=== PATIENT | female | born 1955 | race Caucasian/White ===

== ENCOUNTER 2021-12-23 12:15 | Outpatient (RCR) | payer MEDICARE, OTHER, SELFPAY ==
--- NOTE | 2021-07-11 18:00 | PT.OIE ---
Current Diagnoses Stiffness of right knee, not elsewhere classified (07/11/21) Muscle weakness (generalized) (07/11/21) Unsteadiness on feet (07/11/21) Fall on same level, unspecified, initial encounter (07/11/21) Past Medical History (Last Updated 08/13/19 @ 17:48 by Hernán Rodarte DO) Acne (~1965) Acquired short leg syndrome on left Cardiomyopathy (~2011) Cervical somatic dysfunction Chicken pox Chronic back pain Chronic neck pain Fractures Headache (~1968) Hearing loss (~2016) History of ankle surgery History of cholecystectomy History of foot surgery (~2006) History of knee replacement History of tonsillectomy Measles Migraines (~1968) Mumps Osteopenia (~2015) Segmental and somatic dysfunction of abdomen and other regions Segmental and somatic dysfunction of lumbar region Segmental and somatic dysfunction of sacral region Segmental and somatic dysfunction of thoracic region Shoulder pain Somatic dysfunction of both lower extremities Somatic dysfunction of spine affecting pelvic region Stiffness of foot Vision disorder Past Surgical History (Last Reviewed 08/02/19 @ 07:22 by Hernán Rodarte DO) Anesthesia Femur fracture (~1972) History of ankle surgery History of cholecystectomy History of foot surgery (~2006) History of knee replacement History of tonsillectomy Visit Care Team Role Provider Type Shekhar Olvera MD Primary Care Provider Non-Staff Specialty: Family Practice Address: [address] [place] [address], [id number] Email: Shahzad Fu MD Family Provider Physician Specialty: Orthopedic Surgery Address: [address] [place] [address], [id number] Email: [email or web address] Laila Damon MD Attending Provider Non-Staff Referring Provider Specialty: Orthopedic Surgery Address: [address] [place] [address], [place] [id number], [place], [address] Email: Physical Therapy Initial Evaluation PT-OP-A Visit Information Start: 07/05/21 15:54 Freq: Status: Active Protocol: Document 07/11/21 15:06 LRN (Rec: 07/11/21 18:30 LRN [id number]) Out-Patient Physical Therapy Visit Information Visit Information Visit Type Initial Evaluation Visit Start Time 15:06 Visit Stop Time 16:00 Total Visit Minutes 54 Visit Number 1 Evaluation Information Evaluation Date 07/11/21 Precautions Precautions TTWB LLE, Osteopenia, Tiburcio TKA, R forefoot fusion, fx R wrist . PT-OP-B Current Condition Start: 07/05/21 15:54 Freq: Status: Active Protocol: Document 07/11/21 15:06 LRN (Rec: 07/11/21 18:30 LRN [id number]) Current Condition History of Current Condition Onset Date 06/28/21 Current Complaints L History of Current Condition Slipper on ice landing on R hip with L leg behind resulting in L distal femur fracture. Pt is 11 days s/p ORIF 06/30/21. PRECAUTIONS: TTWB LLE, knee imimobilizer for comfort, ROM as tolerated L knee. Pt has been doing a HEP (QS, GS, heel slides, assisted hip AB) 2x/day. Pt denies pain except in neck at nighttime during sleep. PMH: Tiburcio TKA, R forefoot fusion, fx R wrist. Prior Treatments and Tests HEP issued post-op. Future Testing and Treatments Planned Pt surgical follow up in 2 days. Treatment Goals Patient/Caregiver Goals Pt goal is to be able to get up and walk when she wants. Pt is agreeable to goal of walkling without the use of an assistive device. Prior Functional Status Baseline Function- ADL's Independent Baseline Function- Mobility Independent Baseline Function- Gait Independent w/o assistive device Baseline Function- Recreation/Hobbies Walked 1.5 miles daily. Hiked with walking pole. Current Functional Impairments (Reported) Functional Limitations- ADL's Wheelchair and walker bound with TTWBing LLE for gait using FWW. Functional Limitations- Mobility/Gait Walked 68' prior to fatigue from UE's. Functional Limitations- Recreation/ Returning to exercise gym for Hobbies neck/shoulder/upper body exercise. Personal Factors Other Personal Factors That May Effect Lives in [place], [facility] Therapy/Recovery Marycruz Gary is physical therapy patient at same clinic . Tiburcio TKA, L forefoot fused, herniated disc with discectomy ?L4-L5. Osteopenia. PT-OP-C Subjective Start: 07/05/21 15:54 Freq: Status: Active Protocol: Document 07/11/21 15:06 LRN (Rec: 07/11/21 18:30 LRN [id number]) Patient Questionnaires Lower Extremity Functional Scale LEFS Score 17 LEFS Impairment 60 to 79% Impaired (Score 17- 31) OP-PT Pain Assessment Pain Assessment Grid Paper Pain Assessment Grid Completed Yes Comments Pain Comments No complaints of pain. PT-OP-G Mobility & Gait Start: 07/05/21 15:54 Freq: Status: Active Protocol: Document 07/11/21 15:06 LRN (Rec: 07/11/21 18:30 LRN [id number]) OP Mobility Evaluation Bed Mobility Supine to and from Sit Independent Transfers Sit to Stand Independent with FWW Bed to Chair Transfers Independent with FWW Car Transfers Independent Wheelchair Management Type of Wheelchair Normal Assessment Details Pt able to self propel and maneuver forward, backward and turn around independently. OP Gait Assessment Gait Gait Assistance Required: Independent Distance (Feet) 76 Able to Maintain Weight Bearing Status No During Gait Assistive Devices Assistive Device Front Wheeled Walker Gait Deviations General Gait Pattern Step-to Gait Comments Gait Comments Pt is TTWB LLE. PT-OP-K Range of Motion Start: 07/05/21 15:54 Freq: Status: Active Protocol: Document 07/11/21 15:06 LRN (Rec: 07/11/21 18:30 LRN [id number]) Knee Goniometric Range of Motion Knee Right Knee ROM WFL Yes Patient Position Supine Flexion Active (degrees) 133 Left Knee ROM WFL No Patient Position Supine Flexion Active (degrees) 88 Extension Passive (degrees) 0 Ankle and Foot Goniometric Range of Motion Ankle and Foot Right Active Ankle/Foot ROM WFL Yes Testing Position Supine Dorsiflexion with Knee Extended 0 Plantarflexion 45 Left Active Ankle/Foot ROM WFL No Testing Position Supine Dorsiflexion with Knee Extended 0 Plantarflexion 55 PT-OP-M Strength Start: 07/05/21 15:54 Freq: Status: Active Protocol: Document 07/11/21 15:06 LRN (Rec: 07/11/21 18:30 LRN [id number]) Knee Strength Knee Manual Muscle Testing Right Flexion (S2) 5 Normal Extension (L3) 5 Normal Left Flexion (S2) 2- Poor- Extension (L3) 2- Poor- Comments Deferred due TTWBing LLE restriction, but pt is able to partially bend and straighten her knee against gravity Ankle/Foot Strength Ankle and Foot Manual Muscle Testing Right Dorsiflexion (L4) 5 Normal Plantarflexion (S1) 5 Normal Left Dorsiflexion (L4) 2- Poor- Plantarflexion (S1) 2 Poor PT-OP-Q Treatments Start: 07/05/21 15:54 Freq: Status: Active Protocol: Document 07/11/21 15:06 LRN (Rec: 07/11/21 18:30 LRN [id number]) Therapeutic Exercises Supine Exercises Assisted hip AB Supine Exercise Name Assisted hip AB Side left Reps/Minutes 10x Heel slide Supine Exercise Name Heel slide Side left Reps/Minutes 10x QS/GS Supine Exercise Name QS & GS (once positioned in neutral at hips) Side left Reps/Minutes 10H x 10 Comments Phys cuing to not use ankle ms to assist with knee ext. Gait Training Gait Activity FWW Description Gt with FWW Level of Assistance SBA Surface Level Distance/Duration 76 Treatment Focus Not advancing body beyond hand placement on FWW. Comments Pt tended to walk with body forward of hands in NWBing position. Self-Care/Home Management Treatment Education Other Education Discussed results of evaluation, goals, and plan of care (POC). Pt agreeable to goals and POC. Discussed appropriate ex at her local gym to stick to upper body ex for strengthening and aerobic ex. Activities Self-Care/Home Management Activities I/S pt to continue HEP. I/S pt in tricep press with her TBands and hand weights at home. PT-OP-T Assessment and Plan Start: 07/05/21 15:54 Freq: Status: Active Protocol: Document 07/11/21 15:06 LRN (Rec: 07/11/21 18:30 LRN [id number]) Physical Therapy Assessment Rehab Potential Rehabilitation Potential Excellent Evaluation Complexity Number of Personal Factors/Comorbidities 3 or More Number of Body Systems Impaired 4 or More Clinical Presentation at Evaluation Evolving Impairments Impairments Activity Tolerance,Functional Activities,Functional Mobility ,Gait,ROM,Soft Tissue Mobility ,Strength Goals Three Impairment Decreased function per LEFS score of 17 Impairment LEFS score of 17 indicates 60- 79% impaired. Short Term Goal (STG) Improve function per LEFS score of no less than 32 (40- 59% impaired) STG Duration 09/10/21 Snow Shoveler Goal (LTG) Improve function per LEFS score no less than 63 (1-19% impaired). LTG Duration 10/09/21 Two Impairment Not able to ambulate without use of assistive device Impairment Gait 76' with FWW/NWBing LLE prior to fatigue. Short Term Goal (STG) Pt will be able to ambulate 100' with FWW with use of an assistive device and greater WBing of LLE when cleared for partial WBing of LLE. STG Duration 08/26/21 Snow Shoveler Goal (LTG) Pt will be able to tolerate no less than 100' gait without use of assistive device when cleared for full WBing of LLE. LTG Duration 10/09/21 One Impairment Lacks appropriate self care HEP Mcfp Goal (LTG) Pt will be independent in a self care HEP to promote ongoing L knee/hip strengthening/ROM and core stabilization. LTG Duration 10/09/21 Assessment Summary Assessment Pt is a 66 yo female who is 11 days s/p ORIF 06/30/21 to distal L femur. Referral indicates: PRECAUTIONS: TTWB LLE, knee imimobilizer for comfort, ROM as tolerated L knee. The pt attends today without complaints of L leg pain with review of her home exercises or transfer/gait mobility. She is decreased in her active knee and hip mobility. During gait she demonstrated slightly unsafe mechanics walking too far forward into the walker. She improved in safety with trainng, but has a tendency to go beyond her center of balance in the walker in her haste to speed up her gait distance. She is safe and appropriate with her wheelchair mobility. She was able to demonstrate good tolerance to her home exercises that were issued to her after surgery. Due to the lack of protocol, further physical therapy rehabilitation will be deferred until the pt returns from her 2 week follow up visit. The pt understand further recommendations are needed in order to proceed with her physical therapy. The pt would benefit from skilled physical therapy for upper body strengthening and education of self care and gait training, and when appropriate progressed on a ROM, strengthening and gait/ balance training once she is advanced to full LLE weightbearing. We will proceed as per your recommendation issued after her 2 week post-op visit. Physical Therapy Plan Frequency and Duration Frequency of Treatment 2x/Week Plan of Care Start Date 07/11/21 Plan of Care End Date 10/09/21 Therapeutic Interventions Therapeutic Interventions Aquatic Therapy,Balance Training,Gait Training,Home Exercise Program,Manual Therapy,Neuromuscular Re- education,Patient/Caregiver Education,Self-Care/Home Management,Soft Tissue Mobilization,Taping, Therapeutic Activities, Therapeutic Exercises Modalities Cold Pack/Ice Massage,Hot Packs Next Visit Focus/Plan Next Note Type Treatment Note Next Visit Plan Continue therapy 1x/week on self home program for upper body strengthening and gait training w/TTWBing of LLE. Progress to 2x/week when pt is able to tolerate more therapy and with progression of her weightbearing tolerance. Progress L knee rehab as recommended by surgical physician following her 2 week post-op visit. When appropriate start education/ training for self STM of scar if healed, assess knee strength & ROM against gravity , upper body/tricep ext/core strengthening. Hip strengthening if cleared for greater LLE weightbearing.
--- NOTE | 2021-07-11 18:00 | PT.OPPOC ---
Physical, Occupational & Speech Therapy At [facility] Current Diagnoses Stiffness of right knee, not elsewhere classified (07/11/21) Muscle weakness (generalized) (07/11/21) Unsteadiness on feet (07/11/21) Fall on same level, unspecified, initial encounter (07/11/21) Visit Care Team Role Provider Type Shekhar Olvera MD Primary Care Provider Non-Staff Specialty: Family Practice Address: [address] [place] [address], [id number] Email: Shahzad Fu MD Family Provider Physician Specialty: Orthopedic Surgery Address: [address] [place] [address], [address] Email: [email or web address] Laila Daomn MD Attending Provider Non-Staff Referring Provider Specialty: Orthopedic Surgery Address: [address] [place] [address], [id number], [place], [address] Email: Plan Of Care PT-OP-T Assessment and Plan Start: 07/05/21 15:54 Freq: Status: Active Protocol: Document 07/11/21 15:06 LRN (Rec: 07/11/21 18:30 LRN [id number]) Physical Therapy Assessment Rehab Potential Rehabilitation Potential Excellent Evaluation Complexity Number of Personal Factors/Comorbidities 3 or More Number of Body Systems Impaired 4 or More Clinical Presentation at Evaluation Evolving Impairments Impairments Activity Tolerance,Functional Activities,Functional Mobility ,Gait,ROM,Soft Tissue Mobility ,Strength Goals Three Impairment Decreased function per LEFS score of 17 Impairment LEFS score of 17 indicates 60- 79% impaired. Short Term Goal (STG) Improve function per LEFS score of no less than 32 (40- 59% impaired) STG Duration 09/10/21 [employer] Operator Goal (LTG) Improve function per LEFS score no less than 63 (1-19% impaired). LTG Duration 10/09/21 Two Impairment Not able to ambulate without use of assistive device Impairment Gait 76' with FWW/NWBing LLE prior to fatigue. Short Term Goal (STG) Pt will be able to ambulate 100' with FWW with use of an assistive device and greater WBing of LLE when cleared for partial WBing of LLE. STG Duration 08/26/21 Intermediate Goal (LTG) Pt will be able to tolerate no less than 100' gait without use of assistive device when cleared for full WBing of LLE. LTG Duration 10/09/21 One Impairment Lacks appropriate self care HEP Intermediate Goal (LTG) Pt will be independent in a self care HEP to promote ongoing L knee/hip strengthening/ROM and core stabilization. LTG Duration 10/09/21 Assessment Summary Assessment Pt is a 66 yo female who is 11 days s/p ORIF 06/30/21 to distal L femur. Referral indicates: PRECAUTIONS: TTWB LLE, knee imimobilizer for comfort, ROM as tolerated L knee. The pt attends today without complaints of L leg pain with review of her home exercises or transfer/gait mobility. She is decreased in her active knee and hip mobility. During gait she demonstrated slightly unsafe mechanics walking too far forward into the walker. She improved in safety with trainng, but has a tendency to go beyond her center of balance in the walker in her haste to speed up her gait distance. She is safe and appropriate with her wheelchair mobility. She was able to demonstrate good tolerance to her home exercises that were issued to her after surgery. Due to the lack of protocol, further physical therapy rehabilitation will be deferred until the pt returns from her 2 week follow up visit. The pt understand further recommendations are needed in order to proceed with her physical therapy. The pt would benefit from skilled physical therapy for upper body strengthening and education of self care and gait training, and when appropriate progressed on a ROM, strengthening and gait/ balance training once she is advanced to full LLE weightbearing. We will proceed as per your recommendation issued after her 2 week post-op visit. Physical Therapy Plan Frequency and Duration Frequency of Treatment 2x/Week Plan of Care Start Date 07/11/21 Plan of Care End Date 10/09/21 Therapeutic Interventions Therapeutic Interventions Aquatic Therapy,Balance Training,Gait Training,Home Exercise Program,Manual Therapy,Neuromuscular Re- education,Patient/Caregiver Education,Self-Care/Home Management,Soft Tissue Mobilization,Taping, Therapeutic Activities, Therapeutic Exercises Modalities Cold Pack/Ice Massage,Hot Packs Next Visit Focus/Plan Next Note Type Treatment Note Next Visit Plan Continue therapy 1x/week on self home program for upper body strengthening and gait training w/TTWBing of LLE. Progress to 2x/week when pt is able to tolerate more therapy and with progression of her weightbearing tolerance. Progress L knee rehab as recommended by surgical physician following her 2 week post-op visit. When appropriate start education/ training for self STM of scar if healed, assess knee strength & ROM against gravity , upper body/tricep ext/core strengthening. Hip strengthening if cleared for greater LLE weightbearing. Plan of Care Dates Plan of Care Start Date 07/11/21 Plan of Care End Date 10/09/21 Electronically Signed by: Colleen Mariano, PT 07/12/21 [id number] Please Sign and Return: I have reviewed this Plan of Care and certify that the skilled therapy services above are required to meet the patient?s needs. Physician Signature Date Printed Name and Credentials Clinical Instructor Signature Printed Name and Credentials
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
--- NOTE | 2021-08-11 07:35 | PT-OP ANOTE ---
Pt left voice message cancelled today's appt, spouse exposed to Covid + person with symptoms (although masks were donned). Pt states not having symptoms but wants to be safe and stay home quarantine will covid test in few days for safety before return to PT early next week.
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
--- NOTE | 2021-09-06 18:38 | PT.OTRE ---
Current Diagnoses Stiffness of right knee, not elsewhere classified (09/06/21) Muscle weakness (generalized) (09/06/21) Unsteadiness on feet (09/06/21) Fall on same level, unspecified, initial encounter (09/06/21) Presence of unspecified artificial knee joint (09/06/21) Past Medical History (Last Updated 08/13/19 @ 17:48 by Hernán Rodarte DO) Acne (~1965) Acquired short leg syndrome on left Cardiomyopathy (~2011) Cervical somatic dysfunction Chicken pox Chronic back pain Chronic neck pain Fractures Headache (~1968) Hearing loss (~2016) History of ankle surgery History of cholecystectomy History of foot surgery (~2006) History of knee replacement History of tonsillectomy Measles Migraines (~1968) Mumps Osteopenia (~2015) Segmental and somatic dysfunction of abdomen and other regions Segmental and somatic dysfunction of lumbar region Segmental and somatic dysfunction of sacral region Segmental and somatic dysfunction of thoracic region Shoulder pain Somatic dysfunction of both lower extremities Somatic dysfunction of spine affecting pelvic region Stiffness of foot Vision disorder Surgical History (Last Reviewed 08/02/19 @ 07:22 by Hernán Rodarte DO) Anesthesia Femur fracture (~1972) History of ankle surgery History of cholecystectomy History of foot surgery (~2006) History of knee replacement History of tonsillectomy Visit Care Team Role Provider Type Shekhar Olvera MD Primary Care Provider Non-Staff Specialty: Family Practice Address: [address] [place] [address], [id number] Email: Shahzad Fu MD Family Provider Physician Specialty: Orthopedic Surgery Address: [address] [place] [address], [address] Email: [email or web address] Laila Damon MD Attending Provider Non-Staff Referring Provider Specialty: Orthopedic Surgery Address: [address] [place] [id number], [place], [address] Email: Physical Therapy Re-Evaluation PT-OP-A Visit Information Start: 07/05/21 15:54 Freq: Status: Active Protocol: Document 09/06/21 13:48 [facility] (Rec: 09/06/21 18:37 [facility] [id number]) Out-Patient Physical Therapy Visit Information Visit Information Visit Type Re-Evaluation Visit Note 07/11 Visit Start Time 13:47 Visit Stop Time 14:30 Total Visit Minutes 43 Visit Number 12 Number of MANAGER DOCUMENTATION Visits 0 PT-OP-B Current Condition Start: 07/05/21 15:54 Freq: Status: Active Protocol: Document 07/11/21 15:06 [facility] (Rec: 07/11/21 18:30 [facility] [id number]) Current Condition History of Current Condition Onset Date 06/28/21 Current Complaints L History of Current Condition Slipper on ice landing on R hip with L leg behind resulting in L distal femur fracture. Pt is 11 days s/p ORIF 06/30/21. PRECAUTIONS: TTWB LLE, knee imimobilizer for comfort, ROM as tolerated L knee. Pt has been doing a HEP (QS, GS, heel slides, assisted hip AB) 2x/day. Pt denies pain except in neck at nighttime during sleep. PMH: Tiburcio TKA, R forefoot fusion, fx R wrist. Prior Treatments and Tests HEP issued post-op. Future Testing and Treatments Planned Pt surgical follow up in 2 days. Treatment Goals Patient/Caregiver Goals Pt goal is to be able to get up and walk when she wants. Pt is agreeable to goal of walkling without the use of an assistive device. Prior Functional Status Baseline Function- ADL's Independent Baseline Function- Mobility Independent Baseline Function- Gait Independent w/o assistive device Baseline Function- Recreation/Hobbies Walked 1.5 miles daily. Hiked with walking pole. Current Functional Impairments (Reported) Functional Limitations- ADL's Wheelchair and walker bound with TTWBing LLE for gait using FWW. Functional Limitations- Mobility/Gait Walked 68' prior to fatigue from UE's. Functional Limitations- Recreation/ Returning to exercise gym for Hobbies neck/shoulder/upper body exercise. Personal Factors Other Personal Factors That May Effect Lives in [place], spouse Therapy/Recovery Marycruz Vega is physical therapy patient at same clinic . Tiburcio TKA, L forefoot fused, herniated disc with discectomy ?L4-L5. Osteopenia. PT-OP-C Subjective Start: 07/05/21 15:54 Freq: Status: Active Protocol: Document 09/06/21 13:48 [facility] (Rec: 09/06/21 18:37 [facility] [id number]) OP-PT Subjective Patient Comments Patient Comments Pt reports she has been amb w/ single crutch. thinks it may be too short PT-OP-G Mobility & Gait Start: 07/05/21 15:54 Freq: Status: Active Protocol: Document 07/11/21 15:06 [facility] (Rec: 07/11/21 18:30 [facility] [id number]) OP Mobility Evaluation Bed Mobility Supine to and from Sit Independent Transfers Sit to Stand Independent with FWW Bed to Chair Transfers Independent with FWW Car Transfers Independent Wheelchair Management Type of Wheelchair Normal Assessment Details Pt able to self propel and maneuver forward, backward and turn around independently. OP Gait Assessment Gait Gait Assistance Required: Independent Distance (Feet) 76 Able to Maintain Weight Bearing Status No During Gait Assistive Devices Assistive Device Front Wheeled Walker Gait Deviations General Gait Pattern Step-to Gait Comments Gait Comments Pt is TTWB LLE. PT-OP-K Range of Motion Start: 07/05/21 15:54 Freq: Status: Active Protocol: Document 09/06/21 13:48 [facility] (Rec: 09/06/21 18:37 [facility] [id number]) Hip Goniometric Range of Motion Hip Measured in Degrees Right Active Flexion w/Knee Flexed 122 Straight Leg Raise 90 Abduction 32 Left Active Flexion w/Knee Flexed 116 Straight Leg Raise 90 Abduction 11 Comments AAROM abd and SLR Knee Goniometric Range of Motion Knee Measured in Degrees Left Flexion Active (degrees) 112 Extension Active (degrees) 0 PT-OP-M Strength Start: 07/05/21 15:54 Freq: Status: Active Protocol: Document 09/06/21 13:48 [facility] (Rec: 09/06/21 18:37 [facility] [id number]) Hip Strength Hip Manual Muscle Testing Left Flexion (L2) 3+ Fair+ Extension (S1) 3 Fair Abduction 3 Fair Adduction 3+ Fair+ External Rotation 3+ Fair+ Internal Rotation 3- Fair- Right Flexion (L2) 4+ Good+ Extension (S1) 3+ Fair+ Abduction 4- Good- Adduction 4 Good External Rotation 5 Normal Internal Rotation 5 Normal Knee Strength Knee Manual Muscle Testing Right Flexion (S2) 5 Normal Extension (L3) 5 Normal Left Flexion (S2) 4+ Good+ Extension (L3) 3+ Fair+ Ankle/Foot Strength Ankle and Foot Manual Muscle Testing Right Dorsiflexion (L4) 5 Normal Plantarflexion (S1) 5 Normal Left Dorsiflexion (L4) 5 Normal Plantarflexion (S1) 5 Normal Comments PF tested seated PT-OP-Q Treatments Start: 07/05/21 15:54 Freq: Status: Active Protocol: Document 09/06/21 13:48 [facility] (Rec: 09/06/21 18:37 [facility] [id number]) Therapeutic Exercises Standing Exercises TKE Side left Equipment Used L1 Reps/Minutes 15 Gait Training Gait Activity wt shifts Comments standing in mirror lat wt shifts before and after manual 10 ea working on finding neutral & finding full WB bwtn LEs gait Comments 1. work on step through w/good heel contact w/RLE and she would get off LLE quickly Manual Therapy Treatment Soft Tissue Mobilization QL Body Location L QL & ant and lat over iliac crest Mobilization Type Myofascial Release,Strumming, Sustained Pressure Intensity/Depth Moderate Body Position Sidelying Comments w/post dep FM PT-OP-T Assessment and Plan Start: 07/05/21 15:54 Freq: Status: Active Protocol: Document 09/06/21 13:48 [facility] (Rec: 09/06/21 18:37 [facility] [id number]) Physical Therapy Assessment Goals ambulation Short Term Goal (STG) Pt will be able to amb short distances w/o AD w/good gait mechanics STG Duration 10/29/21 [facility] Goal (LTG) Pt will be able to amb 2 miles without AD w/o inc pian greater than 2/10. LTG Duration 12/07/21 Three Impairment Decreased function per LEFS score of 17 Impairment LEFS score of 17 indicates 60- 79% impaired. Short Term Goal (STG) Improve function per LEFS score of no less than 32 (40- 59% impaired) 09/06-n/t STG Duration 10/07/21 [facility] Goal (LTG) Improve function per LEFS score no less than 63 (1-19% impaired). LTG Duration 12/02/21 Two Impairment Not able to ambulate without use of assistive device Impairment Gait 76' with FWW/NWBing LLE prior to fatigue. Short Term Goal (STG) Pt will be able to ambulate 100' with FWW with use of an assistive device and greater WBing of LLE when cleared for partial WBing of LLE. 08/23/21: progressinft maintaining PWB 20% of BW w/ FWW, step to gait. STG Duration achieved 09/06 [facility] Goal (LTG) Pt will be able to tolerate no less than 100' gait without use of assistive device when cleared for full WBing of LLE. 08/23/21: progressing 155ft maintaining PWB 20% of BW w/ FWW, step to gait. LTG Duration achieved 3 One Impairment Lacks appropriate self care HEP Short Term Goal (STG) Pt will be independent in a self care HEP to promote ongoing L knee/hip strengthening/ROM and core stabilization. 09/06-advancinga s able STG Duration 10/07 [facility] Goal (LTG) Pt will have at least 4+/5 LE MMT in all planes B to show improved stability of hip and knee to improve ability to mobilize int he community LTG Duration 12/07 Assessment Summary Assessment Pt is cleared now with new referral for progressive WBAT to LLE. She still has significant quad and glute weakness that limits her ability to ambulate with normalized motion. She had difficulty getting LLE to ground when R knee was straight but after manual, pt was able to comfortably. She was trained w/wt shifts for further awareness of wt shifting to LLE. Cont PT to progress gait, knee and hip ROM on L and LE and core strengthening along w/balance to return to typical active lifestyle. Physical Therapy Plan Frequency and Duration Frequency of Treatment 2x/Week Duration of Treatment 3 months Plan of Care Start Date 09/06/21 Plan of Care End Date 12/07/21 Therapeutic Interventions Therapeutic Interventions Aquatic Therapy,Balance Training,Gait Training,Home Exercise Program,Joint Mobilizations,Manual Therapy, Neuromuscular Re-education, Patient/Caregiver Education, Self-Care/Home Management,Soft Tissue Mobilization,Taping, Therapeutic Activities, Therapeutic Exercises Modalities Cold Pack/Ice Massage,Electric Stimulation,Hot Packs, Ultrasound Next Visit Focus/Plan Next Note Type Treatment Note Next Visit Plan advance terminal quad strength , work on wt shifting in standing for improved quad and glute engagement, try some balance activities DL, manual to improve pelvic girdle patterns and L hip ROM
--- NOTE | 2021-09-06 18:38 | PT.OPPOC ---
Physical, Occupational & Speech Therapy At [facility] Current Diagnoses Stiffness of right knee, not elsewhere classified (09/06/21) Muscle weakness (generalized) (09/06/21) Unsteadiness on feet (09/06/21) Fall on same level, unspecified, initial encounter (09/06/21) Presence of unspecified artificial knee joint (09/06/21) Visit Care Team Role Provider Type Shekhar Olvera MD Primary Care Provider Non-Staff Specialty: Family Practice Address: [address] [place] [address], [address] Email: Shahzad uF MD Family Provider Physician Specialty: Orthopedic Surgery Address: [address] [place] [address], [address] Email: [email or web address] Laila Damon MD Attending Provider Non-Staff Referring Provider Specialty: Orthopedic Surgery Address: [address] [place] [address], [id number], [place], [address] Email: Plan Of Care PT-OP-T Assessment and Plan Start: 07/05/21 15:54 Freq: Status: Active Protocol: Document 09/06/21 13:48 [facility] (Rec: 09/06/21 18:37 [facility] [id number]) Physical Therapy Assessment Goals ambulation Short Term Goal (STG) Pt will be able to amb short distances w/o AD w/good gait mechanics STG Duration 10/29/21 [employer] Goal (LTG) Pt will be able to amb 2 miles without AD w/o inc pian greater than 2/10. LTG Duration 12/07/21 Three Impairment Decreased function per LEFS score of 17 Impairment LEFS score of 17 indicates 60- 79% impaired. Short Term Goal (STG) Improve function per LEFS score of no less than 32 (40- 59% impaired) 8-n/t STG Duration 10/07/21 [employer] Goal (LTG) Improve function per LEFS score no less than 63 (1-19% impaired). LTG Duration 12/02/21 Two Impairment Not able to ambulate without use of assistive device Impairment Gait 76' with FWW/NWBing LLE prior to fatigue. Short Term Goal (STG) Pt will be able to ambulate 100' with FWW with use of an assistive device and greater WBing of LLE when cleared for partial WBing of LLE. 08/23/21: progressinft maintaining PWB 20% of BW w/ FWW, step to gait. STG Duration achieved 09/06 [facility] Goal (LTG) Pt will be able to tolerate no less than 100' gait without use of assistive device when cleared for full WBing of LLE. 08/23/21: progressing 155ft maintaining PWB 20% of BW w/ FWW, step to gait. LTG Duration achieved 09/06 One Impairment Lacks appropriate self care HEP Short Term Goal (STG) Pt will be independent in a self care HEP to promote ongoing L knee/hip strengthening/ROM and core stabilization. 09/06-advancinga s able STG Duration 10/07 [facility] Goal (LTG) Pt will have at least 4+/5 LE MMT in all planes B to show improved stability of hip and knee to improve ability to mobilize int he community LTG Duration 12/07 Assessment Summary Assessment Pt is cleared now with new referral for progressive WBAT to LLE. She still has significant quad and glute weakness that limits her ability to ambulate with normalized motion. She had difficulty getting LLE to ground when R knee was straight but after manual, pt was able to comfortably. She was trained w/wt shifts for further awareness of wt shifting to LLE. Cont PT to progress gait, knee and hip ROM on L and LE and core strengthening along w/balance to return to typical active lifestyle. Physical Therapy Plan Frequency and Duration Frequency of Treatment 2x/Week Duration of Treatment 3 months Plan of Care Start Date 09/06/21 Plan of Care End Date 12/07/21 Therapeutic Interventions Therapeutic Interventions Aquatic Therapy,Balance Training,Gait Training,Home Exercise Program,Joint Mobilizations,Manual Therapy, Neuromuscular Re-education, Patient/Caregiver Education, Self-Care/Home Management,Soft Tissue Mobilization,Taping, Therapeutic Activities, Therapeutic Exercises Modalities Cold Pack/Ice Massage,Electric Stimulation,Hot Packs, Ultrasound Next Visit Focus/Plan Next Note Type Treatment Note Next Visit Plan advance terminal quad strength , work on wt shifting in standing for improved quad and glute engagement, try some balance activities DL, manual to improve pelvic girdle patterns and L hip ROM Plan of Care Dates Plan of Care Start Date 09/06/21 Plan of Care End Date 12/07/21 Electronically Signed by: Brit Peterson, PT 09/06/21 0974 Please Sign and Return: I have reviewed this Plan of Care and certify that the skilled therapy services above are required to meet the patient?s needs. Physician Signature Date Printed Name and Credentials Clinical Instructor Signature Printed Name and Credentials
--- NOTE | 2021-09-09 15:04 | PT.OTN ---
Current Diagnoses Stiffness of right knee, not elsewhere classified (09/09/21) Muscle weakness (generalized) (09/09/21) Unsteadiness on feet (09/09/21) Fall on same level, unspecified, initial encounter (09/09/21) Presence of unspecified artificial knee joint (09/09/21) Physical Therapy Treatment Note PT-OP-A Visit Information Start: 07/05/21 15:54 Freq: Status: Active Protocol: Document 09/09/21 14:52 LJ (Rec: 09/09/21 15:04 LJ [id number]) Out-Patient Physical Therapy Visit Information Visit Information Visit Type Aquatic Treatment Note Visit Start Time 11:00 Visit Stop Time 11:45 Total Visit Minutes 45 Visit Number 13 Number of ACCOUNT TECHNICIAN Visits 1 PT-OP-B Current Condition Start: 07/05/21 15:54 Freq: Status: Active Protocol: Document 07/11/21 15:06 LRN (Rec: 07/11/21 18:30 LRN [id number]) Current Condition History of Current Condition Onset Date 06/28/21 Current Complaints L History of Current Condition Slipper on ice landing on R hip with L leg behind resulting in L distal femur fracture. Pt is 11 days s/p ORIF 06/30/21. PRECAUTIONS: TTWB LLE, knee imimobilizer for comfort, ROM as tolerated L knee. Pt has been doing a HEP (QS, GS, heel slides, assisted hip AB) 2x/day. Pt denies pain except in neck at nighttime during sleep. PMH: Tiburcio TKA, R forefoot fusion, fx R wrist. Prior Treatments and Tests HEP issued post-op. Future Testing and Treatments Planned Pt surgical follow up in 2 days. Treatment Goals Patient/Caregiver Goals Pt goal is to be able to get up and walk when she wants. Pt is agreeable to goal of walkling without the use of an assistive device. Prior Functional Status Baseline Function- ADL's Independent Baseline Function- Mobility Independent Baseline Function- Gait Independent w/o assistive device Baseline Function- Recreation/Hobbies Walked 1.5 miles daily. Hiked with walking pole. Current Functional Impairments (Reported) Functional Limitations- ADL's Wheelchair and walker bound with TTWBing LLE for gait using FWW. Functional Limitations- Mobility/Gait Walked 68' prior to fatigue from UE's. Functional Limitations- Recreation/ Returning to exercise gym for Hobbies neck/shoulder/upper body exercise. Personal Factors Other Personal Factors That May Effect Lives in [place], spouse Therapy/Recovery Marycruz Vega is physical therapy patient at same clinic . Tiburcio TKA, L forefoot fused, herniated disc with discectomy ?L4-L5. Osteopenia. PT-OP-C Subjective Start: 07/05/21 15:54 Freq: Status: Active Protocol: Document 09/09/21 14:52 LJ (Rec: 09/09/21 15:04 LJ [id number]) OP-PT Subjective Patient Comments Patient Comments Pt arrived ambulating with 2 crutches. States she is feeling very weak on LLE and her L knee is somewhat painful . She wants to get her gait pattern established for better ambulation on land PT-OP-G Mobility & Gait Start: 07/05/21 15:54 Freq: Status: Active Protocol: Document 07/11/21 15:06 LRN (Rec: 07/11/21 18:30 LR [id number]) OP Mobility Evaluation Bed Mobility Supine to and from Sit Independent Transfers Sit to Stand Independent with FWW Bed to Chair Transfers Independent with FWW Car Transfers Independent Wheelchair Management Type of Wheelchair Normal Assessment Details Pt able to self propel and maneuver forward, backward and turn around independently. OP Gait Assessment Gait Gait Assistance Required: Independent Distance (Feet) 76 Able to Maintain Weight Bearing Status No During Gait Assistive Devices Assistive Device Front Wheeled Walker Gait Deviations General Gait Pattern Step-to Gait Comments Gait Comments Pt is TTWB LLE. PT-OP-K Range of Motion Start: 07/05/21 15:54 Freq: Status: Active Protocol: Document 09/06/21 13:48 [facility] (Rec: 09/06/21 18:37 [facility] [id number]) Hip Goniometric Range of Motion Hip Right Active Flexion w/Knee Flexed 122 Straight Leg Raise 90 Abduction 32 Left Active Flexion w/Knee Flexed 116 Straight Leg Raise 90 Abduction 11 Comments AAROM abd and SLR Knee Goniometric Range of Motion Knee Left Flexion Active (degrees) 112 Extension Active (degrees) 0 PT-OP-M Strength Start: 07/05/21 15:54 Freq: Status: Active Protocol: Document 09/06/21 13:48 [facility] (Rec: 09/06/21 18:37 [facility] [id number]) Hip Strength Hip Manual Muscle Testing Left Flexion (L2) 3+ Fair+ Extension (S1) 3 Fair Abduction 3 Fair Adduction 3+ Fair+ External Rotation 3+ Fair+ Internal Rotation 3- Fair- Right Flexion (L2) 4+ Good+ Extension (S1) 3+ Fair+ Abduction 4- Good- Adduction 4 Good External Rotation 5 Normal Internal Rotation 5 Normal Knee Strength Knee Manual Muscle Testing Right Flexion (S2) 5 Normal Extension (L3) 5 Normal Left Flexion (S2) 4+ Good+ Extension (L3) 3+ Fair+ Ankle/Foot Strength Ankle and Foot Manual Muscle Testing Right Dorsiflexion (L4) 5 Normal Plantarflexion (S1) 5 Normal Left Dorsiflexion (L4) 5 Normal Plantarflexion (S1) 5 Normal Comments PF tested seated PT-OP-Q Treatments Start: 07/05/21 15:54 Freq: Status: Active Protocol: Document 09/06/21 13:48 [facility] (Rec: 09/06/21 18:37 [facility] [id number]) Therapeutic Exercises Standing Exercises TKE Side left Equipment Used L1 Reps/Minutes 15 Gait Training Gait Activity wt shifts Comments standing in mirror lat wt shifts before and after manual 10 ea working on finding neutral & finding full WB bwtn LEs gait Comments 1. work on step through w/good heel contact w/RLE and she would get off LLE quickly Manual Therapy Treatment Soft Tissue Mobilization QL Body Location L QL & ant and lat over iliac crest Mobilization Type Myofascial Release,Strumming, Sustained Pressure Intensity/Depth Moderate Body Position Sidelying Comments w/post dep FM PT-OP-S Aquatic Treatment Start: 08/26/21 14:30 Freq: Status: Active Protocol: Document 09/09/21 14:52 VIK (Rec: 09/09/21 15:04 LJ [id number]) Aquatics Treatment Pool Entry/Exit Pool Entry/Exit Method Lift Assistance Standby Assistance Water Walking [place] Water Level Chest Level Monster Walk Water Level Chest Level Lunge Walk Water Level Waist Level [place] Water Level Chest Level [place] Water Level Chest Level Comments emphasize toes forward Sideways Water Level Chest Level Comments emphasize toes forward Backwards Water Level Chest Level Forwards Water Level Chest Level Lower Extremity Exercises hip hike Water Level Waist Level Reps/Duration 15 B HS curl Body Position Standing Water Level Chest Level Reps/Duration 15 x 2 B seated knee fl/ext Body Position Sitting Water Level Neck Level Reps/Duration 15 x 2 B hip f/e;ab/ad;circles Details hh on wall Body Position Standing Water Level Chest Level Reps/Duration 10 B Lower Extremity Stretches gastroc, HS, soleus Details assisted Body Position Standing Water Level Waist Level Reps/Duration 2 x 45' LLE Comments noodle under ankle TFL Details at wall Body Position Standing Water Level Chest Level Reps/Duration 2 x 30' B Comments LLE quads, hip flexors Details at wall Body Position Standing Water Level Waist Level Reps/Duration 2 x 45' B Comments noodle under ankle-quad stretch Spinal Exercises seated wonder board Reps/Duration 5 min Comments pulling forward, hand out of water B, pelvic tilts all ways [place] Activities [place] Activities Bicycle,Bicycle Backwards, Cross Country,Running,Sit Kicks Other Activities Deep kicks at wall DLS Equipment belt Duration 15 PT-OP-T Assessment and Plan Start: 07/05/21 15:54 Freq: Status: Active Protocol: Document 09/09/21 14:52 VIK (Rec: 09/09/21 15:04 VIK [id number]) Physical Therapy Assessment Rehab Potential Rehabilitation Potential Excellent Evaluation Complexity Number of Personal Factors/Comorbidities 3 or More Number of Body Systems Impaired 4 or More Clinical Presentation at Evaluation Evolving Impairments Impairments Activity Tolerance,Functional Activities,Functional Mobility ,Gait,ROM,Soft Tissue Mobility ,Strength Goals ambulation Short Term Goal (STG) Pt will be able to amb short distances w/o AD w/good gait mechanics STG Duration 10/29/21 Mcc Goal (LTG) Pt will be able to amb 2 miles without AD w/o inc pian greater than 2/10. LTG Duration 12/07/21 Three Impairment Decreased function per LEFS score of 17 Impairment LEFS score of 17 indicates 60- 79% impaired. Short Term Goal (STG) Improve function per LEFS score of no less than 32 (40- 59% impaired) /8-n/t STG Duration 10/07/21 Control Systems Designer Goal (LTG) Improve function per LEFS score no less than 63 (1-19% impaired). LTG Duration 12/02/21 Two Impairment Not able to ambulate without use of assistive device Impairment Gait 76' with FWW/NWBing LLE prior to fatigue. Short Term Goal (STG) Pt will be able to ambulate 100' with FWW with use of an assistive device and greater WBing of LLE when cleared for partial WBing of LLE. 08/23/21: progressinft maintaining PWB 20% of BW w/ FWW, step to gait. STG Duration achieved 8 Mcc Goal (LTG) Pt will be able to tolerate no less than 100' gait without use of assistive device when cleared for full WBing of LLE. 08/23/21: progressing 155ft maintaining PWB 20% of BW w/ FWW, step to gait. LTG Duration achieved 38 One Impairment Lacks appropriate self care HEP Short Term Goal (STG) Pt will be independent in a self care HEP to promote ongoing L knee/hip strengthening/ROM and core stabilization. 09/06-advancinga s able STG Duration 10/07 Mcc Goal (LTG) Pt will have at least 4+/5 LE MMT in all planes B to show improved stability of hip and knee to improve ability to mobilize int he community LTG Duration 12/07 Assessment Summary Assessment Pt progressing well with walking exercises demonstrating good balance particularly with lunge walking. She has a bit of difficulty with keeping knees straight during cc ski in deep water but able to maintain vertical position with all exercises. Physical Therapy Plan Frequency and Duration Frequency of Treatment 2x/Week Duration of Treatment 3 months Plan of Care Start Date 09/06/21 Plan of Care End Date 12/07/21 Therapeutic Interventions Therapeutic Interventions Aquatic Therapy,Balance Training,Gait Training,Home Exercise Program,Joint Mobilizations,Manual Therapy, Neuromuscular Re-education, Patient/Caregiver Education, Self-Care/Home Management,Soft Tissue Mobilization,Taping, Therapeutic Activities, Therapeutic Exercises Modalities Cold Pack/Ice Massage,Electric Stimulation,Hot Packs, Ultrasound Next Visit Focus/Plan Next Note Type Treatment Note Next Visit Plan Progress strength training of quads and glutes in shallow and deep water exercises. Add resistance equipment when safe to do so.
--- NOTE | 2021-09-14 19:06 | PT.OTN ---
Current Diagnoses Stiffness of right knee, not elsewhere classified (09/14/21) Muscle weakness (generalized) (09/14/21) Unsteadiness on feet (09/14/21) Fall on same level, unspecified, initial encounter (09/14/21) Presence of unspecified artificial knee joint (09/14/21) Physical Therapy Treatment Note PT-OP-A Visit Information Start: 07/05/21 15:54 Freq: Status: Active Protocol: Document 09/14/21 12:59 LR (Rec: 09/14/21 19:06 [facility] [id number]) Out-Patient Physical Therapy Visit Information Visit Information Visit Type Treatment Note Visit Note 09/08 Visit Start Time 13:00 Visit Stop Time 13:45 Total Visit Minutes 45 Visit Number 14 Number of PUMPING STATION ENGINEER Visits 0 PT-OP-B Current Condition Start: 07/05/21 15:54 Freq: Status: Active Protocol: Document 07/11/21 15:06 LRN (Rec: 07/11/21 18:30 LRN [id number]) Current Condition History of Current Condition Onset Date 06/28/21 Current Complaints L History of Current Condition Slipper on ice landing on R hip with L leg behind resulting in L distal femur fracture. Pt is 11 days s/p ORIF 06/30/21. PRECAUTIONS: TTWB LLE, knee imimobilizer for comfort, ROM as tolerated L knee. Pt has been doing a HEP (QS, GS, heel slides, assisted hip AB) 2x/day. Pt denies pain except in neck at nighttime during sleep. PMH: Tiburcio TKA, R forefoot fusion, fx R wrist. Prior Treatments and Tests HEP issued post-op. Future Testing and Treatments Planned Pt surgical follow up in 2 days. Treatment Goals Patient/Caregiver Goals Pt goal is to be able to get up and walk when she wants. Pt is agreeable to goal of walkling without the use of an assistive device. Prior Functional Status Baseline Function- ADL's Independent Baseline Function- Mobility Independent Baseline Function- Gait Independent w/o assistive device Baseline Function- Recreation/Hobbies Walked 1.5 miles daily. Hiked with walking pole. Current Functional Impairments (Reported) Functional Limitations- ADL's Wheelchair and walker bound with TTWBing LLE for gait using FWW. Functional Limitations- Mobility/Gait Walked 68' prior to fatigue from UE's. Functional Limitations- Recreation/ Returning to exercise gym for Hobbies neck/shoulder/upper body exercise. Personal Factors Other Personal Factors That May Effect Lives in [place], spouse Therapy/Recovery Marycruz Gary is physical therapy patient at same clinic . Tiburcio TKA, L forefoot fused, herniated disc with discectomy ?L4-L5. Osteopenia. PT-OP-C Subjective Start: 07/05/21 15:54 Freq: Status: Active Protocol: Document 09/14/21 12:59 [facility] (Rec: 09/14/21 19:06 [facility] [id number]) OP-PT Subjective Patient Comments Patient Comments Pt reports personal assistant made hr do an exercise that dec knee pain PT-OP-G Mobility & Gait Start: 07/05/21 15:54 Freq: Status: Active Protocol: Document 07/11/21 15:06 LR (Rec: 07/11/21 18:30 [facility] [id number]) OP Mobility Evaluation Bed Mobility Supine to and from Sit Independent Transfers Sit to Stand Independent with FWW Bed to Chair Transfers Independent with FWW Car Transfers Independent Wheelchair Management Type of Wheelchair Normal Assessment Details Pt able to self propel and maneuver forward, backward and turn around independently. OP Gait Assessment Gait Gait Assistance Required: Independent Distance (Feet) 76 Able to Maintain Weight Bearing Status No During Gait Assistive Devices Assistive Device Front Wheeled Walker Gait Deviations General Gait Pattern Step-to Gait Comments Gait Comments Pt is TTWB LLE. PT-OP-K Range of Motion Start: 07/05/21 15:54 Freq: Status: Active Protocol: Document 09/06/21 13:48 [facility] (Rec: 09/06/21 18:37 [facility] [id number]) Hip Goniometric Range of Motion Hip Right Active Flexion w/Knee Flexed 122 Straight Leg Raise 90 Abduction 32 Left Active Flexion w/Knee Flexed 116 Straight Leg Raise 90 Abduction 11 Comments AAROM abd and SLR Knee Goniometric Range of Motion Knee Left Flexion Active (degrees) 112 Extension Active (degrees) 0 PT-OP-M Strength Start: 07/05/21 15:54 Freq: Status: Active Protocol: Document 09/06/21 13:48 [facility] (Rec: 09/06/21 18:37 [facility] [id number]) Hip Strength Hip Manual Muscle Testing Left Flexion (L2) 3+ Fair+ Extension (S1) 3 Fair Abduction 3 Fair Adduction 3+ Fair+ External Rotation 3+ Fair+ Internal Rotation 3- Fair- Right Flexion (L2) 4+ Good+ Extension (S1) 3+ Fair+ Abduction 4- Good- Adduction 4 Good External Rotation 5 Normal Internal Rotation 5 Normal Knee Strength Knee Manual Muscle Testing Right Flexion (S2) 5 Normal Extension (L3) 5 Normal Left Flexion (S2) 4+ Good+ Extension (L3) 3+ Fair+ Ankle/Foot Strength Ankle and Foot Manual Muscle Testing Right Dorsiflexion (L4) 5 Normal Plantarflexion (S1) 5 Normal Left Dorsiflexion (L4) 5 Normal Plantarflexion (S1) 5 Normal Comments PF tested seated PT-OP-Q Treatments Start: 07/05/21 15:54 Freq: Status: Active Protocol: Document 09/14/21 12:59 [facility] (Rec: 09/14/21 19:06 [facility] [id number]) Therapeutic Activity Therapeutic Activity posture Comments 1.seated posture re education after manual and before manual -unable to achieve before manual (worked on dec pelvic shear, dec SB and dec rot) 2. standing posture working on even WB and avoiding pelvic shear Manual Therapy Treatment Joint Mobilizations sacrum Joint L caudal FM and UPA L FM innominate Joint L Direction caudal glide FM, ER FM, flex FM & ext FM hip Joint L Direction on axis FM & inf FM PT-OP-S Aquatic Treatment Start: 08/26/21 14:30 Freq: Status: Active Protocol: Document 09/09/21 14:52 VIK (Rec: 09/09/21 15:04 [id number]) Aquatics Treatment Pool Entry/Exit Pool Entry/Exit Method Lift Assistance Standby Assistance Water Walking [place] Water Level Chest Level Monster Walk Water Level Chest Level Lunge Walk Water Level Waist Level [place] Water Level Chest Level [place] Water Level Chest Level Comments emphasize toes forward Sideways Water Level Chest Level Comments emphasize toes forward Backwards Water Level Chest Level [place] Water Level Chest Level Lower Extremity Exercises hip hike Water Level Waist Level Reps/Duration 15 B HS curl Body Position Standing Water Level Chest Level Reps/Duration 15 x 2 B seated knee fl/ext Body Position Sitting Water Level Neck Level Reps/Duration 15 x 2 B hip f/e;ab/ad;circles Details hh on wall Body Position Standing Water Level Chest Level Reps/Duration 10 B Lower Extremity Stretches gastroc, HS, soleus Details assisted Body Position Standing Water Level Waist Level Reps/Duration 2 x 45' LLE Comments noodle under ankle TFL Details at wall Body Position Standing Water Level Chest Level Reps/Duration 2 x 30' B Comments LLE quads, hip flexors Details at wall Body Position Standing Water Level Waist Level Reps/Duration 2 x 45' B Comments noodle under ankle-quad stretch Spinal Exercises seated wonder board Reps/Duration 5 min Comments pulling forward, hand out of water B, pelvic tilts all ways [place] Activities [place] Activities Bicycle,Bicycle Backwards, Cross [place],Running,Sit Kicks Other Activities Deep kicks at wall DLS Equipment belt Duration 15 PT-OP-T Assessment and Plan Start: 07/05/21 15:54 Freq: Status: Active Protocol: Document 09/14/21 12:59 [facility] (Rec: 09/14/21 19:06 [facility] [id number]) Physical Therapy Assessment Goals ambulation Short Term Goal (STG) Pt will be able to amb short distances w/o AD w/good gait mechanics STG Duration 10/29/21 Ui Application Developer Goal (LTG) Pt will be able to amb 2 miles without AD w/o inc pian greater than 2/10. LTG Duration 12/07/21 Three Impairment Decreased function per LEFS score of 17 Impairment LEFS score of 17 indicates 60- 79% impaired. Short Term Goal (STG) Improve function per LEFS score of no less than 32 (40- 59% impaired) 09/06-n/t STG Duration 10/07/21 Ui Application Developer Goal (LTG) Improve function per LEFS score no less than 63 (1-19% impaired). LTG Duration 12/02/21 Two Impairment Not able to ambulate without use of assistive device Impairment Gait 76' with FWW/NWBing LLE prior to fatigue. Short Term Goal (STG) Pt will be able to ambulate 100' with FWW with use of an assistive device and greater WBing of LLE when cleared for partial WBing of LLE. 08/23/21: progressinft maintaining PWB 20% of BW w/ FWW, step to gait. STG Duration achieved 09/06 Assisted Goal (LTG) Pt will be able to tolerate no less than 100' gait without use of assistive device when cleared for full WBing of LLE. 08/23/21: progressing 155ft maintaining PWB 20% of BW w/ FWW, step to gait. LTG Duration achieved 09/06 One Impairment Lacks appropriate self care HEP Short Term Goal (STG) Pt will be independent in a self care HEP to promote ongoing L knee/hip strengthening/ROM and core stabilization. 09/06-advancinga s able STG Duration 10/07 Assisted Goal (LTG) Pt will have at least 4+/5 LE MMT in all planes B to show improved stability of hip and knee to improve ability to mobilize int he community LTG Duration 12/07 Assessment Summary Assessment Pt had imrpoved ability to sit and stand with good alignment w/less discomfort after manual treatment. She has dec SI stability which likely causes inc pain and overall dysfunction Physical Therapy Plan Frequency and Duration Frequency of Treatment 2x/Week Duration of Treatment 3 months Plan of Care Start Date 09/06/21 Plan of Care End Date 12/07/21 Next Visit Focus/Plan Next Note Type Treatment Note Next Visit Plan PNF post and ant dep to work on pelvic stability
--- NOTE | 2021-09-21 18:32 | PT.OTN ---
Current Diagnoses Stiffness of right knee, not elsewhere classified (09/21/21) Muscle weakness (generalized) (09/21/21) Unsteadiness on feet (09/21/21) Fall on same level, unspecified, initial encounter (09/21/21) Presence of unspecified artificial knee joint (09/21/21) Physical Therapy Treatment Note PT-OP-A Visit Information Start: 07/05/21 15:54 Freq: Status: Active Protocol: Document 09/21/21 13:00 LR (Rec: 09/21/21 18:32 [facility] [id number]) Out-Patient Physical Therapy Visit Information Visit Information Visit Type Treatment Note Visit Note 10/09 Visit Start Time 13:01 Visit Stop Time 13:46 Total Visit Minutes 45 Visit Number 15 Number of FIBERGLASS TUBE MOLDER Visits 0 PT-OP-B Current Condition Start: 07/05/21 15:54 Freq: Status: Active Protocol: Document 07/11/21 15:06 LRN (Rec: 07/11/21 18:30 LRN [id number]) Current Condition History of Current Condition Onset Date 06/28/21 Current Complaints L History of Current Condition Slipper on ice landing on R hip with L leg behind resulting in L distal femur fracture. Pt is 11 days s/p ORIF 06/30/21. PRECAUTIONS: TTWB LLE, knee imimobilizer for comfort, ROM as tolerated L knee. Pt has been doing a HEP (QS, GS, heel slides, assisted hip AB) 2x/day. Pt denies pain except in neck at nighttime during sleep. PMH: Tiburcio TKA, R forefoot fusion, fx R wrist. Prior Treatments and Tests HEP issued post-op. Future Testing and Treatments Planned Pt surgical follow up in 2 days. Treatment Goals Patient/Caregiver Goals Pt goal is to be able to get up and walk when she wants. Pt is agreeable to goal of walkling without the use of an assistive device. Prior Functional Status Baseline Function- ADL's Independent Baseline Function- Mobility Independent Baseline Function- Gait Independent w/o assistive device Baseline Function- Recreation/Hobbies Walked 1.5 miles daily. Hiked with walking pole. Current Functional Impairments (Reported) Functional Limitations- ADL's Wheelchair and walker bound with TTWBing LLE for gait using FWW. Functional Limitations- Mobility/Gait Walked 68' prior to fatigue from UE's. Functional Limitations- Recreation/ Returning to exercise gym for Hobbies neck/shoulder/upper body exercise. Personal Factors Other Personal Factors That May Effect Lives in [place], spouse Therapy/Recovery Marycruz Vega is physical therapy patient at same clinic . Tiburcio TKA, L forefoot fused, herniated disc with discectomy ?L4-L5. Osteopenia. PT-OP-C Subjective Start: 07/05/21 15:54 Freq: Status: Active Protocol: Document 09/21/21 13:00 [facility] (Rec: 09/21/21 18:32 [facility] [id number]) OP-PT Subjective Patient Comments Patient Comments Pt reports she is wanting to get back to doing more. PT-OP-G Mobility & Gait Start: 07/05/21 15:54 Freq: Status: Active Protocol: Document 07/11/21 15:06 [facility] (Rec: 07/11/21 18:30 [facility] [id number]) OP Mobility Evaluation Bed Mobility Supine to and from Sit Independent Transfers Sit to Stand Independent with FWW Bed to Chair Transfers Independent with FWW Car Transfers Independent Wheelchair Management Type of Wheelchair Normal Assessment Details Pt able to self propel and maneuver forward, backward and turn around independently. OP Gait Assessment Gait Gait Assistance Required: Independent Distance (Feet) 76 Able to Maintain Weight Bearing Status No During Gait Assistive Devices Assistive Device Front Wheeled Walker Gait Deviations General Gait Pattern Step-to Gait Comments Gait Comments Pt is TTWB LLE. PT-OP-K Range of Motion Start: 07/05/21 15:54 Freq: Status: Active Protocol: Document 09/06/21 13:48 [facility] (Rec: 09/06/21 18:37 [facility] [id number]) Hip Goniometric Range of Motion Hip Right Active Flexion w/Knee Flexed 122 Straight Leg Raise 90 Abduction 32 Left Active Flexion w/Knee Flexed 116 Straight Leg Raise 90 Abduction 11 Comments AAROM abd and SLR Knee Goniometric Range of Motion Knee Left Flexion Active (degrees) 112 Extension Active (degrees) 0 PT-OP-M Strength Start: 07/05/21 15:54 Freq: Status: Active Protocol: Document 09/06/21 13:48 [facility] (Rec: 09/06/21 18:37 [facility] [id number]) Hip Strength Hip Manual Muscle Testing Left Flexion (L2) 3+ Fair+ Extension (S1) 3 Fair Abduction 3 Fair Adduction 3+ Fair+ External Rotation 3+ Fair+ Internal Rotation 3- Fair- Right Flexion (L2) 4+ Good+ Extension (S1) 3+ Fair+ Abduction 4- Good- Adduction 4 Good External Rotation 5 Normal Internal Rotation 5 Normal Knee Strength Knee Manual Muscle Testing Right Flexion (S2) 5 Normal Extension (L3) 5 Normal Left Flexion (S2) 4+ Good+ Extension (L3) 3+ Fair+ Ankle/Foot Strength Ankle and Foot Manual Muscle Testing Right Dorsiflexion (L4) 5 Normal Plantarflexion (S1) 5 Normal Left Dorsiflexion (L4) 5 Normal Plantarflexion (S1) 5 Normal Comments PF tested seated PT-OP-Q Treatments Start: 07/05/21 15:54 Freq: Status: Active Protocol: Document 09/21/21 13:00 [facility] (Rec: 09/21/21 18:32 [facility] [id number]) Gym Equipment Shuttle Recovery Bilateral Squats Details pt does get click and occ clunk-improved w/PT tib IR Resistance 50lb Shuttle Recovery Platform Stable Reps/Time 20 Therapeutic Exercises Supine Exercises QS/GS Supine Exercise Name quad set w/cues to lift foot off bottom foam roll & keep thigh on top Side left Reps/Minutes 10 sec x15 Comments quad sets down in long sit and supien w/PT restance also Manual Therapy Treatment Soft Tissue Mobilization quad Body Location L lat border lateralis & patellar tendon Mobilization Type Myofascial Release,Rolling, Strumming Intensity/Depth Moderate Body Position Supine Joint Mobilizations tibiofemoral Joint AP on femur FM and IR of tibia FM hip Joint L Direction on axis IR FM & inf FM Body Position Supine Patellofemoral Joint L Direction sup, inf, med Grade III Neuro Re-Education Treatment Other Activities PNF Comments 1. ant elevation L rhythmic initation progressed to sustained holds 2. ant dep of scap L sustained hold working on irradiation to L ant elevation Self-Care/Home Management Treatment Education Other Education encouraged pt to hold off on treadmill and walk more on flat gorund w/crutches and ellipical may be too much right now. Activities Self-Care/Home Management Activities attempted stim but did not work PT-OP-S Aquatic Treatment Start: 08/26/21 14:30 Freq: Status: Active Protocol: Document 09/09/21 14:52 LJ (Rec: 09/09/21 15:04 [id number]) Aquatics Treatment Pool Entry/Exit Pool Entry/Exit Method Lift Assistance Standby Assistance Water Walking [place] Water Level Chest Level Monster Walk Water Level Chest Level Lunge Walk Water Level Waist Level [place] Water Level Chest Level Marching Water Level Chest Level Comments emphasize toes forward Sideways Water Level Chest Level Comments emphasize toes forward Backwards Water Level Chest Level Forwards Water Level Chest Level Lower Extremity Exercises hip hike Water Level Waist Level Reps/Duration 15 B HS curl Body Position Standing Water Level Chest Level Reps/Duration 15 x 2 B seated knee fl/ext Body Position Sitting Water Level Neck Level Reps/Duration 15 x 2 B hip f/e;ab/ad;circles Details hh on wall Body Position Standing Water Level Chest Level Reps/Duration 10 B Lower Extremity Stretches gastroc, HS, soleus Details assisted Body Position Standing Water Level Waist Level Reps/Duration 2 x 45' LLE Comments noodle under ankle TFL Details at wall Body Position Standing Water Level Chest Level Reps/Duration 2 x 30' B Comments LLE quads, hip flexors Details at wall Body Position Standing Water Level Waist Level Reps/Duration 2 x 45' B Comments noodle under ankle-quad stretch Spinal Exercises seated wonder board Reps/Duration 5 min Comments pulling forward, hand out of water B, pelvic tilts all ways [place] Activities [place] Activities Bicycle,Bicycle Backwards, Cross Country,Running,Sit Kicks Other Activities Deep kicks at wall DLS Equipment belt Duration 15 PT-OP-T Assessment and Plan Start: 07/05/21 15:54 Freq: Status: Active Protocol: Document 09/21/21 13:00 [facility] (Rec: 09/21/21 18:32 [facility] [id number]) Physical Therapy Assessment Goals ambulation Short Term Goal (STG) Pt will be able to amb short distances w/o AD w/good gait mechanics STG Duration 10/29/21 Storyboard Artist Goal (LTG) Pt will be able to amb 2 miles without AD w/o inc pian greater than 2/10. LTG Duration 12/07/21 Three Impairment Decreased function per LEFS score of 17 Impairment LEFS score of 17 indicates 60- 79% impaired. Short Term Goal (STG) Improve function per LEFS score of no less than 32 (40- 59% impaired) 09/06-n/t STG Duration 10/07/21 Storyboard Artist Goal (LTG) Improve function per LEFS score no less than 63 (1-19% impaired). LTG Duration 12/02/21 Two Impairment Not able to ambulate without use of assistive device Impairment Gait 76' with FWW/NWBing LLE prior to fatigue. Short Term Goal (STG) Pt will be able to ambulate 100' with FWW with use of an assistive device and greater WBing of LLE when cleared for partial WBing of LLE. 08/23/21: progressinft maintaining PWB 20% of BW w/ FWW, step to gait. STG Duration achieved 09/06 Storyboard Artist Goal (LTG) Pt will be able to tolerate no less than 100' gait without use of assistive device when cleared for full WBing of LLE. 08/23/21: progressing 155ft maintaining PWB 20% of BW w/ FWW, step to gait. LTG Duration achieved 09/06 One Impairment Lacks appropriate self care HEP Short Term Goal (STG) Pt will be independent in a self care HEP to promote ongoing L knee/hip strengthening/ROM and core stabilization. 09/06-advancinga s able STG Duration 10/07 Storyboard Artist Goal (LTG) Pt will have at least 4+/5 LE MMT in all planes B to show improved stability of hip and knee to improve ability to mobilize int he community LTG Duration 12/07 Assessment Summary Assessment Attempted swedish stim but could not get pt to contract quads vs just pain so abandoned. She did get a better quad activation w/thigh and ankle supported by 1/2 foam and asking pt to lift foot w/o lifting thigh. Pt got quad set contraction. Dec feeling of any movement at patellar tendon with quad activiation but mild movement of patellar tendon noted w/ this activity. Physical Therapy Plan Frequency and Duration Frequency of Treatment 2x/Week Duration of Treatment 3 months Plan of Care Start Date 09/06/21 Plan of Care End Date 12/07/21 Next Visit Focus/Plan Next Note Type Treatment Note Next Visit Plan PNF post and ant dep to work on pelvic stability & hip mobility; cont to work on quad engagment
--- NOTE | 2021-09-26 17:26 | PT.OTN ---
Current Diagnoses Stiffness of right knee, not elsewhere classified (09/26/21) Muscle weakness (generalized) (09/26/21) Unsteadiness on feet (09/26/21) Fall on same level, unspecified, initial encounter (09/26/21) Presence of unspecified artificial knee joint (09/26/21) Physical Therapy Treatment Note PT-OP-A Visit Information Start: 07/05/21 15:54 Freq: Status: Active Protocol: Document 09/26/21 17:26 [facility] (Rec: 09/27/21 17:21 [facility] [id number]) Out-Patient Physical Therapy Visit Information Visit Information Visit Type Aquatic Treatment Note Visit Note 11/08 Visit Start Time 10:15 Visit Stop Time 11:00 Total Visit Minutes 45 Visit Number 16 Number of LENS POLISHER Visits 0 PT-OP-B Current Condition Start: 07/05/21 15:54 Freq: Status: Active Protocol: Document 07/11/21 15:06 LRN (Rec: 07/11/21 18:30 LRN [id number]) Current Condition History of Current Condition Onset Date 06/28/21 Current Complaints L History of Current Condition Slipper on ice landing on R hip with L leg behind resulting in L distal femur fracture. Pt is 11 days s/p ORIF 06/30/21. PRECAUTIONS: TTWB LLE, knee imimobilizer for comfort, ROM as tolerated L knee. Pt has been doing a HEP (QS, GS, heel slides, assisted hip AB) 2x/day. Pt denies pain except in neck at nighttime during sleep. PMH: Cori TKA, R forefoot fusion, fx R wrist. Prior Treatments and Tests HEP issued post-op. Future Testing and Treatments Planned Pt surgical follow up in 2 days. Treatment Goals Patient/Caregiver Goals Pt goal is to be able to get up and walk when she wants. Pt is agreeable to goal of walkling without the use of an assistive device. Prior Functional Status Baseline Function- ADL's Independent Baseline Function- Mobility Independent Baseline Function- Gait Independent w/o assistive device Baseline Function- Recreation/Hobbies Walked 1.5 miles daily. Hiked with walking pole. Current Functional Impairments (Reported) Functional Limitations- ADL's Wheelchair and walker bound with TTWBing LLE for gait using FWW. Functional Limitations- Mobility/Gait Walked 68' prior to fatigue from UE's. Functional Limitations- Recreation/ Returning to exercise gym for Hobbies neck/shoulder/upper body exercise. Personal Factors Other Personal Factors That May Effect Lives in [place], spouse Therapy/Recovery Marycruz Gary is physical therapy patient at same clinic . Cori TKA, L forefoot fused, herniated disc with discectomy ?L4-L5. Osteopenia. PT-OP-C Subjective Start: 07/05/21 15:54 Freq: Status: Active Protocol: Document 09/26/21 17:26 [facility] (Rec: 09/27/21 17:21 [facility] [id number]) OP-PT Subjective Patient Comments Patient Comments Patient reports biggest difficulty with weakness at knee, not able to hold her. Likes aquatic exercise as able to work on gait without assistive device and balance without fear of falling. PT-OP-G Mobility & Gait Start: 07/05/21 15:54 Freq: Status: Active Protocol: Document 07/11/21 15:06 LRN (Rec: 07/11/21 18:30 LRN [id number]) OP Mobility Evaluation Bed Mobility Supine to and from Sit Independent Transfers Sit to Stand Independent with FWW Bed to Chair Transfers Independent with FWW Car Transfers Independent Wheelchair Management Type of Wheelchair Normal Assessment Details Pt able to self propel and maneuver forward, backward and turn around independently. OP Gait Assessment Gait Gait Assistance Required: Independent Distance (Feet) 76 Able to Maintain Weight Bearing Status No During Gait Assistive Devices Assistive Device Front Wheeled Walker Gait Deviations General Gait Pattern Step-to Gait Comments Gait Comments Pt is TTWB LLE. PT-OP-K Range of Motion Start: 07/05/21 15:54 Freq: Status: Active Protocol: Document 09/06/21 13:48 [facility] (Rec: 09/06/21 18:37 [facility] [id number]) Hip Goniometric Range of Motion Hip Right Active Flexion w/Knee Flexed 122 Straight Leg Raise 90 Abduction 32 Left Active Flexion w/Knee Flexed 116 Straight Leg Raise 90 Abduction 11 Comments AAROM abd and SLR Knee Goniometric Range of Motion Knee Left Flexion Active (degrees) 112 Extension Active (degrees) 0 PT-OP-M Strength Start: 07/05/21 15:54 Freq: Status: Active Protocol: Document 09/06/21 13:48 [facility] (Rec: 09/06/21 18:37 [facility] [id number]) Hip Strength Hip Manual Muscle Testing Left Flexion (L2) 3+ Fair+ Extension (S1) 3 Fair Abduction 3 Fair Adduction 3+ Fair+ External Rotation 3+ Fair+ Internal Rotation 3- Fair- Right Flexion (L2) 4+ Good+ Extension (S1) 3+ Fair+ Abduction 4- Good- Adduction 4 Good External Rotation 5 Normal Internal Rotation 5 Normal Knee Strength Knee Manual Muscle Testing Right Flexion (S2) 5 Normal Extension (L3) 5 Normal Left Flexion (S2) 4+ Good+ Extension (L3) 3+ Fair+ Ankle/Foot Strength Ankle and Foot Manual Muscle Testing Right Dorsiflexion (L4) 5 Normal Plantarflexion (S1) 5 Normal Left Dorsiflexion (L4) 5 Normal Plantarflexion (S1) 5 Normal Comments PF tested seated PT-OP-Q Treatments Start: 07/05/21 15:54 Freq: Status: Active Protocol: Document 09/21/21 13:00 [facility] (Rec: 09/21/21 18:32 [facility] [id number]) Gym Equipment Shuttle Recovery Bilateral Squats Details pt does get click and occ clunk-improved w/PT tib IR Resistance 50lb Shuttle Recovery Platform Stable Reps/Time 20 Therapeutic Exercises Supine Exercises QS/GS Supine Exercise Name quad set w/cues to lift foot off bottom foam roll & keep thigh on top Side left Reps/Minutes 10 sec x15 Comments quad sets down in long sit and supien w/PT restance also Manual Therapy Treatment Soft Tissue Mobilization quad Body Location L lat border lateralis & patellar tendon Mobilization Type Myofascial Release,Rolling, Strumming Intensity/Depth Moderate Body Position Supine Joint Mobilizations tibiofemoral Joint AP on femur FM and IR of tibia FM hip Joint L Direction on axis IR FM & inf FM Body Position Supine Patellofemoral Joint L Direction sup, inf, med Grade III Neuro Re-Education Treatment Other Activities PNF Comments 1. ant elevation L rhythmic initation progressed to sustained holds 2. ant dep of scap L sustained hold working on irradiation to L ant elevation Self-Care/Home Management Treatment Education Other Education encouraged pt to hold off on treadmill and walk more on flat gorund w/crutches and ellipical may be too much right now. Activities Self-Care/Home Management Activities attempted stim but did not work PT-OP-S Aquatic Treatment Start: 08/26/21 14:30 Freq: Status: Active Protocol: Document 09/26/21 17:[address] [facility] (Rec: 09/27/21 17:[address] [facility] [id number]) Aquatics Treatment Pool Entry/Exit Pool Entry/Exit Method Lift Assistance Standby Assistance Water Walking step-overs Water Level Chest Level Comments fwd and back, 8 boxes step-ups Water Level Chest Level Comments 10x, 8 boxes Monster Walk Water Level Chest Level Comments 1# ankle weight Lunge Walk Water Level Waist Level [place] Water Level Chest Level Comments 1# ankle weight [place]wards Water Level Chest Level Comments 1# ankle weight Lower Extremity Exercises seated knee fl/ext Body Position Sitting Water Level Neck Level Equipment 1# weight Reps/Duration 10x2 Balance SLS Reps/Duration 2x30 cori [place] Activities [place] Activities Bicycle,Bicycle Backwards, Cross [place],Running,Sit Kicks Equipment flotation belt, 1# ankle weight Duration 15 min PT-OP-T Assessment and Plan Start: 07/05/21 15:54 Freq: Status: Active Protocol: Document 09/26/21 17:[address] [facility] (Rec: 09/27/21 17:[address] [facility] [id number]) Physical Therapy Assessment Rehab Potential Rehabilitation Potential Excellent Evaluation Complexity Number of Personal Factors/Comorbidities 3 or More Number of Body Systems Impaired 4 or More Clinical Presentation at Evaluation Evolving Impairments Impairments Activity Tolerance,Functional Activities,Functional Mobility ,Gait,ROM,Soft Tissue Mobility ,Strength Goals ambulation Short Term Goal (STG) Pt will be able to amb short distances w/o AD w/good gait mechanics STG Duration 10/29/21 Preforming Machine Operator Goal (LTG) Pt will be able to amb 2 miles without AD w/o inc pian greater than 2/10. LTG Duration 12/07/21 Three Impairment Decreased function per LEFS score of 17 Impairment LEFS score of 17 indicates 60- 79% impaired. Short Term Goal (STG) Improve function per LEFS score of no less than 32 (40- 59% impaired) 09/06-n/t STG Duration 10/07/21 Preforming Machine Operator Goal (LTG) Improve function per LEFS score no less than 63 (1-19% impaired). LTG Duration 12/02/21 Two Impairment Not able to ambulate without use of assistive device Impairment Gait 76' with FWW/NWBing LLE prior to fatigue. Short Term Goal (STG) Pt will be able to ambulate 100' with FWW with use of an assistive device and greater WBing of LLE when cleared for partial WBing of LLE. 08/23/21: progressinft maintaining PWB 20% of BW w/ FWW, step to gait. STG Duration achieved 09/06 Preforming Machine Operator Goal (LTG) Pt will be able to tolerate no less than 100' gait without use of assistive device when cleared for full WBing of LLE. 08/23/21: progressing 155ft maintaining PWB 20% of BW w/ FWW, step to gait. LTG Duration achieved 38 One Impairment Lacks appropriate self care HEP Short Term Goal (STG) Pt will be independent in a self care HEP to promote ongoing L knee/hip strengthening/ROM and core stabilization. 09/06-advancinga s able STG Duration 10/07 Preforming Machine Operator Goal (LTG) Pt will have at least 4+/5 LE MMT in all planes B to show improved stability of hip and knee to improve ability to mobilize int he community LTG Duration 12/07 Assessment Summary Assessment Patient able to achieve full knee extension at chest level on step-ups, and hold extension with 1# ankle weight with chest level soldier marching and LAQ ( assist of [place]). Step-ups and step- overs and use of 1# ankle weight added to patient's current aquatic exercise program. Denied pain with aquatic ex today. Physical Therapy Plan Frequency and Duration Frequency of Treatment 2x/Week Duration of Treatment 3 months Plan of Care Start Date 09/06/21 Plan of Care End Date 12/07/21 Therapeutic Interventions Therapeutic Interventions Aquatic Therapy,Balance Training,Gait Training,Home Exercise Program,Joint Mobilizations,Manual Therapy, Neuromuscular Re-education, Patient/Caregiver Education, Self-Care/Home Management,Soft Tissue Mobilization,Taping, Therapeutic Activities, Therapeutic Exercises Modalities Cold Pack/Ice Massage,Electric Stimulation,Hot Packs, Ultrasound Next Visit Focus/Plan Next Note Type Treatment Note Next Visit Plan Clinic: PNF post and ant dep to work on pelvic stability & hip mobility; cont to work on quad engagment Aquatic: continue gait training, strengthening quads and hips, balance, emphasis on core stab with all.
--- NOTE | 2021-09-26 17:28 | PT.OTN ---
Current Diagnoses Stiffness of right knee, not elsewhere classified (09/26/21) Muscle weakness (generalized) (09/26/21) Unsteadiness on feet (09/26/21) Fall on same level, unspecified, initial encounter (09/26/21) Presence of unspecified artificial knee joint (09/26/21) Physical Therapy Treatment Note PT-OP-A Visit Information Start: 07/05/21 15:54 Freq: Status: Active Protocol: Document 09/26/21 17:26 SAK (Rec: 09/27/21 17:21 SAK [id number]) Out-Patient Physical Therapy Visit Information Visit Information Visit Type Aquatic Treatment Note Visit Note 11/08 Visit Start Time 10:15 Visit Stop Time 11:00 Total Visit Minutes 45 Visit Number 16 Number of PAINTER SPRAY Visits 0 PT-OP-B Current Condition Start: 07/05/21 15:54 Freq: Status: Active Protocol: Document 07/11/21 15:06 LRN (Rec: 07/11/21 18:30 LRN [id number]) Current Condition History of Current Condition Onset Date 06/28/21 Current Complaints L History of Current Condition Slipper on ice landing on R hip with L leg behind resulting in L distal femur fracture. Pt is 11 days s/p ORIF 06/30/21. PRECAUTIONS: TTWB LLE, knee imimobilizer for comfort, ROM as tolerated L knee. Pt has been doing a HEP (QS, GS, heel slides, assisted hip AB) 2x/day. Pt denies pain except in neck at nighttime during sleep. PMH: Cori TKA, R forefoot fusion, fx R wrist. Prior Treatments and Tests HEP issued post-op. Future Testing and Treatments Planned Pt surgical follow up in 2 days. Treatment Goals Patient/Caregiver Goals Pt goal is to be able to get up and walk when she wants. Pt is agreeable to goal of walkling without the use of an assistive device. Prior Functional Status Baseline Function- ADL's Independent Baseline Function- Mobility Independent Baseline Function- Gait Independent w/o assistive device Baseline Function- Recreation/Hobbies Walked 1.5 miles daily. Hiked with walking pole. Current Functional Impairments (Reported) Functional Limitations- ADL's Wheelchair and walker bound with TTWBing LLE for gait using FWW. Functional Limitations- Mobility/Gait Walked 68' prior to fatigue from UE's. Functional Limitations- Recreation/ Returning to exercise gym for Hobbies neck/shoulder/upper body exercise. Personal Factors Other Personal Factors That May Effect Lives in [place], spouse Therapy/Recovery Marycruz Gary is physical therapy patient at same clinic . Cori TKA, L forefoot fused, herniated disc with discectomy ?L4-L5. Osteopenia. PT-OP-C Subjective Start: 07/05/21 15:54 Freq: Status: Active Protocol: Document 09/26/21 17:26 SAK (Rec: 09/27/21 17:21 SAK [id number]) OP-PT Subjective Patient Comments Patient Comments Patient reports biggest difficulty with weakness at knee, not able to hold her. Likes aquatic exercise as able to work on gait without assistive device and balance without fear of falling. PT-OP-G Mobility & Gait Start: 07/05/21 15:54 Freq: Status: Active Protocol: Document 07/11/21 15:06 LRN (Rec: 07/11/21 18:30 LRN [id number]) OP Mobility Evaluation Bed Mobility Supine to and from Sit Independent Transfers Sit to Stand Independent with FWW Bed to Chair Transfers Independent with FWW Car Transfers Independent Wheelchair Management Type of Wheelchair Normal Assessment Details Pt able to self propel and maneuver forward, backward and turn around independently. OP Gait Assessment Gait Gait Assistance Required: Independent Distance (Feet) 76 Able to Maintain Weight Bearing Status No During Gait Assistive Devices Assistive Device Front Wheeled Walker Gait Deviations General Gait Pattern Step-to Gait Comments Gait Comments Pt is TTWB LLE. PT-OP-K Range of Motion Start: 07/05/21 15:54 Freq: Status: Active Protocol: Document 09/06/21 13:48 [facility] (Rec: 09/06/21 18:37 [facility] [id number]) Hip Goniometric Range of Motion Hip Right Active Flexion w/Knee Flexed 122 Straight Leg Raise 90 Abduction 32 Left Active Flexion w/Knee Flexed 116 Straight Leg Raise 90 Abduction 11 Comments AAROM abd and SLR Knee Goniometric Range of Motion Knee Left Flexion Active (degrees) 112 Extension Active (degrees) 0 PT-OP-M Strength Start: 07/05/21 15:54 Freq: Status: Active Protocol: Document 09/06/21 13:48 [facility] (Rec: 09/06/21 18:37 [facility] [id number]) Hip Strength Hip Manual Muscle Testing Left Flexion (L2) 3+ Fair+ Extension (S1) 3 Fair Abduction 3 Fair Adduction 3+ Fair+ External Rotation 3+ Fair+ Internal Rotation 3- Fair- Right Flexion (L2) 4+ Good+ Extension (S1) 3+ Fair+ Abduction 4- Good- Adduction 4 Good External Rotation 5 Normal Internal Rotation 5 Normal Knee Strength Knee Manual Muscle Testing Right Flexion (S2) 5 Normal Extension (L3) 5 Normal Left Flexion (S2) 4+ Good+ Extension (L3) 3+ Fair+ Ankle/Foot Strength Ankle and Foot Manual Muscle Testing Right Dorsiflexion (L4) 5 Normal Plantarflexion (S1) 5 Normal Left Dorsiflexion (L4) 5 Normal Plantarflexion (S1) 5 Normal Comments PF tested seated PT-OP-Q Treatments Start: 07/05/21 15:54 Freq: Status: Active Protocol: Document 09/21/21 13:00 [facility] (Rec: 09/21/21 18:32 [facility] [id number]) Gym Equipment Shuttle Recovery Bilateral Squats Details pt does get click and occ clunk-improved w/PT tib IR Resistance 50lb Shuttle Recovery Platform Stable Reps/Time 20 Therapeutic Exercises Supine Exercises QS/GS Supine Exercise Name quad set w/cues to lift foot off bottom foam roll & keep thigh on top Side left Reps/Minutes 10 sec x15 Comments quad sets down in long sit and supien w/PT restance also Manual Therapy Treatment Soft Tissue Mobilization quad Body Location L lat border lateralis & patellar tendon Mobilization Type Myofascial Release,Rolling, Strumming Intensity/Depth Moderate Body Position Supine Joint Mobilizations tibiofemoral Joint AP on femur FM and IR of tibia FM hip Joint L Direction on axis IR FM & inf FM Body Position Supine Patellofemoral Joint L Direction sup, inf, med Grade III Neuro Re-Education Treatment Other Activities PNF Comments 1. ant elevation L rhythmic initation progressed to sustained holds 2. ant dep of scap L sustained hold working on irradiation to L ant elevation Self-Care/Home Management Treatment Education Other Education encouraged pt to hold off on treadmill and walk more on flat gorund w/crutches and ellipical may be too much right now. Activities Self-Care/Home Management Activities attempted stim but did not work PT-OP-S Aquatic Treatment Start: 08/26/21 14:30 Freq: Status: Active Protocol: Document 09/26/21 17:26 [facility] (Rec: 09/27/21 17:21 [facility] [id number]) Aquatics Treatment Pool Entry/Exit Pool Entry/Exit Method Lift Assistance Standby Assistance Water Walking step-overs Water Level Chest Level Comments fwd and back, 8 boxes step-ups Water Level Chest Level Comments 10x, 8 boxes Monster Walk Water Level Chest Level Comments 1# ankle weight Lunge Walk Water Level Waist Level [place] Water Level Chest Level Comments 1# ankle weight Forwards Water Level Chest Level Comments 1# ankle weight Lower Extremity Exercises seated knee fl/ext Body Position Sitting Water Level Neck Level Equipment 1# weight Reps/Duration 10x2 Balance SLS Reps/Duration 2x30 cori [place] Activities [place] Activities Bicycle,Bicycle Backwards, Cross [place],Running,Sit Kicks Equipment flotation belt, 1# ankle weight Duration 15 min PT-OP-T Assessment and Plan Start: 07/05/21 15:54 Freq: Status: Active Protocol: Document 09/26/21 17:26 [facility] (Rec: 09/27/21 17:21 [facility] [id number]) Physical Therapy Assessment Rehab Potential Rehabilitation Potential Excellent Evaluation Complexity Number of Personal Factors/Comorbidities 3 or More Number of Body Systems Impaired 4 or More Clinical Presentation at Evaluation Evolving Impairments Impairments Activity Tolerance,Functional Activities,Functional Mobility ,Gait,ROM,Soft Tissue Mobility ,Strength Goals ambulation Short Term Goal (STG) Pt will be able to amb short distances w/o AD w/good gait mechanics STG Duration 10/29/21 Elevator Examiner Goal (LTG) Pt will be able to amb 2 miles without AD w/o inc pian greater than 2/10. LTG Duration 12/07/21 Three Impairment Decreased function per LEFS score of 17 Impairment LEFS score of 17 indicates 60- 79% impaired. Short Term Goal (STG) Improve function per LEFS score of no less than 32 (40- 59% impaired) 09/06-n/t STG Duration 10/07/21 Elevator Examiner Goal (LTG) Improve function per LEFS score no less than 63 (1-19% impaired). LTG Duration 12/02/21 Two Impairment Not able to ambulate without use of assistive device Impairment Gait 76' with FWW/NWBing LLE prior to fatigue. Short Term Goal (STG) Pt will be able to ambulate 100' with FWW with use of an assistive device and greater WBing of LLE when cleared for partial WBing of LLE. 08/23/21: progressinft maintaining PWB 20% of BW w/ FWW, step to gait. STG Duration achieved 09/06 Elevator Examiner Goal (LTG) Pt will be able to tolerate no less than 100' gait without use of assistive device when cleared for full WBing of LLE. 08/23/21: progressing 155ft maintaining PWB 20% of BW w/ FWW, step to gait. LTG Duration achieved 38 One Impairment Lacks appropriate self care HEP Short Term Goal (STG) Pt will be independent in a self care HEP to promote ongoing L knee/hip strengthening/ROM and core stabilization. 09/06-advancinga s able STG Duration 10/07 Elevator Examiner Goal (LTG) Pt will have at least 4+/5 LE MMT in all planes B to show improved stability of hip and knee to improve ability to mobilize int he community LTG Duration 12/07 Assessment Summary Assessment Patient able to achieve full knee extension at chest level on step-ups, and hold extension with 1# ankle weight with chest level soldier marching and LAQ ( assist of ARDACO). Step-ups and step- overs and use of 1# ankle weight added to patient's current aquatic exercise program. Denied pain with aquatic ex today. Physical Therapy Plan Frequency and Duration Frequency of Treatment 2x/Week Duration of Treatment 3 months Plan of Care Start Date 09/06/21 Plan of Care End Date 12/07/21 Therapeutic Interventions Therapeutic Interventions Aquatic Therapy,Balance Training,Gait Training,Home Exercise Program,Joint Mobilizations,Manual Therapy, Neuromuscular Re-education, Patient/Caregiver Education, Self-Care/Home Management,Soft Tissue Mobilization,Taping, Therapeutic Activities, Therapeutic Exercises Modalities Cold Pack/Ice Massage,Electric Stimulation,Hot Packs, Ultrasound Next Visit Focus/Plan Next Note Type Treatment Note Next Visit Plan Clinic: PNF post and ant dep to work on pelvic stability & hip mobility; cont to work on quad engagment Aquatic: continue gait training, strengthening quads and hips, balance, emphasis on core stab with all.
--- NOTE | 2021-09-28 16:07 | PT.OTN ---
Current Diagnoses Stiffness of right knee, not elsewhere classified (09/28/21) Muscle weakness (generalized) (09/28/21) Unsteadiness on feet (09/28/21) Fall on same level, unspecified, initial encounter (09/28/21) Presence of unspecified artificial knee joint (09/28/21) Physical Therapy Treatment Note PT-OP-A Visit Information Start: 07/05/21 15:54 Freq: Status: Active Protocol: Document 09/28/21 15:23 [facility] (Rec: 09/28/21 16:07 [facility] [id number]) Out-Patient Physical Therapy Visit Information Visit Information Visit Type Treatment Note Visit Note 12/09 Visit Start Time 15:21 Visit Stop Time 16:00 Total Visit Minutes 39 Visit Number 17 Number of MARBLE POLISHER Visits 0 PT-OP-B Current Condition Start: 07/05/21 15:54 Freq: Status: Active Protocol: Document 07/11/21 15:06 LRN (Rec: 07/11/21 18:30 LRN [id number]) Current Condition History of Current Condition Onset Date 06/28/21 Current Complaints L History of Current Condition Slipper on ice landing on R hip with L leg behind resulting in L distal femur fracture. Pt is 11 days s/p ORIF 06/30/21. PRECAUTIONS: TTWB LLE, knee imimobilizer for comfort, ROM as tolerated L knee. Pt has been doing a HEP (QS, GS, heel slides, assisted hip AB) 2x/day. Pt denies pain except in neck at nighttime during sleep. PMH: Tiburcio TKA, R forefoot fusion, fx R wrist. Prior Treatments and Tests HEP issued post-op. Future Testing and Treatments Planned Pt surgical follow up in 2 days. Treatment Goals Patient/Caregiver Goals Pt goal is to be able to get up and walk when she wants. Pt is agreeable to goal of walkling without the use of an assistive device. Prior Functional Status Baseline Function- ADL's Independent Baseline Function- Mobility Independent Baseline Function- Gait Independent w/o assistive device Baseline Function- Recreation/Hobbies Walked 1.5 miles daily. Hiked with walking pole. Current Functional Impairments (Reported) Functional Limitations- ADL's Wheelchair and walker bound with TTWBing LLE for gait using FWW. Functional Limitations- Mobility/Gait Walked 68' prior to fatigue from UE's. Functional Limitations- Recreation/ Returning to exercise gym for Hobbies neck/shoulder/upper body exercise. Personal Factors Other Personal Factors That May Effect Lives in [place], spouse Therapy/Recovery Marycruz Vega is physical therapy patient at same clinic . Tiburcio TKA, L forefoot fused, herniated disc with discectomy ?L4-L5. Osteopenia. PT-OP-C Subjective Start: 07/05/21 15:54 Freq: Status: Active Protocol: Document 09/28/21 15:23 [facility] (Rec: 09/28/21 16:07 [facility] [id number]) OP-PT Subjective Patient Comments Patient Comments planted in garden yesterday and notes she is having apin mostly only when she is on her LLE a lot. Still feels uneven at pelvis PT-OP-G Mobility & Gait Start: 07/05/21 15:54 Freq: Status: Active Protocol: Document 07/11/21 15:06 LR (Rec: 07/11/21 18:30 [facility] [id number]) OP Mobility Evaluation Bed Mobility Supine to and from Sit Independent Transfers Sit to Stand Independent with FWW Bed to Chair Transfers Independent with FWW Car Transfers Independent Wheelchair Management Type of Wheelchair Normal Assessment Details Pt able to self propel and maneuver forward, backward and turn around independently. OP Gait Assessment Gait Gait Assistance Required: Independent Distance (Feet) 76 Able to Maintain Weight Bearing Status No During Gait Assistive Devices Assistive Device Front Wheeled Walker Gait Deviations General Gait Pattern Step-to Gait Comments Gait Comments Pt is TTWB LLE. PT-OP-K Range of Motion Start: 07/05/21 15:54 Freq: Status: Active Protocol: Document 09/06/21 13:48 [facility] (Rec: 09/06/21 18:37 [facility] [id number]) Hip Goniometric Range of Motion Hip Right Active Flexion w/Knee Flexed 122 Straight Leg Raise 90 Abduction 32 Left Active Flexion w/Knee Flexed 116 Straight Leg Raise 90 Abduction 11 Comments AAROM abd and SLR Knee Goniometric Range of Motion Knee Left Flexion Active (degrees) 112 Extension Active (degrees) 0 PT-OP-M Strength Start: 07/05/21 15:54 Freq: Status: Active Protocol: Document 09/06/21 13:48 [facility] (Rec: 09/06/21 18:37 [facility] [id number]) Hip Strength Hip Manual Muscle Testing Left Flexion (L2) 3+ Fair+ Extension (S1) 3 Fair Abduction 3 Fair Adduction 3+ Fair+ External Rotation 3+ Fair+ Internal Rotation 3- Fair- Right Flexion (L2) 4+ Good+ Extension (S1) 3+ Fair+ Abduction 4- Good- Adduction 4 Good External Rotation 5 Normal Internal Rotation 5 Normal Knee Strength Knee Manual Muscle Testing Right Flexion (S2) 5 Normal Extension (L3) 5 Normal Left Flexion (S2) 4+ Good+ Extension (L3) 3+ Fair+ Ankle/Foot Strength Ankle and Foot Manual Muscle Testing Right Dorsiflexion (L4) 5 Normal Plantarflexion (S1) 5 Normal Left Dorsiflexion (L4) 5 Normal Plantarflexion (S1) 5 Normal Comments PF tested seated PT-OP-Q Treatments Start: 07/05/21 15:54 Freq: Status: Active Protocol: Document 09/28/21 15:23 [facility] (Rec: 09/28/21 16:07 [facility] [id number]) Therapeutic Exercises Supine Exercises QS/GS Side left Reps/Minutes 10 sec x6 Comments quad sets down in long sit and supien w/PT restance also Manual Therapy Treatment Soft Tissue Mobilization QL Body Location L QL & ant and lat over iliac crest Mobilization Type Myofascial Release,Strumming, Sustained Pressure Intensity/Depth Moderate Body Position Sidelying Comments w/post dep FM quad Body Location L lat border lateralis & patellar tendon Mobilization Type Myofascial Release,Rolling, Strumming Intensity/Depth Moderate Body Position Supine scar mob Body Location L lat scar Mobilization Type Myofascial Release,Rolling Intensity/Depth Moderate Body Position Hooklying Comments manual Joint Mobilizations innominate Joint R Direction flex FM hip Joint R Direction inf FM Patellofemoral Joint L Direction sup, inf, med Grade III Neuro Re-Education Treatment Other Activities PNF Comments 1. post depression sustained holds progressed to w/LE holds PT-OP-S Aquatic Treatment Start: 08/26/21 14:30 Freq: Status: Active Protocol: Document 09/26/21 17:26 [facility] (Rec: 09/27/21 17:21 [facility] [id number]) Aquatics Treatment Pool Entry/Exit Pool Entry/Exit Method Lift Assistance Standby Assistance Water Walking step-overs Water Level Chest Level Comments fwd and back, 8 boxes step-ups Water Level Chest Level Comments 10x, 8 boxes Monster Walk Water Level Chest Level Comments 1# ankle weight Lunge Walk Water Level Waist Level [place] Water Level Chest Level Comments 1# ankle weight Forwards Water Level Chest Level Comments 1# ankle weight Lower Extremity Exercises seated knee fl/ext Body Position Sitting Water Level Neck Level Equipment 1# weight Reps/Duration 10x2 Balance SLS Reps/Duration 2x30 tiburcio [place] Activities [place] Activities Bicycle,Bicycle Backwards, Cross [place],Running,Sit Kicks Equipment flotation belt, 1# ankle weight Duration 15 min PT-OP-T Assessment and Plan Start: 07/05/21 15:54 Freq: Status: Active Protocol: Document 09/28/21 15:23 [facility] (Rec: 09/28/21 16:07 [facility] [id number]) Physical Therapy Assessment Goals ambulation Short Term Goal (STG) Pt will be able to amb short distances w/o AD w/good gait mechanics STG Duration 10/29/[address] Justice Goal (LTG) Pt will be able to amb 2 miles without AD w/o inc pian greater than 2/10. LTG Duration 12/07/21 Three Impairment Decreased function per LEFS score of 17 Impairment LEFS score of 17 indicates 60- 79% impaired. Short Term Goal (STG) Improve function per LEFS score of no less than 32 (40- 59% impaired) 09/06-n/t STG Duration 10/07/[address] Justice Goal (LTG) Improve function per LEFS score no less than 63 (1-19% impaired). LTG Duration 12/02/21 Two Impairment Not able to ambulate without use of assistive device Impairment Gait 76' with FWW/NWBing LLE prior to fatigue. Short Term Goal (STG) Pt will be able to ambulate 100' with FWW with use of an assistive device and greater WBing of LLE when cleared for partial WBing of LLE. 08/23/21: progressinft maintaining PWB 20% of BW w/ FWW, step to gait. STG Duration achieved 09/06 Prison Goal (LTG) Pt will be able to tolerate no less than 100' gait without use of assistive device when cleared for full WBing of LLE. 08/23/21: progressing 155ft maintaining PWB 20% of BW w/ FWW, step to gait. LTG Duration achieved 09/06 One Impairment Lacks appropriate self care HEP Short Term Goal (STG) Pt will be independent in a self care HEP to promote ongoing L knee/hip strengthening/ROM and core stabilization. 09/06-advancinga s able STG Duration 10/07 Prison Goal (LTG) Pt will have at least 4+/5 LE MMT in all planes B to show improved stability of hip and knee to improve ability to mobilize int he community LTG Duration 12/07 Assessment Summary Assessment Pt is slowly improving w/ terminal quad engagment but still has ext lag w/leg lift. She still has a very shakey VMO engagment. Imporved pelvis position after manual on R to allow L pelvis into appropriate seated poistion.
--- NOTE | 2021-10-05 16:09 | PT.OTN ---
Current Diagnoses Stiffness of right knee, not elsewhere classified (10/05/21) Muscle weakness (generalized) (10/05/21) Unsteadiness on feet (10/05/21) Fall on same level, unspecified, initial encounter (10/05/21) Presence of unspecified artificial knee joint (10/05/21) Physical Therapy Treatment Note PT-OP-A Visit Information Start: 07/05/21 15:54 Freq: Status: Active Protocol: Document 10/05/21 13:00 [facility] (Rec: 10/05/21 16:09 [facility] [id number]) Out-Patient Physical Therapy Visit Information Visit Information Visit Type Treatment Note Visit Note 01/08 Visit Start Time 13:00 Visit Stop Time 13:45 Total Visit Minutes 45 Visit Number 18 Number of COMMERCIAL DESIGNER Visits 0 PT-OP-B Current Condition Start: 07/05/21 15:54 Freq: Status: Active Protocol: Document 07/11/21 15:06 [facility] (Rec: 07/11/21 18:30 [facility] [id number]) Current Condition History of Current Condition Onset Date 06/28/21 Current Complaints L History of Current Condition Slipper on ice landing on R hip with L leg behind resulting in L distal femur fracture. Pt is 11 days s/p ORIF 06/30/21. PRECAUTIONS: TTWB LLE, knee imimobilizer for comfort, ROM as tolerated L knee. Pt has been doing a HEP (QS, GS, heel slides, assisted hip AB) 2x/day. Pt denies pain except in neck at nighttime during sleep. PMH: Cori TKA, R forefoot fusion, fx R wrist. Prior Treatments and Tests HEP issued post-op. Future Testing and Treatments Planned Pt surgical follow up in 2 days. Treatment Goals Patient/Caregiver Goals Pt goal is to be able to get up and walk when she wants. Pt is agreeable to goal of walkling without the use of an assistive device. Prior Functional Status Baseline Function- ADL's Independent Baseline Function- Mobility Independent Baseline Function- Gait Independent w/o assistive device Baseline Function- Recreation/Hobbies Walked 1.5 miles daily. Hiked with walking pole. Current Functional Impairments (Reported) Functional Limitations- ADL's Wheelchair and walker bound with TTWBing LLE for gait using FWW. Functional Limitations- Mobility/Gait Walked 68' prior to fatigue from UE's. Functional Limitations- Recreation/ Returning to exercise gym for Hobbies neck/shoulder/upper body exercise. Personal Factors Other Personal Factors That May Effect Lives in [place], spouse Therapy/Recovery Marycruz Gary is physical therapy patient at same clinic . Cori TKA, L forefoot fused, herniated disc with discectomy ?L4-L5. Osteopenia. PT-OP-C Subjective Start: 07/05/21 15:54 Freq: Status: Active Protocol: Document 10/05/21 13:00 [facility] (Rec: 10/05/21 16:09 [facility] [id number]) OP-PT Subjective Patient Comments Patient Comments Pt reports using treking poles at gym today so L thigh was sore after. PT-OP-G Mobility & Gait Start: 07/05/21 15:54 Freq: Status: Active Protocol: Document 07/11/21 15:06 [facility] (Rec: 07/11/21 18:30 [facility] [id number]) OP Mobility Evaluation Bed Mobility Supine to and from Sit Independent Transfers Sit to Stand Independent with FWW Bed to Chair Transfers Independent with FWW Car Transfers Independent Wheelchair Management Type of Wheelchair Normal Assessment Details Pt able to self propel and maneuver forward, backward and turn around independently. OP Gait Assessment Gait Gait Assistance Required: Independent Distance (Feet) 76 Able to Maintain Weight Bearing Status No During Gait Assistive Devices Assistive Device Front Wheeled Walker Gait Deviations General Gait Pattern Step-to Gait Comments Gait Comments Pt is TTWB LLE. PT-OP-K Range of Motion Start: 07/05/21 15:54 Freq: Status: Active Protocol: Document 09/06/21 13:48 [facility] (Rec: 09/06/21 18:37 [facility] [id number]) Hip Goniometric Range of Motion Hip Right Active Flexion w/Knee Flexed 122 Straight Leg Raise 90 Abduction 32 Left Active Flexion w/Knee Flexed 116 Straight Leg Raise 90 Abduction 11 Comments AAROM abd and SLR Knee Goniometric Range of Motion Knee Left Flexion Active (degrees) 112 Extension Active (degrees) 0 PT-OP-M Strength Start: 07/05/21 15:54 Freq: Status: Active Protocol: Document 09/06/21 13:48 [facility] (Rec: 09/06/21 18:37 [facility] [id number]) Hip Strength Hip Manual Muscle Testing Left Flexion (L2) 3+ Fair+ Extension (S1) 3 Fair Abduction 3 Fair Adduction 3+ Fair+ External Rotation 3+ Fair+ Internal Rotation 3- Fair- Right Flexion (L2) 4+ Good+ Extension (S1) 3+ Fair+ Abduction 4- Good- Adduction 4 Good External Rotation 5 Normal Internal Rotation 5 Normal Knee Strength Knee Manual Muscle Testing Right Flexion (S2) 5 Normal Extension (L3) 5 Normal Left Flexion (S2) 4+ Good+ Extension (L3) 3+ Fair+ Ankle/Foot Strength Ankle and Foot Manual Muscle Testing Right Dorsiflexion (L4) 5 Normal Plantarflexion (S1) 5 Normal Left Dorsiflexion (L4) 5 Normal Plantarflexion (S1) 5 Normal Comments PF tested seated PT-OP-Q Treatments Start: 07/05/21 15:54 Freq: Status: Active Protocol: Document 10/05/21 13:00 [facility] (Rec: 10/05/21 16:09 [facility] [id number]) Therapeutic Exercises Standing Exercises hip hikes Side left Equipment Used on step max cues Reps/Minutes 2x10 hip ext Side bilateral Equipment Used l1 Reps/Minutes 8 Gait Training Gait Activity wt shifts Comments standing in mirror fwd wt shift into each LE w/focus on L knee straight x15 B gait Comments w/cane working on sequencing and full wt acceptance Manual Therapy Treatment Soft Tissue Mobilization QL Body Location L QL & ant and lat over iliac crest Mobilization Type Myofascial Release,Strumming, Sustained Pressure Intensity/Depth Moderate Body Position Sidelying Comments w/post dep FM quad Body Location L lat border lateralis & thigh circumfrential Mobilization Type Myofascial Release,Rolling, Strumming Intensity/Depth Moderate Body Position Supine Comments w/heel slides Neuro Re-Education Treatment Other Activities PNF Details L pelvis Comments 1. rhythmic iniation post dep 2.post depression sustained holds progressed to w/LE holds 3. mass elongation sustained holds L PT-OP-S Aquatic Treatment Start: 08/26/21 14:30 Freq: Status: Active Protocol: Document 09/26/21 17:26 [facility] (Rec: 09/27/21 17:21 [facility] [id number]) Aquatics Treatment Pool Entry/Exit Pool Entry/Exit Method Lift Assistance Standby Assistance Water Walking step-overs Water Level Chest Level Comments fwd and back, 8 boxes step-ups Water Level Chest Level Comments 10x, 8 boxes Monster Walk Water Level Chest Level Comments 1# ankle weight Lunge Walk Water Level Waist Level [place] Water Level Chest Level Comments 1# ankle weight Forwards Water Level Chest Level Comments 1# ankle weight Lower Extremity Exercises seated knee fl/ext Body Position Sitting Water Level Neck Level Equipment 1# weight Reps/Duration 10x2 Balance SLS Reps/Duration 2x30 cori [place] Activities [place] Activities Bicycle,Bicycle Backwards, [place],Running,Sit Kicks Equipment flotation belt, 1# ankle weight Duration 15 min PT-OP-T Assessment and Plan Start: 07/05/21 15:54 Freq: Status: Active Protocol: Document 10/05/21 13:00 [facility] (Rec: 10/05/21 16:09 [facility] [id number]) Physical Therapy Assessment Goals ambulation Short Term Goal (STG) Pt will be able to amb short distances w/o AD w/good gait mechanics STG Duration 10/29/21 Administrative Project Coordinator Goal (LTG) Pt will be able to amb 2 miles without AD w/o inc pian greater than 2/10. LTG Duration 12/07/21 Three Impairment Decreased function per LEFS score of 17 Impairment LEFS score of 17 indicates 60- 79% impaired. Short Term Goal (STG) Improve function per LEFS score of no less than 32 (40- 59% impaired) 09/06-n/t STG Duration 10/07/21 Administrative Project Coordinator Goal (LTG) Improve function per LEFS score no less than 63 (1-19% impaired). LTG Duration 12/02/21 Two Impairment Not able to ambulate without use of assistive device Impairment Gait 76' with FWW/NWBing LLE prior to fatigue. Short Term Goal (STG) Pt will be able to ambulate 100' with FWW with use of an assistive device and greater WBing of LLE when cleared for partial WBing of LLE. 08/23/21: progressinft maintaining PWB 20% of BW w/ FWW, step to gait. STG Duration achieved 09/06 Administrative Project Coordinator Goal (LTG) Pt will be able to tolerate no less than 100' gait without use of assistive device when cleared for full WBing of LLE. 08/23/21: progressing 155ft maintaining PWB 20% of BW w/ FWW, step to gait. LTG Duration achieved 09/06 One Impairment Lacks appropriate self care HEP Short Term Goal (STG) Pt will be independent in a self care HEP to promote ongoing L knee/hip strengthening/ROM and core stabilization. 09/06-advancinga s able STG Duration 10/07 Administrative Project Coordinator Goal (LTG) Pt will have at least 4+/5 LE MMT in all planes B to show improved stability of hip and knee to improve ability to mobilize int he community LTG Duration 12/07 Assessment Summary Assessment Pt now able to amb well with SPC but does still lack post depression and has difficulty w/LLE wt acceptance. She still has dec terminal quad stability, but it is improved. Physical Therapy Plan Frequency and Duration Frequency of Treatment 2x/Week Duration of Treatment 3 months Plan of Care Start Date 09/06/21 Plan of Care End Date 12/07/21 Next Visit Focus/Plan Next Note Type Treatment Note Next Visit Plan Clinic: PNF post and ant dep to work on pelvic stability & hip mobility; cont to work on quad engagment Aquatic: continue gait training, strengthening quads and hips, balance, emphasis on core stab with all.
--- NOTE | 2021-10-07 11:51 | PT-OP ANOTE ---
Pt called clinic to cancel appt <24 hrs stating to schedulers to sore to attend PT today.
--- NOTE | 2021-10-10 08:17 | PT.OTN ---
Current Diagnoses Stiffness of right knee, not elsewhere classified (10/10/21) Muscle weakness (generalized) (10/10/21) Unsteadiness on feet (10/10/21) Fall on same level, unspecified, initial encounter (10/10/21) Presence of unspecified artificial knee joint (10/10/21) Physical Therapy Treatment Note PT-OP-A Visit Information Start: 07/05/21 15:54 Freq: Status: Active Protocol: Document 10/10/21 12:30 [facility] (Rec: 10/11/21 08:16 [facility] [id number]) Out-Patient Physical Therapy Visit Information Visit Information Visit Type Treatment Note Visit Note 01/08 Visit Start Time 12:30 Visit Stop Time 13:15 Total Visit Minutes 45 Visit Number 19 Number of ADOPTION SOCIAL WORKER Visits 0 PT-OP-B Current Condition Start: 07/05/21 15:54 Freq: Status: Active Protocol: Document 07/11/21 15:06 [facility] (Rec: 07/11/21 18:30 [facility] [id number]) Current Condition History of Current Condition Onset Date 06/28/21 Current Complaints L History of Current Condition Slipper on ice landing on R hip with L leg behind resulting in L distal femur fracture. Pt is 11 days s/p ORIF 06/30/21. PRECAUTIONS: TTWB LLE, knee imimobilizer for comfort, ROM as tolerated L knee. Pt has been doing a HEP (QS, GS, heel slides, assisted hip AB) 2x/day. Pt denies pain except in neck at nighttime during sleep. PMH: Cori TKA, R forefoot fusion, fx R wrist. Prior Treatments and Tests HEP issued post-op. Future Testing and Treatments Planned Pt surgical follow up in 2 days. Treatment Goals Patient/Caregiver Goals Pt goal is to be able to get up and walk when she wants. Pt is agreeable to goal of walkling without the use of an assistive device. Prior Functional Status Baseline Function- ADL's Independent Baseline Function- Mobility Independent Baseline Function- Gait Independent w/o assistive device Baseline Function- Recreation/Hobbies Walked 1.5 miles daily. Hiked with walking pole. Current Functional Impairments (Reported) Functional Limitations- ADL's Wheelchair and walker bound with TTWBing LLE for gait using FWW. Functional Limitations- Mobility/Gait Walked 68' prior to fatigue from UE's. Functional Limitations- Recreation/ Returning to exercise gym for Hobbies neck/shoulder/upper body exercise. Personal Factors Other Personal Factors That May Effect Lives in [place], spouse Therapy/Recovery Marycruz Gary is physical therapy patient at same clinic . Cori TKA, L forefoot fused, herniated disc with discectomy ?L4-L5. Osteopenia. PT-OP-C Subjective Start: 07/05/21 15:54 Freq: Status: Active Protocol: Document 10/10/21 12:30 [facility] (Rec: 10/11/21 08:16 [facility] [id number]) OP-PT Subjective Patient Comments Patient Comments No new c/o. Continues to go to gym. Using trekking pole or cane instead of crutch PT-OP-G Mobility & Gait Start: 07/05/21 15:54 Freq: Status: Active Protocol: Document 07/11/21 15:06 [facility] (Rec: 07/11/21 18:30 [facility] [id number]) OP Mobility Evaluation Bed Mobility Supine to and from Sit Independent Transfers Sit to Stand Independent with FWW Bed to Chair Transfers Independent with FWW Car Transfers Independent Wheelchair Management Type of Wheelchair Normal Assessment Details Pt able to self propel and maneuver forward, backward and turn around independently. OP Gait Assessment Gait Gait Assistance Required: Independent Distance (Feet) 76 Able to Maintain Weight Bearing Status No During Gait Assistive Devices Assistive Device Front Wheeled Walker Gait Deviations General Gait Pattern Step-to Gait Comments Gait Comments Pt is TTWB LLE. PT-OP-K Range of Motion Start: 07/05/21 15:54 Freq: Status: Active Protocol: Document 09/06/21 13:48 [facility] (Rec: 09/06/21 18:37 [facility] [id number]) Hip Goniometric Range of Motion Hip Right Active Flexion w/Knee Flexed 122 Straight Leg Raise 90 Abduction 32 Left Active Flexion w/Knee Flexed 116 Straight Leg Raise 90 Abduction 11 Comments AAROM abd and SLR Knee Goniometric Range of Motion Knee Left Flexion Active (degrees) 112 Extension Active (degrees) 0 PT-OP-M Strength Start: 07/05/21 15:54 Freq: Status: Active Protocol: Document 09/06/21 13:48 [facility] (Rec: 09/06/21 18:37 [facility] [id number]) Hip Strength Hip Manual Muscle Testing Left Flexion (L2) 3+ Fair+ Extension (S1) 3 Fair Abduction 3 Fair Adduction 3+ Fair+ External Rotation 3+ Fair+ Internal Rotation 3- Fair- Right Flexion (L2) 4+ Good+ Extension (S1) 3+ Fair+ Abduction 4- Good- Adduction 4 Good External Rotation 5 Normal Internal Rotation 5 Normal Knee Strength Knee Manual Muscle Testing Right Flexion (S2) 5 Normal Extension (L3) 5 Normal Left Flexion (S2) 4+ Good+ Extension (L3) 3+ Fair+ Ankle/Foot Strength Ankle and Foot Manual Muscle Testing Right Dorsiflexion (L4) 5 Normal Plantarflexion (S1) 5 Normal Left Dorsiflexion (L4) 5 Normal Plantarflexion (S1) 5 Normal Comments PF tested seated PT-OP-Q Treatments Start: 07/05/21 15:54 Freq: Status: Active Protocol: Document 10/05/21 13:00 [facility] (Rec: 10/05/21 16:09 [facility] [id number]) Therapeutic Exercises Standing Exercises hip hikes Side left Equipment Used on step max cues Reps/Minutes 2x10 hip ext Side bilateral Equipment Used l1 Reps/Minutes 8 Gait Training Gait Activity wt shifts Comments standing in mirror fwd wt shift into each LE w/focus on L knee straight x15 B gait Comments w/cane working on sequencing and full wt acceptance Manual Therapy Treatment Soft Tissue Mobilization QL Body Location L QL & ant and lat over iliac crest Mobilization Type Myofascial Release,Strumming, Sustained Pressure Intensity/Depth Moderate Body Position Sidelying Comments w/post dep FM quad Body Location L lat border lateralis & thigh circumfrential Mobilization Type Myofascial Release,Rolling, Strumming Intensity/Depth Moderate Body Position Supine Comments w/heel slides Neuro Re-Education Treatment Other Activities PNF Details L pelvis Comments 1. rhythmic iniation post dep 2.post depression sustained holds progressed to w/LE holds 3. mass elongation sustained holds L PT-OP-S Aquatic Treatment Start: 08/26/21 14:30 Freq: Status: Active Protocol: Document 10/10/21 12:30 [facility] (Rec: 10/11/21 08:16 [facility] [id number]) Aquatics Treatment Pool Entry/Exit Pool Entry/Exit Method Lift Assistance Standby Assistance Water Walking [place] Water Level Chest Level Level of Assistance Standby Assistance,Verbal Cues [place] Water Level Chest Level Lunge Walk Water Level Waist Level Level of Assistance Standby Assistance,Verbal Cues [place] Water Level Chest Level Comments 1# ankle weight [place] Water Level Chest Level Comments emphasize toes forward Sideways Water Level Chest Level Comments emphasize toes forward Backwards Water Level Chest Level Level of Assistance Standby Assistance,Verbal Cues Lower Extremity Exercises hip f/e;ab/ad;circles Details hh on wall Body Position Standing Water Level Chest Level Reps/Duration 10 B Lower Extremity Stretches gastroc, HS, soleus Details assisted Body Position Standing Water Level Waist Level Reps/Duration 2 x 45' LLE Comments noodle under ankle quads, hip flexors Details at wall Body Position Standing Water Level Waist Level Reps/Duration 2 x 45' B Comments noodle under ankle-quad stretch Balance SLS Reps/Duration 2x30 cori PT-OP-T Assessment and Plan Start: 07/05/21 15:54 Freq: Status: Active Protocol: Document 10/10/21 12:30 [facility] (Rec: 10/11/21 08:16 [facility] [id number]) Physical Therapy Assessment Goals ambulation Short Term Goal (STG) Pt will be able to amb short distances w/o AD w/good gait mechanics STG Duration 10/29/21 Technician Assistant Goal (LTG) Pt will be able to amb 2 miles without AD w/o inc pian greater than 2/10. LTG Duration 12/07/21 Three Impairment Decreased function per LEFS score of 17 Impairment LEFS score of 17 indicates 60- 79% impaired. Short Term Goal (STG) Improve function per LEFS score of no less than 32 (40- 59% impaired) 09/06-n/t STG Duration 10/07/21 Longterm Goal (LTG) Improve function per LEFS score no less than 63 (1-19% impaired). LTG Duration 12/02/21 Two Impairment Not able to ambulate without use of assistive device Impairment Gait 76' with FWW/NWBing LLE prior to fatigue. Short Term Goal (STG) Pt will be able to ambulate 100' with FWW with use of an assistive device and greater WBing of LLE when cleared for partial WBing of LLE. 08/23/21: progressinft maintaining PWB 20% of BW w/ FWW, step to gait. STG Duration achieved 09/06 Longterm Goal (LTG) Pt will be able to tolerate no less than 100' gait without use of assistive device when cleared for full WBing of LLE. 08/23/21: progressing 155ft maintaining PWB 20% of BW w/ FWW, step to gait. LTG Duration achieved 09/06 One Impairment Lacks appropriate self care HEP Short Term Goal (STG) Pt will be independent in a self care HEP to promote ongoing L knee/hip strengthening/ROM and core stabilization. 09/06-advancinga s able STG Duration 10/07 Technician Assistant Goal (LTG) Pt will have at least 4+/5 LE MMT in all planes B to show improved stability of hip and knee to improve ability to mobilize int he community LTG Duration 12/07 Assessment Summary Assessment Patient tendency with weight- bearing left is locked knee, able to ambulate with better form and stability in chest level water. Physical Therapy Plan Frequency and Duration Frequency of Treatment 2x/Week Duration of Treatment 3 months Plan of Care Start Date 09/06/21 Plan of Care End Date 12/07/21 Next Visit Focus/Plan Next Note Type Progress Note Next Visit Plan Clinic: PNF post and ant dep to work on pelvic stability & hip mobility; cont to work on quad engagment Aquatic: continue gait training, strengthening quads and hips, balance, emphasis on core stab with all.
--- NOTE | 2021-10-12 14:52 | PT.OTN ---
Current Diagnoses Stiffness of right knee, not elsewhere classified (10/12/21) Muscle weakness (generalized) (10/12/21) Unsteadiness on feet (10/12/21) Fall on same level, unspecified, initial encounter (10/12/21) Presence of unspecified artificial knee joint (10/12/21) Physical Therapy Treatment Note PT-OP-A Visit Information Start: 07/05/21 15:54 Freq: Status: Active Protocol: Document 10/12/21 13:46 LR (Rec: 10/12/21 14:51 [facility] [id number]) Out-Patient Physical Therapy Visit Information Visit Information Visit Type Treatment Note Visit Note 07/11 Visit Start Time 13:47 Visit Stop Time 14:30 Total Visit Minutes 42 Visit Number 20 Number of BOTTLE HOP Visits 0 PT-OP-B Current Condition Start: 07/05/21 15:54 Freq: Status: Active Protocol: Document 07/11/21 15:06 LRN (Rec: 07/11/21 18:30 LRN [id number]) Current Condition History of Current Condition Onset Date 06/28/21 Current Complaints L History of Current Condition Slipper on ice landing on R hip with L leg behind resulting in L distal femur fracture. Pt is 11 days s/p ORIF 06/30/21. PRECAUTIONS: TTWB LLE, knee imimobilizer for comfort, ROM as tolerated L knee. Pt has been doing a HEP (QS, GS, heel slides, assisted hip AB) 2x/day. Pt denies pain except in neck at nighttime during sleep. PMH: Tiburcio TKA, R forefoot fusion, fx R wrist. Prior Treatments and Tests HEP issued post-op. Future Testing and Treatments Planned Pt surgical follow up in 2 days. Treatment Goals Patient/Caregiver Goals Pt goal is to be able to get up and walk when she wants. Pt is agreeable to goal of walkling without the use of an assistive device. Prior Functional Status Baseline Function- ADL's Independent Baseline Function- Mobility Independent Baseline Function- Gait Independent w/o assistive device Baseline Function- Recreation/Hobbies Walked 1.5 miles daily. Hiked with walking pole. Current Functional Impairments (Reported) Functional Limitations- ADL's Wheelchair and walker bound with TTWBing LLE for gait using FWW. Functional Limitations- Mobility/Gait Walked 68' prior to fatigue from UE's. Functional Limitations- Recreation/ Returning to exercise gym for Hobbies neck/shoulder/upper body exercise. Personal Factors Other Personal Factors That May Effect Lives in [place], spouse Therapy/Recovery Marycruz Vega is physical therapy patient at same clinic . Tiburcio TKA, L forefoot fused, herniated disc with discectomy ?L4-L5. Osteopenia. PT-OP-C Subjective Start: 07/05/21 15:54 Freq: Status: Active Protocol: Document 10/12/21 13:46 [facility] (Rec: 10/12/21 14:52 [facility] [id number]) OP-PT Subjective Patient Comments Patient Comments Pt reports she doesn't feel like she can walk w/o the cane yet at all. Patient Reported Progress Improving PT-OP-G Mobility & Gait Start: 07/05/21 15:54 Freq: Status: Active Protocol: Document 07/11/21 15:06 LRN (Rec: 07/11/21 18:30 [facility] [id number]) OP Mobility Evaluation Bed Mobility Supine to and from Sit Independent Transfers Sit to Stand Independent with FWW Bed to Chair Transfers Independent with FWW Car Transfers Independent Wheelchair Management Type of Wheelchair Normal Assessment Details Pt able to self propel and maneuver forward, backward and turn around independently. OP Gait Assessment Gait Gait Assistance Required: Independent Distance (Feet) 76 Able to Maintain Weight Bearing Status No During Gait Assistive Devices Assistive Device Front Wheeled Walker Gait Deviations General Gait Pattern Step-to Gait Comments Gait Comments Pt is TTWB LLE. PT-OP-K Range of Motion Start: 07/05/21 15:54 Freq: Status: Active Protocol: Document 10/12/21 13:46 [facility] (Rec: 10/12/21 14:51 [facility] [id number]) Hip Goniometric Range of Motion Hip Left Active Flexion w/Knee Flexed 115 Abduction 22 Knee Goniometric Range of Motion Knee Left Flexion Active (degrees) 116 Extension Active (degrees) 0 PT-OP-M Strength Start: 07/05/21 15:54 Freq: Status: Active Protocol: Document 10/12/21 13:46 [facility] (Rec: 10/12/21 14:51 [facility] [id number]) Hip Strength Hip Manual Muscle Testing Left Flexion (L2) 4 Good Extension (S1) 3+ Fair+ Abduction 3+ Fair+ Adduction 4- Good- External Rotation 3+ Fair+ Internal Rotation 3+ Fair+ Right Flexion (L2) 5 Normal Extension (S1) 3+ Fair+ Abduction 4+ Good+ Adduction 4+ Good+ External Rotation 4+ Good+ Internal Rotation 4+ Good+ Knee Strength Knee Manual Muscle Testing Right Flexion (S2) 5 Normal Extension (L3) 5 Normal Left Flexion (S2) 4+ Good+ Extension (L3) 3+ Fair+ Ankle/Foot Strength Ankle and Foot Manual Muscle Testing Right Dorsiflexion (L4) 5 Normal Plantarflexion (S1) 5 Normal Left Dorsiflexion (L4) 5 Normal Plantarflexion (S1) 5 Normal Comments PF tested seated PT-OP-Q Treatments Start: 07/05/21 15:54 Freq: Status: Active Protocol: Document 10/12/21 13:46 [facility] (Rec: 10/12/21 14:51 [facility] [id number]) Therapeutic Exercises Supine Exercises core Supine Exercise Name 1. SL L isometric flex 2. DL iso flex Side bilateral Equipment Used 1 min Sidelying Exercises clamshell Sidelying Exercise Name 1. clamshell 2. reverse clam Side left Reps/Minutes 15 ea Manual Therapy Treatment Soft Tissue Mobilization quad Body Location L quad and thigh MFR Mobilization Type Myofascial Release,Rolling, Strumming Comments in 1/2 kneel w/rotation of trunk adductor Body Location L adductor Mobilization Type Myofascial Release,Rolling, Strumming Intensity/Depth Moderate Body Position Hooklying Comments w/hip IR/ER iliacus Body Location L iliacus and psoas at orgins Mobilization Type Strumming,Sustained Pressure Intensity/Depth Moderate Body Position Supine Comments w/heel slides PT-OP-S Aquatic Treatment Start: 08/26/21 14:30 Freq: Status: Active Protocol: Document 10/10/21 12:30 [facility] (Rec: 10/11/21 08:16 [facility] [id number]) Aquatics Treatment Pool Entry/Exit Pool Entry/Exit Method Lift Assistance Standby Assistance Water Walking march kick Water Level Chest Level Level of Assistance Standby Assistance,Verbal Cues [place] Water Level Chest Level Lunge Walk Water Level Waist Level Level of Assistance Standby Assistance,Verbal Cues [place] March Water Level Chest Level Comments 1# ankle weight Marching Water Level Chest Level Comments emphasize toes forward Sideways Water Level Chest Level Comments emphasize toes forward Backwards Water Level Chest Level Level of Assistance Standby Assistance,Verbal Cues Lower Extremity Exercises hip f/e;ab/ad;circles Details hh on wall Body Position Standing Water Level Chest Level Reps/Duration 10 B Lower Extremity Stretches gastroc, HS, soleus Details assisted Body Position Standing Water Level Waist Level Reps/Duration 2 x 45' LLE Comments noodle under ankle quads, hip flexors Details at wall Body Position Standing Water Level Waist Level Reps/Duration 2 x 45' B Comments noodle under ankle-quad stretch Balance SLS Reps/Duration 2x30 tiburcio Other aquatic exercise bike Body Position Sitting Water Level Chest Level Equipment aqua bike Reps/Duration 5 min PT-OP-T Assessment and Plan Start: 07/05/21 15:54 Freq: Status: Active Protocol: Document 10/12/21 13:46 [facility] (Rec: 10/12/21 14:51 [facility] [id number]) Physical Therapy Assessment Goals ambulation Short Term Goal (STG) Pt will be able to amb short distances w/o AD w/good gait mechanics 10/12-can amb w/cane short and long distances but still requires external support STG Duration 10/29/21 Tram Driver Goal (LTG) Pt will be able to amb 2 miles without AD w/o inc pian greater than 2/10. LTG Duration 12/07/21 Three Impairment Decreased function per LEFS score of 17 Impairment LEFS score of 17 indicates 60- 79% impaired. Short Term Goal (STG) Improve function per LEFS score of no less than 32 (40- 59% impaired) 09/06-n/t STG Duration achieved to 39/80 Tram Driver Goal (LTG) Improve function per LEFS score no less than 63 (1-19% impaired). LTG Duration 12/02/21 Two Impairment Not able to ambulate without use of assistive device Impairment Gait 76' with FWW/NWBing LLE prior to fatigue. Short Term Goal (STG) Pt will be able to ambulate 100' with FWW with use of an assistive device and greater WBing of LLE when cleared for partial WBing of LLE. 08/23/21: progressinft maintaining PWB 20% of BW w/ FWW, step to gait. STG Duration achieved 09/06 Tram Driver Goal (LTG) Pt will be able to tolerate no less than 100' gait without use of assistive device when cleared for full WBing of LLE. 08/23/21: progressing 155ft maintaining PWB 20% of BW w/ FWW, step to gait. LTG Duration achieved 09/06 One Impairment Lacks appropriate self care HEP Short Term Goal (STG) Pt will be independent in a self care HEP to promote ongoing L knee/hip strengthening/ROM and core stabilization. 09/06-advancinga s able STG Duration achieved progressing as able Tram Driver Goal (LTG) Pt will have at least 4+/5 LE MMT in all planes B to show improved stability of hip and knee to improve ability to mobilize int he community 10/12-improving LTG Duration 12/07 Assessment Summary Assessment Pt cont to improve with strength, comfortable ROM, and funtional ability. She is still significantly limited but is progressing well w/PT. She has significant hip weakness still especially in glutes. She would benefit from cont PT to address these deficits. Physical Therapy Plan Next Visit Focus/Plan Next Note Type Treatment Note Next Visit Plan Clinic: PNF post and ant dep to work on pelvic stability & hip mobility; cont to work on quad engagment & working on step ups and squats Aquatic: continue gait training, strengthening quads and hips, balance, emphasis on core stab with all.
--- NOTE | 2021-10-17 13:48 | PT.OTN ---
Current Diagnoses Stiffness of right knee, not elsewhere classified (10/17/21) Muscle weakness (generalized) (10/17/21) Unsteadiness on feet (10/17/21) Fall on same level, unspecified, initial encounter (10/17/21) Presence of unspecified artificial knee joint (10/17/21) Physical Therapy Treatment Note PT-OP-A Visit Information Start: 07/05/21 15:54 Freq: Status: Active Protocol: Document 10/17/21 12:59 SP (Rec: 10/17/21 13:50 SP [id number]) Out-Patient Physical Therapy Visit Information Visit Information Visit Type Treatment Note Visit Note 08/11 Visit Start Time 13:00 Visit Stop Time 13:48 Total Visit Minutes 48 Visit Number 21 Number of TACK CUTTER Visits 1 PT-OP-B Current Condition Start: 07/05/21 15:54 Freq: Status: Active Protocol: Document 07/11/21 15:06 LRN (Rec: 07/11/21 18:30 LRN [id number]) Current Condition History of Current Condition Onset Date 06/28/21 Current Complaints L History of Current Condition Slipper on ice landing on R hip with L leg behind resulting in L distal femur fracture. Pt is 11 days s/p ORIF 06/30/21. PRECAUTIONS: TTWB LLE, knee imimobilizer for comfort, ROM as tolerated L knee. Pt has been doing a HEP (QS, GS, heel slides, assisted hip AB) 2x/day. Pt denies pain except in neck at nighttime during sleep. PMH: Cori TKA, R forefoot fusion, fx R wrist. Prior Treatments and Tests HEP issued post-op. Future Testing and Treatments Planned Pt surgical follow up in 2 days. Treatment Goals Patient/Caregiver Goals Pt goal is to be able to get up and walk when she wants. Pt is agreeable to goal of walkling without the use of an assistive device. Prior Functional Status Baseline Function- ADL's Independent Baseline Function- Mobility Independent Baseline Function- Gait Independent w/o assistive device Baseline Function- Recreation/Hobbies Walked 1.5 miles daily. Hiked with walking pole. Current Functional Impairments (Reported) Functional Limitations- ADL's Wheelchair and walker bound with TTWBing LLE for gait using FWW. Functional Limitations- Mobility/Gait Walked 68' prior to fatigue from UE's. Functional Limitations- Recreation/ Returning to exercise gym for Hobbies neck/shoulder/upper body exercise. Personal Factors Other Personal Factors That May Effect Lives in [place], spouse Therapy/Recovery Marycruz Gary is physical therapy patient at same clinic . Cori TKA, L forefoot fused, herniated disc with discectomy ?L4-L5. Osteopenia. PT-OP-C Subjective Start: 07/05/21 15:54 Freq: Status: Active Protocol: Document 10/17/21 12:59 SP (Rec: 10/17/21 13:50 SP [id number]) OP-PT Subjective Patient Comments Patient Comments Pt reports feels doing better, still needs use cane. PT-OP-G Mobility & Gait Start: 07/05/21 15:54 Freq: Status: Active Protocol: Document 07/11/21 15:06 LRN (Rec: 07/11/21 18:30 LRN [id number]) OP Mobility Evaluation Bed Mobility Supine to and from Sit Independent Transfers Sit to Stand Independent with FWW Bed to Chair Transfers Independent with FWW Car Transfers Independent Wheelchair Management Type of Wheelchair Normal Assessment Details Pt able to self propel and maneuver forward, backward and turn around independently. OP Gait Assessment Gait Gait Assistance Required: Independent Distance (Feet) 76 Able to Maintain Weight Bearing Status No During Gait Assistive Devices Assistive Device Front Wheeled Walker Gait Deviations General Gait Pattern Step-to Gait Comments Gait Comments Pt is TTWB LLE. PT-OP-K Range of Motion Start: 07/05/21 15:54 Freq: Status: Active Protocol: Document 10/12/21 13:46 [facility] (Rec: 10/12/21 14:51 [facility] [id number]) Hip Goniometric Range of Motion Hip Left Active Flexion w/Knee Flexed 115 Abduction 22 Knee Goniometric Range of Motion Knee Left Flexion Active (degrees) 116 Extension Active (degrees) 0 PT-OP-M Strength Start: 07/05/21 15:54 Freq: Status: Active Protocol: Document 10/12/21 13:46 [facility] (Rec: 10/12/21 14:51 [facility] [id number]) Hip Strength Hip Manual Muscle Testing Left Flexion (L2) 4 Good Extension (S1) 3+ Fair+ Abduction 3+ Fair+ Adduction 4- Good- External Rotation 3+ Fair+ Internal Rotation 3+ Fair+ Right Flexion (L2) 5 Normal Extension (S1) 3+ Fair+ Abduction 4+ Good+ Adduction 4+ Good+ External Rotation 4+ Good+ Internal Rotation 4+ Good+ Knee Strength Knee Manual Muscle Testing Right Flexion (S2) 5 Normal Extension (L3) 5 Normal Left Flexion (S2) 4+ Good+ Extension (L3) 3+ Fair+ Ankle/Foot Strength Ankle and Foot Manual Muscle Testing Right Dorsiflexion (L4) 5 Normal Plantarflexion (S1) 5 Normal Left Dorsiflexion (L4) 5 Normal Plantarflexion (S1) 5 Normal Comments PF tested seated PT-OP-Q Treatments Start: 07/05/21 15:54 Freq: Status: Active Protocol: Document 10/17/21 12:59 SP (Rec: 10/17/21 13:50 SP [id number]) Therapeutic Exercises Supine Exercises pelvic/hip realignment mus facilitation Supine Exercise Name pelvis lift (opp LE straight), hip ext (90/90) isometric Reps/Minutes 8 min Comments cued relax core, small glut lift w/ heel press, hip ext iso- improved fac Prone Exercises quad stretch Prone Exercise Name L w/ strap Equipment Used pillow under pelvis Reps/Minutes 60 x2 Comments self HEP Standing Exercises hip hikes Side left Equipment Used 4>2 step, rail contact on L Reps/Minutes multiple reps for quality hip abd facil. Comments cued stable trunk, level pelvis/shlds, focus more core & lift than lower. Gait Training Gait Activity wt shifts Comments standing in mirror fwd wt shift into RLE w/focus on L knee straight glut and calf push off facilitation then carryover gait phases gait Comments w/cane working on sequencing and full LLE wt acceptance and toe off terminal extension, cued even cadance which improved level pelvis leaving . Manual Therapy Treatment Soft Tissue Mobilization quad Body Location L quad and thigh MFR Mobilization Type Myofascial Release,Rolling, Strumming Intensity/Depth Moderate Body Position Hooklying TFL Body Location L Mobilization Type Myofascial Release Intensity/Depth Moderate Body Position Hooklying Comments manual, pillows btwn BLEs scar mob Body Location L lat scar Mobilization Type Myofascial Release,Rolling Intensity/Depth Moderate Body Position Hooklying Comments manual iliacus Body Location L iliacus and psoas at orgins Mobilization Type Strumming,Sustained Pressure Intensity/Depth Moderate Body Position Supine Comments w/ breath Joint Mobilizations tibiofibular jt Joint L Direction posterior glide Grade II Body Position Supine Comments manual Patellofemoral Joint L Direction sup, inf, med Grade II PT-OP-S Aquatic Treatment Start: 08/26/21 14:30 Freq: Status: Active Protocol: Document 10/10/21 12:30 [facility] (Rec: 10/11/21 08:16 [facility] [id number]) Aquatics Treatment Pool Entry/Exit Pool Entry/Exit Method Lift Assistance Standby Assistance Water Walking march kick Water Level Chest Level Level of Assistance Standby Assistance,Verbal Cues [place] Water Level Chest Level Lunge Walk Water Level Waist Level Level of Assistance Standby Assistance,Verbal Cues [place] March Water Level Chest Level Comments 1# ankle weight Marching Water Level Chest Level Comments emphasize toes forward Sideways Water Level Chest Level Comments emphasize toes forward Backwards Water Level Chest Level Level of Assistance Standby Assistance,Verbal Cues Lower Extremity Exercises hip f/e;ab/ad;circles Details hh on wall Body Position Standing Water Level Chest Level Reps/Duration 10 B Lower Extremity Stretches gastroc, HS, soleus Details assisted Body Position Standing Water Level Waist Level Reps/Duration 2 x 45' LLE Comments noodle under ankle quads, hip flexors Details at wall Body Position Standing Water Level Waist Level Reps/Duration 2 x 45' B Comments noodle under ankle-quad stretch Balance SLS Reps/Duration 2x30 cori Other aquatic exercise bike Body Position Sitting Water Level Chest Level Equipment aqua bike Reps/Duration 5 min PT-OP-T Assessment and Plan Start: 07/05/21 15:54 Freq: Status: Active Protocol: Document 10/17/21 12:59 SP (Rec: 10/17/21 13:50 SP [id number]) Physical Therapy Assessment Goals ambulation Short Term Goal (STG) Pt will be able to amb short distances w/o AD w/good gait mechanics 10/12-can amb w/cane short and long distances but still requires external support STG Duration 10/29/21 Slip Dumper Goal (LTG) Pt will be able to amb 2 miles without AD w/o inc pian greater than 2/10. LTG Duration 12/07/21 Three Impairment Decreased function per LEFS score of 17 Impairment LEFS score of 17 indicates 60- 79% impaired. Short Term Goal (STG) Improve function per LEFS score of no less than 32 (40- 59% impaired) 09/06-n/t STG Duration achieved to 39/80 Slip Dumper Goal (LTG) Improve function per LEFS score no less than 63 (1-19% impaired). LTG Duration 12/02/21 Two Impairment Not able to ambulate without use of assistive device Impairment Gait 76' with FWW/NWBing LLE prior to fatigue. Short Term Goal (STG) Pt will be able to ambulate 100' with FWW with use of an assistive device and greater WBing of LLE when cleared for partial WBing of LLE. 08/23/21: progressinft maintaining PWB 20% of BW w/ FWW, step to gait. STG Duration achieved 09/06 Shelter Goal (LTG) Pt will be able to tolerate no less than 100' gait without use of assistive device when cleared for full WBing of LLE. 08/23/21: progressing 155ft maintaining PWB 20% of BW w/ FWW, step to gait. LTG Duration achieved 09/06 One Impairment Lacks appropriate self care HEP Short Term Goal (STG) Pt will be independent in a self care HEP to promote ongoing L knee/hip strengthening/ROM and core stabilization. 09/06-advancinga s able STG Duration achieved progressing as able Slip Dumper Goal (LTG) Pt will have at least 4+/5 LE MMT in all planes B to show improved stability of hip and knee to improve ability to mobilize int he community 10/12-improving LTG Duration 12/07 Assessment Summary Assessment Pt improved L hip abd and glut fac post manual hip flexors, pelvic realignment muscle isometrics and wt shifts standing in mirror for carry over gait with SPC noted even BLE solange when cued leaving. Physical Therapy Plan Frequency and Duration Frequency of Treatment 2x/Week Duration of Treatment 3 months Plan of Care Start Date 09/06/21 Plan of Care End Date 12/07/21 Therapeutic Interventions Therapeutic Interventions Aquatic Therapy,Balance Training,Gait Training,Home Exercise Program,Joint Mobilizations,Manual Therapy, Neuromuscular Re-education, Patient/Caregiver Education, Self-Care/Home Management,Soft Tissue Mobilization,Taping, Therapeutic Activities, Therapeutic Exercises Modalities Cold Pack/Ice Massage,Electric Stimulation,Hot Packs, Ultrasound Next Visit Focus/Plan Next Note Type Treatment Note Next Visit Plan Clinic: PNF post and ant dep to work on pelvic stability & hip mobility; cont to work on quad engagment & working on step ups and squats Aquatic: continue gait training, strengthening quads and hips, balance, emphasis on core stab with all.
--- NOTE | 2021-10-19 17:38 | PT.OTN ---
Current Diagnoses Stiffness of right knee, not elsewhere classified (10/19/21) Muscle weakness (generalized) (10/19/21) Unsteadiness on feet (10/19/21) Fall on same level, unspecified, initial encounter (10/19/21) Presence of unspecified artificial knee joint (10/19/21) Physical Therapy Treatment Note PT-OP-A Visit Information Start: 07/05/21 15:54 Freq: Status: Active Protocol: Document 10/19/21 17:29 SAK (Rec: 10/19/21 17:38 SAK [id number]) Out-Patient Physical Therapy Visit Information Visit Information Visit Type Treatment Note Visit Note 09/08 Visit Start Time 13:00 Visit Stop Time 13:48 Total Visit Minutes 45 Visit Number 22 Number of CARPENTER HELPER Visits 0 Evaluation Information Evaluation Date 07/11/21 PT-OP-B Current Condition Start: 07/05/21 15:54 Freq: Status: Active Protocol: Document 07/11/21 15:06 LRN (Rec: 07/11/21 18:30 LRN [id number]) Current Condition History of Current Condition Onset Date 06/28/21 Current Complaints L History of Current Condition Slipper on ice landing on R hip with L leg behind resulting in L distal femur fracture. Pt is 11 days s/p ORIF 06/30/21. PRECAUTIONS: TTWB LLE, knee imimobilizer for comfort, ROM as tolerated L knee. Pt has been doing a HEP (QS, GS, heel slides, assisted hip AB) 2x/day. Pt denies pain except in neck at nighttime during sleep. PMH: Tiburcio TKA, R forefoot fusion, fx R wrist. Prior Treatments and Tests HEP issued post-op. Future Testing and Treatments Planned Pt surgical follow up in 2 days. Treatment Goals Patient/Caregiver Goals Pt goal is to be able to get up and walk when she wants. Pt is agreeable to goal of walkling without the use of an assistive device. Prior Functional Status Baseline Function- ADL's Independent Baseline Function- Mobility Independent Baseline Function- Gait Independent w/o assistive device Baseline Function- Recreation/Hobbies Walked 1.5 miles daily. Hiked with walking pole. Current Functional Impairments (Reported) Functional Limitations- ADL's Wheelchair and walker bound with TTWBing LLE for gait using FWW. Functional Limitations- Mobility/Gait Walked 68' prior to fatigue from UE's. Functional Limitations- Recreation/ Returning to exercise gym for Hobbies neck/shoulder/upper body exercise. Personal Factors Other Personal Factors That May Effect Lives in [place], spouse Therapy/Recovery Marycruz Vega is physical therapy patient at same clinic . Tiburcio TKA, L forefoot fused, herniated disc with discectomy ?L4-L5. Osteopenia. PT-OP-C Subjective Start: 07/05/21 15:54 Freq: Status: Active Protocol: Document 10/19/21 17:29 SAK (Rec: 10/19/21 17:38 SAK [id number]) OP-PT Subjective Patient Comments Patient Comments Patient reports she has a hard time activating her glut on the right. Has tried trekking poles but states her hands and wrists hurt too much with use. PT-OP-G Mobility & Gait Start: 07/05/21 15:54 Freq: Status: Active Protocol: Document 07/11/21 15:06 LRN (Rec: 07/11/21 18:30 LRN [id number]) OP Mobility Evaluation Bed Mobility Supine to and from Sit Independent Transfers Sit to Stand Independent with FWW Bed to Chair Transfers Independent with FWW Car Transfers Independent Wheelchair Management Type of Wheelchair Normal Assessment Details Pt able to self propel and maneuver forward, backward and turn around independently. OP Gait Assessment Gait Gait Assistance Required: Independent Distance (Feet) 76 Able to Maintain Weight Bearing Status No During Gait Assistive Devices Assistive Device Front Wheeled Walker Gait Deviations General Gait Pattern Step-to Gait Comments Gait Comments Pt is TTWB LLE. PT-OP-K Range of Motion Start: 07/05/21 15:54 Freq: Status: Active Protocol: Document 10/12/21 13:46 [facility] (Rec: 10/12/21 14:51 [facility] [id number]) Hip Goniometric Range of Motion Hip Left Active Flexion w/Knee Flexed 115 Abduction 22 Knee Goniometric Range of Motion Knee Left Flexion Active (degrees) 116 Extension Active (degrees) 0 PT-OP-M Strength Start: 07/05/21 15:54 Freq: Status: Active Protocol: Document 10/12/21 13:46 [facility] (Rec: 10/12/21 14:51 [facility] [id number]) Hip Strength Hip Manual Muscle Testing Left Flexion (L2) 4 Good Extension (S1) 3+ Fair+ Abduction 3+ Fair+ Adduction 4- Good- External Rotation 3+ Fair+ Internal Rotation 3+ Fair+ Right Flexion (L2) 5 Normal Extension (S1) 3+ Fair+ Abduction 4+ Good+ Adduction 4+ Good+ External Rotation 4+ Good+ Internal Rotation 4+ Good+ Knee Strength Knee Manual Muscle Testing Right Flexion (S2) 5 Normal Extension (L3) 5 Normal Left Flexion (S2) 4+ Good+ Extension (L3) 3+ Fair+ Ankle/Foot Strength Ankle and Foot Manual Muscle Testing Right Dorsiflexion (L4) 5 Normal Plantarflexion (S1) 5 Normal Left Dorsiflexion (L4) 5 Normal Plantarflexion (S1) 5 Normal Comments PF tested seated PT-OP-Q Treatments Start: 07/05/21 15:54 Freq: Status: Active Protocol: Document 10/17/21 12:59 SP (Rec: 10/17/21 13:50 SP [id number]) Therapeutic Exercises Supine Exercises pelvic/hip realignment mus facilitation Supine Exercise Name pelvis lift (opp LE straight), hip ext (90/90) isometric Reps/Minutes 8 min Comments cued relax core, small glut lift w/ heel press, hip ext iso- improved fac Prone Exercises quad stretch Prone Exercise Name L w/ strap Equipment Used pillow under pelvis Reps/Minutes 60 x2 Comments self HEP Standing Exercises hip hikes Side left Equipment Used 4>2 step, rail contact on L Reps/Minutes multiple reps for quality hip abd facil. Comments cued stable trunk, level pelvis/shlds, focus more core & lift than lower. Gait Training Gait Activity wt shifts Comments standing in mirror fwd wt shift into RLE w/focus on L knee straight glut and calf push off facilitation then carryover gait phases gait Comments w/cane working on sequencing and full LLE wt acceptance and toe off terminal extension, cued even cadance which improved level pelvis leaving . Manual Therapy Treatment Soft Tissue Mobilization quad Body Location L quad and thigh MFR Mobilization Type Myofascial Release,Rolling, Strumming Intensity/Depth Moderate Body Position Hooklying TFL Body Location L Mobilization Type Myofascial Release Intensity/Depth Moderate Body Position Hooklying Comments manual, pillows btwn BLEs scar mob Body Location L lat scar Mobilization Type Myofascial Release,Rolling Intensity/Depth Moderate Body Position Hooklying Comments manual iliacus Body Location L iliacus and psoas at orgins Mobilization Type Strumming,Sustained Pressure Intensity/Depth Moderate Body Position Supine Comments w/ breath Joint Mobilizations tibiofibular jt Joint L Direction posterior glide Grade II Body Position Supine Comments manual Patellofemoral Joint L Direction sup, inf, med Grade II PT-OP-S Aquatic Treatment Start: 08/26/21 14:30 Freq: Status: Active Protocol: Document 10/19/21 17:29 [facility] (Rec: 10/19/21 17:38 [facility] [id number]) Aquatics Treatment Pool Entry/Exit Pool Entry/Exit Method Lift Assistance Standby Assistance Water Walking fast walking Water Level Chest Level Comments large ankle floats march kick Water Level Chest Level Walking Equipment large ankle floats Level of Assistance Standby Assistance,Verbal Cues step-ups Water Level Chest Level Comments 10x2, 8 boxes, cues for gluteal engagement Lunge Walk Water Level Waist Level Level of Assistance Standby Assistance,Verbal Cues [place] March Water Level Chest Level Level of Assistance Standby Assistance,Verbal Cues Comments large ankle floats Marching Water Level Chest Level Comments fwd and back, large ankle floats Backwards Water Level Chest Level Level of Assistance Standby Assistance,Verbal Cues Comments large ankle floats [place] Water Level Chest Level Comments large ankle floats Lower Extremity Exercises SLS Reps/Duration 2x20 tiburcio hip f/e;ab/ad;circles Details hh on wall Body Position Standing Water Level Chest Level Reps/Duration 20x B Comments large ankle floats Lower Extremity Stretches TFL Details at wall Body Position Standing Water Level Chest Level Equipment large ankle floats tiburcio Reps/Duration 2 x 30' B quads, hip flexors Details at wall Body Position Standing Water Level Waist Level Equipment large ankle floats tiburcio Reps/Duration 2 x 30 B [place] Activities [place] Activities Bicycle,Bicycle Backwards, Cross [place],Running,Sit Kicks Equipment flotation belt Duration 10 min PT-OP-T Assessment and Plan Start: 07/05/21 15:54 Freq: Status: Active Protocol: Document 10/19/21 17:29 [facility] (Rec: 10/19/21 17:38 [facility] [id number]) Physical Therapy Assessment Goals ambulation Short Term Goal (STG) Pt will be able to amb short distances w/o AD w/good gait mechanics 10/12-can amb w/cane short and long distances but still requires external support STG Duration 10/29/21 Pastry Sous Chef Goal (LTG) Pt will be able to amb 2 miles without AD w/o inc pian greater than 2/10. LTG Duration 12/07/21 Three Impairment Decreased function per LEFS score of 17 Impairment LEFS score of 17 indicates 60- 79% impaired. Short Term Goal (STG) Improve function per LEFS score of no less than 32 (40- 59% impaired) 09/06-n/t STG Duration achieved to 39/80 Care Home Goal (LTG) Improve function per LEFS score no less than 63 (1-19% impaired). LTG Duration 12/02/21 Two Impairment Not able to ambulate without use of assistive device Impairment Gait 76' with FWW/NWBing LLE prior to fatigue. Short Term Goal (STG) Pt will be able to ambulate 100' with FWW with use of an assistive device and greater WBing of LLE when cleared for partial WBing of LLE. 08/23/21: progressinft maintaining PWB 20% of BW w/ FWW, step to gait. STG Duration achieved 09/06 Pastry Sous Chef Goal (LTG) Pt will be able to tolerate no less than 100' gait without use of assistive device when cleared for full WBing of LLE. 08/23/21: progressing 155ft maintaining PWB 20% of BW w/ FWW, step to gait. LTG Duration achieved 09/06 One Impairment Lacks appropriate self care HEP Short Term Goal (STG) Pt will be independent in a self care HEP to promote ongoing L knee/hip strengthening/ROM and core stabilization. 09/06-advancinga s able STG Duration achieved progressing as able Pastry Sous Chef Goal (LTG) Pt will have at least 4+/5 LE MMT in all planes B to show improved stability of hip and knee to improve ability to mobilize int he community 10/12-improving LTG Duration 12/07 Assessment Summary Assessment Patient was able to feel improved hip muscle engagement with slow step-ups/downs on 8 boxes, no UE support, and use of large ankle floats for increased challenge with gait activities. Min UE support for 4-way hip ex at chest level water even with addition of large ankle floats. She was instructed in correct use of trekking pole loops for weight-bearing through lateral hand/wrist; may need further instruction in clinic to allow her to use with less pain. Physical Therapy Plan Frequency and Duration Frequency of Treatment 2x/Week Duration of Treatment 3 months Plan of Care Start Date 09/06/21 Plan of Care End Date 12/07/21 Therapeutic Interventions Therapeutic Interventions Aquatic Therapy,Balance Training,Gait Training,Home Exercise Program,Joint Mobilizations,Manual Therapy, Neuromuscular Re-education, Patient/Caregiver Education, Self-Care/Home Management,Soft Tissue Mobilization,Taping, Therapeutic Activities, Therapeutic Exercises Modalities Cold Pack/Ice Massage,Electric Stimulation,Hot Packs, Ultrasound Next Visit Focus/Plan Next Note Type Treatment Note Next Visit Plan Clinic: PNF post and ant dep to work on pelvic stability & hip mobility; cont to work on quad engagment & working on step ups and squats Aquatic: continue gait training, strengthening quads and hips, balance, emphasis on core stab with all.
--- NOTE | 2021-10-24 15:18 | PT.OTN ---
Current Diagnoses Stiffness of right knee, not elsewhere classified (10/24/21) Muscle weakness (generalized) (10/24/21) Unsteadiness on feet (10/24/21) Fall on same level, unspecified, initial encounter (10/24/21) Presence of unspecified artificial knee joint (10/24/21) Physical Therapy Treatment Note PT-OP-A Visit Information Start: 07/05/21 15:54 Freq: Status: Active Protocol: Document 10/24/21 15:11 LR (Rec: 10/24/21 15:18 [facility] [id number]) Out-Patient Physical Therapy Visit Information Visit Information Visit Type Treatment Note Visit Note 10/09 Visit Start Time 13:50 Visit Stop Time 14:43 Total Visit Minutes 53 Visit Number 23 Number of CONFIDENTIAL INVESTIGATOR Visits 0 PT-OP-B Current Condition Start: 07/05/21 15:54 Freq: Status: Active Protocol: Document 07/11/21 15:06 LRN (Rec: 07/11/21 18:30 LRN [id number]) Current Condition History of Current Condition Onset Date 06/28/21 Current Complaints L History of Current Condition Slipper on ice landing on R hip with L leg behind resulting in L distal femur fracture. Pt is 11 days s/p ORIF 06/30/21. PRECAUTIONS: TTWB LLE, knee imimobilizer for comfort, ROM as tolerated L knee. Pt has been doing a HEP (QS, GS, heel slides, assisted hip AB) 2x/day. Pt denies pain except in neck at nighttime during sleep. PMH: Tiburcio TKA, R forefoot fusion, fx R wrist. Prior Treatments and Tests HEP issued post-op. Future Testing and Treatments Planned Pt surgical follow up in 2 days. Treatment Goals Patient/Caregiver Goals Pt goal is to be able to get up and walk when she wants. Pt is agreeable to goal of walkling without the use of an assistive device. Prior Functional Status Baseline Function- ADL's Independent Baseline Function- Mobility Independent Baseline Function- Gait Independent w/o assistive device Baseline Function- Recreation/Hobbies Walked 1.5 miles daily. Hiked with walking pole. Current Functional Impairments (Reported) Functional Limitations- ADL's Wheelchair and walker bound with TTWBing LLE for gait using FWW. Functional Limitations- Mobility/Gait Walked 68' prior to fatigue from UE's. Functional Limitations- Recreation/ Returning to exercise gym for Hobbies neck/shoulder/upper body exercise. Personal Factors Other Personal Factors That May Effect Lives in [place], spouse Therapy/Recovery Marycruz Vega is physical therapy patient at same clinic . Tiburcio TKA, L forefoot fused, herniated disc with discectomy ?L4-L5. Osteopenia. PT-OP-C Subjective Start: 07/05/21 15:54 Freq: Status: Active Protocol: Document 10/24/21 15:11 LR (Rec: 10/24/21 15:18 [facility] [id number]) OP-PT Subjective Patient Comments Patient Comments Pt reports a lot of frustation w/where she is. Reprots she feels like her pelvis is really off every AM making it hard to work out th service trainer. PT-OP-G Mobility & Gait Start: 07/05/21 15:54 Freq: Status: Active Protocol: Document 07/11/21 15:06 LR (Rec: 07/11/21 18:30 [facility] [id number]) OP Mobility Evaluation Bed Mobility Supine to and from Sit Independent Transfers Sit to Stand Independent with FWW Bed to Chair Transfers Independent with FWW Car Transfers Independent Wheelchair Management Type of Wheelchair Normal Assessment Details Pt able to self propel and maneuver forward, backward and turn around independently. OP Gait Assessment Gait Gait Assistance Required: Independent Distance (Feet) 76 Able to Maintain Weight Bearing Status No During Gait Assistive Devices Assistive Device Front Wheeled Walker Gait Deviations General Gait Pattern Step-to Gait Comments Gait Comments Pt is TTWB LLE. PT-OP-K Range of Motion Start: 07/05/21 15:54 Freq: Status: Active Protocol: Document 10/12/21 13:46 [facility] (Rec: 10/12/21 14:51 [facility] [id number]) Hip Goniometric Range of Motion Hip Left Active Flexion w/Knee Flexed 115 Abduction 22 Knee Goniometric Range of Motion Knee Left Flexion Active (degrees) 116 Extension Active (degrees) 0 PT-OP-M Strength Start: 07/05/21 15:54 Freq: Status: Active Protocol: Document 10/12/21 13:46 [facility] (Rec: 10/12/21 14:51 [facility] [id number]) Hip Strength Hip Manual Muscle Testing Left Flexion (L2) 4 Good Extension (S1) 3+ Fair+ Abduction 3+ Fair+ Adduction 4- Good- External Rotation 3+ Fair+ Internal Rotation 3+ Fair+ Right Flexion (L2) 5 Normal Extension (S1) 3+ Fair+ Abduction 4+ Good+ Adduction 4+ Good+ External Rotation 4+ Good+ Internal Rotation 4+ Good+ Knee Strength Knee Manual Muscle Testing Right Flexion (S2) 5 Normal Extension (L3) 5 Normal Left Flexion (S2) 4+ Good+ Extension (L3) 3+ Fair+ Ankle/Foot Strength Ankle and Foot Manual Muscle Testing Right Dorsiflexion (L4) 5 Normal Plantarflexion (S1) 5 Normal Left Dorsiflexion (L4) 5 Normal Plantarflexion (S1) 5 Normal Comments PF tested seated PT-OP-Q Treatments Start: 07/05/21 15:54 Freq: Status: Active Protocol: Document 10/24/21 15:11 [facility] (Rec: 10/24/21 15:18 [facility] [id number]) Therapeutic Exercises Supine Exercises bridge Supine Exercise Name w/alt march Side bilateral Reps/Minutes 10 Comments cues for slow and controll and no pelvis drop Standing Exercises hip hikes Standing Exercise Name attempted on step and at wall w/ball at side Comments required max cues and pt had difficulty w/getting hip hike motion in all Gait Training Gait Activity wt shifts Distance/Duration 10 ea Comments 1.wt shift to LLE then RLE w/ focus on wt acceptance and push off progressed to w/step through B 2. 1/2 kneel wt shift to LLE for post dep on LLE Neuro Re-Education Treatment Other Activities facilitation Comments glutes L w/PT pull in seated w /traction & prolonged hold then work on sit to stand w/ drive into PT hand then stand x5 Self-Care/Home Management Treatment Education Other Education edu re: discussing w/MD re: popping in LLE w/movement. edu discuss w/MD re: still inability to do SLR w/o lag and deg stability of quad on L side Activities Self-Care/Home Management Activities set up pt w/07/09 in cork in L shoe which improved postural staibltiy and made pt feel more even PT-OP-S Aquatic Treatment Start: 08/26/21 14:30 Freq: Status: Active Protocol: Document 10/19/21 17:29 [facility] (Rec: 10/19/21 17:38 [facility] [id number]) Aquatics Treatment Pool Entry/Exit Pool Entry/Exit Method Lift Assistance Standby Assistance Water Walking fast walking Water Level Chest Level Comments large ankle floats march kick Water Level Chest Level Walking Equipment large ankle floats Level of Assistance Standby Assistance,Verbal Cues step-ups Water Level Chest Level Comments 10x2, 8 boxes, cues for gluteal engagement Lunge Walk Water Level Waist Level Level of Assistance Standby Assistance,Verbal Cues [place] March Water Level Chest Level Level of Assistance Standby Assistance,Verbal Cues Comments large ankle floats Marching Water Level Chest Level Comments fwd and back, large ankle floats Backwards Water Level Chest Level Level of Assistance Standby Assistance,Verbal Cues Comments large ankle floats [place] Water Level Chest Level Comments large ankle floats Lower Extremity Exercises SLS Reps/Duration 2x20 tiburcio hip f/e;ab/ad;circles Details hh on wall Body Position Standing Water Level Chest Level Reps/Duration 20x B Comments large ankle floats Lower Extremity Stretches TFL Details at wall Body Position Standing Water Level Chest Level Equipment large ankle floats tiburcio Reps/Duration 2 x 30' B quads, hip flexors Details at wall Body Position Standing Water Level Waist Level Equipment large ankle floats tiburcio Reps/Duration 2 x 30 B [place] Activities [place] Activities Bicycle,Bicycle Backwards, Cross [place],Running,Sit Kicks Equipment flotation belt Duration 10 min PT-OP-T Assessment and Plan Start: 07/05/21 15:54 Freq: Status: Active Protocol: Document 10/24/21 15:11 [facility] (Rec: 10/24/21 15:18 [facility] [id number]) Physical Therapy Assessment Goals ambulation Short Term Goal (STG) Pt will be able to amb short distances w/o AD w/good gait mechanics 10/12-can amb w/cane short and long distances but still requires external support STG Duration 10/29/21 Revenue Manager Goal (LTG) Pt will be able to amb 2 miles without AD w/o inc pian greater than 2/10. LTG Duration 12/07/21 Three Impairment Decreased function per LEFS score of 17 Impairment LEFS score of 17 indicates 60- 79% impaired. Short Term Goal (STG) Improve function per LEFS score of no less than 32 (40- 59% impaired) 3/8-n/t STG Duration achieved to 39/80 Revenue Manager Goal (LTG) Improve function per LEFS score no less than 63 (1-19% impaired). LTG Duration 12/02/21 Two Impairment Not able to ambulate without use of assistive device Impairment Gait 76' with FWW/NWBing LLE prior to fatigue. Short Term Goal (STG) Pt will be able to ambulate 100' with FWW with use of an assistive device and greater WBing of LLE when cleared for partial WBing of LLE. 08/23/21: progressinft maintaining PWB 20% of BW w/ FWW, step to gait. STG Duration achieved 09/06 Revenue Manager Goal (LTG) Pt will be able to tolerate no less than 100' gait without use of assistive device when cleared for full WBing of LLE. 08/23/21: progressing 155ft maintaining PWB 20% of BW w/ FWW, step to gait. LTG Duration achieved 09/06 One Impairment Lacks appropriate self care HEP Short Term Goal (STG) Pt will be independent in a self care HEP to promote ongoing L knee/hip strengthening/ROM and core stabilization. 09/06-advancinga s able STG Duration achieved progressing as able Revenue Manager Goal (LTG) Pt will have at least 4+/5 LE MMT in all planes B to show improved stability of hip and knee to improve ability to mobilize int he community 10/12-improving LTG Duration 12/07 Assessment Summary Assessment Pt had improved VCT from 1/5 to 4/5 after adding 1/8 in insert to L shoe. She can get to close to level with pelvis in mirro w/cues for LLE position & for dec pelvis & trunk rotations. She imrpoved w/wt shifts in standing.S he cannot do standing hip hikes at this time w/o signficiant compensation. Physical Therapy Plan Frequency and Duration Frequency of Treatment 2x/Week Duration of Treatment 3 months Plan of Care Start Date 09/06/21 Plan of Care End Date 12/07/21 Next Visit Focus/Plan Next Note Type Treatment Note Next Visit Plan Clinic: PNF post and ant dep to work on pelvic stability & hip mobility; cont to work on quad engagment & working on step ups and squats Aquatic: continue gait training, strengthening quads and hips, balance, emphasis on core stab with all.
--- NOTE | 2021-11-01 13:45 | PT.OTN ---
Current Diagnoses Stiffness of right knee, not elsewhere classified (11/01/21) Muscle weakness (generalized) (11/01/21) Unsteadiness on feet (11/01/21) Fall on same level, unspecified, initial encounter (11/01/21) Presence of unspecified artificial knee joint (11/01/21) Physical Therapy Treatment Note PT-OP-A Visit Information Start: 07/05/21 15:54 Freq: Status: Active Protocol: Document 11/01/21 13:02 SP (Rec: 11/01/21 13:47 SP [id number]) Out-Patient Physical Therapy Visit Information Visit Information Visit Type Treatment Note Visit Start Time 13:02 Visit Stop Time 13:45 Total Visit Minutes 43 Visit Number 24 Number of HUMAN FACTORS SCIENTIST Visits 1 Evaluation Information Evaluation Date 07/11/21 Precautions Precautions WBAT PT-OP-B Current Condition Start: 07/05/21 15:54 Freq: Status: Active Protocol: Document 07/11/21 15:06 LRN (Rec: 07/11/21 18:30 LRN [id number]) Current Condition History of Current Condition Onset Date 06/28/21 Current Complaints L History of Current Condition Slipper on ice landing on R hip with L leg behind resulting in L distal femur fracture. Pt is 11 days s/p ORIF 06/30/21. PRECAUTIONS: TTWB LLE, knee imimobilizer for comfort, ROM as tolerated L knee. Pt has been doing a HEP (QS, GS, heel slides, assisted hip AB) 2x/day. Pt denies pain except in neck at nighttime during sleep. PMH: Tiburcio TKA, R forefoot fusion, fx R wrist. Prior Treatments and Tests HEP issued post-op. Future Testing and Treatments Planned Pt surgical follow up in 2 days. Treatment Goals Patient/Caregiver Goals Pt goal is to be able to get up and walk when she wants. Pt is agreeable to goal of walkling without the use of an assistive device. Prior Functional Status Baseline Function- ADL's Independent Baseline Function- Mobility Independent Baseline Function- Gait Independent w/o assistive device Baseline Function- Recreation/Hobbies Walked 1.5 miles daily. Hiked with walking pole. Current Functional Impairments (Reported) Functional Limitations- ADL's Wheelchair and walker bound with TTWBing LLE for gait using FWW. Functional Limitations- Mobility/Gait Walked 68' prior to fatigue from UE's. Functional Limitations- Recreation/ Returning to exercise gym for Hobbies neck/shoulder/upper body exercise. Personal Factors Other Personal Factors That May Effect Lives in [place], spouse Therapy/Recovery Marycruz Vega is physical therapy patient at same clinic . Tiburcio TKA, L forefoot fused, herniated disc with discectomy ?L4-L5. Osteopenia. PT-OP-C Subjective Start: 07/05/21 15:54 Freq: Status: Active Protocol: Document 11/01/21 13:02 SP (Rec: 11/01/21 13:47 SP [id number]) OP-PT Subjective Patient Comments Patient Comments Pt reports stil hard time feeling glut and not walking over even surfaces without cane. Pt states the 1/8 lift in L shoes helps butonly able to wear on blue sneakers because of still gets swelling and lift causes foot to be tight in shoe so limited what shoes can wear in. PT-OP-G Mobility & Gait Start: 07/05/21 15:54 Freq: Status: Active Protocol: Document 07/11/21 15:06 LRN (Rec: 07/11/21 18:30 LRN [id number]) OP Mobility Evaluation Bed Mobility Supine to and from Sit Independent Transfers Sit to Stand Independent with FWW Bed to Chair Transfers Independent with FWW Car Transfers Independent Wheelchair Management Type of Wheelchair Normal Assessment Details Pt able to self propel and maneuver forward, backward and turn around independently. OP Gait Assessment Gait Gait Assistance Required: Independent Distance (Feet) 76 Able to Maintain Weight Bearing Status No During Gait Assistive Devices Assistive Device Front Wheeled Walker Gait Deviations General Gait Pattern Step-to Gait Comments Gait Comments Pt is TTWB LLE. PT-OP-K Range of Motion Start: 07/05/21 15:54 Freq: Status: Active Protocol: Document 10/12/21 13:46 LR (Rec: 10/12/21 14:51 [facility] [id number]) Hip Goniometric Range of Motion Hip Left Active Flexion w/Knee Flexed 115 Abduction 22 Knee Goniometric Range of Motion Knee Left Flexion Active (degrees) 116 Extension Active (degrees) 0 PT-OP-M Strength Start: 07/05/21 15:54 Freq: Status: Active Protocol: Document 10/12/21 13:46 LR (Rec: 10/12/21 14:51 [facility] [id number]) Hip Strength Hip Manual Muscle Testing Left Flexion (L2) 4 Good Extension (S1) 3+ Fair+ Abduction 3+ Fair+ Adduction 4- Good- External Rotation 3+ Fair+ Internal Rotation 3+ Fair+ Right Flexion (L2) 5 Normal Extension (S1) 3+ Fair+ Abduction 4+ Good+ Adduction 4+ Good+ External Rotation 4+ Good+ Internal Rotation 4+ Good+ Knee Strength Knee Manual Muscle Testing Right Flexion (S2) 5 Normal Extension (L3) 5 Normal Left Flexion (S2) 4+ Good+ Extension (L3) 3+ Fair+ Ankle/Foot Strength Ankle and Foot Manual Muscle Testing Right Dorsiflexion (L4) 5 Normal Plantarflexion (S1) 5 Normal Left Dorsiflexion (L4) 5 Normal Plantarflexion (S1) 5 Normal Comments PF tested seated PT-OP-Q Treatments Start: 07/05/21 15:54 Freq: Status: Active Protocol: Document 11/01/21 13:02 SP (Rec: 11/01/21 13:47 SP [id number]) Therapeutic Exercises Supine Exercises bridge Supine Exercise Name 1. w/alt august 31. SL bridge ( improved L glut fac lift/ lower) Side bilateral Reps/Minutes 10 Comments cues for slow and controlled RLE lower w/ LLE glut fac and no pelvis drop clamshell Supine Exercise Name reviewed Side left Resistance TB #3 Reps/Minutes 5reps x2 Comments improved posterior prox femur pressure during abd Standing Exercises side stepping Resistance AROM Equipment Used reflection in window hip hikes Standing Exercise Name attempted on step and at wall w/ball at side Resistance 11/01/21: used 2step and floor Comments required max cues and pt had difficulty w/getting hip hike motion into ext Gait Training Gait Activity wt shifts Distance/Duration 10 ea Comments 1.wt shift to LLE then RLE w/ focus on wt acceptance and push off progressed to w/step through B 2. SLS into RLE front step to next step in mirror 3. Add into next tx (11/01/21) didn/t do: 1/2 kneel wt shift to LLE for post dep on LLE gait Comments no AD LLE hip abd fac sequencing and full LLE wt acceptance and toe off terminal extension, cued even cadance which improved level pelvis leaving. PT-OP-S Aquatic Treatment Start: 08/26/21 14:30 Freq: Status: Active Protocol: Document 10/19/21 17:29 SAK (Rec: 10/19/21 17:38 SAK [id number]) Aquatics Treatment Pool Entry/Exit Pool Entry/Exit Method Lift Assistance Standby Assistance Water Walking fast walking Water Level Chest Level Comments large ankle floats march kick Water Level Chest Level Walking Equipment large ankle floats Level of Assistance Standby Assistance,Verbal Cues step-ups Water Level Chest Level Comments 10x2, 8 boxes, cues for gluteal engagement Lunge Walk Water Level Waist Level Level of Assistance Standby Assistance,Verbal Cues [place] March Water Level Chest Level Level of Assistance Standby Assistance,Verbal Cues Comments large ankle floats Marching Water Level Chest Level Comments fwd and back, large ankle floats Backwards Water Level Chest Level Level of Assistance Standby Assistance,Verbal Cues Comments large ankle floats [place] Water Level Chest Level Comments large ankle floats Lower Extremity Exercises SLS Reps/Duration 2x20 tiburcio hip f/e;ab/ad;circles Details hh on wall Body Position Standing Water Level Chest Level Reps/Duration 20x B Comments large ankle floats Lower Extremity Stretches TFL Details at wall Body Position Standing Water Level Chest Level Equipment large ankle floats tiburcio Reps/Duration 2 x 30' B quads, hip flexors Details at wall Body Position Standing Water Level Waist Level Equipment large ankle floats tiburcio Reps/Duration 2 x 30 B [place] Activities [place] Activities Bicycle,Bicycle Backwards, Cross [place],Running,Sit Kicks Equipment flotation belt Duration 10 min PT-OP-T Assessment and Plan Start: 07/05/21 15:54 Freq: Status: Active Protocol: Document 11/01/21 13:02 SP (Rec: 11/01/21 13:47 SP [id number]) Physical Therapy Assessment Goals ambulation Short Term Goal (STG) Pt will be able to amb short distances w/o AD w/good gait mechanics 10/12-can amb w/cane short and long distances but still requires external support STG Duration 10/29/21 Correction Goal (LTG) Pt will be able to amb 2 miles without AD w/o inc pian greater than 2/10. LTG Duration 12/07/21 Three Impairment Decreased function per LEFS score of 17 Impairment LEFS score of 17 indicates 60- 79% impaired. Short Term Goal (STG) Improve function per LEFS score of no less than 32 (40- 59% impaired) 09/06-n/t STG Duration achieved to 39/80 Correction Goal (LTG) Improve function per LEFS score no less than 63 (1-19% impaired). LTG Duration 12/02/21 Two Impairment Not able to ambulate without use of assistive device Impairment Gait 76' with FWW/NWBing LLE prior to fatigue. Short Term Goal (STG) Pt will be able to ambulate 100' with FWW with use of an assistive device and greater WBing of LLE when cleared for partial WBing of LLE. 08/23/21: progressinft maintaining PWB 20% of BW w/ FWW, step to gait. STG Duration achieved 09/06 Pastry Supervisor Goal (LTG) Pt will be able to tolerate no less than 100' gait without use of assistive device when cleared for full WBing of LLE. 08/23/21: progressing 155ft maintaining PWB 20% of BW w/ FWW, step to gait. LTG Duration achieved 09/06 One Impairment Lacks appropriate self care HEP Short Term Goal (STG) Pt will be independent in a self care HEP to promote ongoing L knee/hip strengthening/ROM and core stabilization. 09/06-advancinga s able STG Duration achieved progressing as able Pastry Supervisor Goal (LTG) Pt will have at least 4+/5 LE MMT in all planes B to show improved stability of hip and knee to improve ability to mobilize int he community 10/12-improving LTG Duration 12/07 Assessment Summary Assessment Pt improved L glut fac engagement and post step ups, extra time spent side stepping w/ mirror and book on head then carry over away from rail . Pt better understanding of scapular complex and core facilitaiton to decrease SB and rotation compensations with focus. Instructed not to use TB side stepping with rehab trainer due to increases compenstaions and use mirror for self feedback. Pt improved level pelvis, contact cues for SL bridge and pelvic alignment stability, better lift, more cues for eccentric lowering, SL better effort and demo than bridge marching. Physical Therapy Plan Frequency and Duration Frequency of Treatment 2x/Week Duration of Treatment 3 months Plan of Care Start Date 09/06/21 Plan of Care End Date 12/07/21 Therapeutic Interventions Therapeutic Interventions Aquatic Therapy,Balance Training,Gait Training,Home Exercise Program,Joint Mobilizations,Manual Therapy, Neuromuscular Re-education, Patient/Caregiver Education, Self-Care/Home Management,Soft Tissue Mobilization,Taping, Therapeutic Activities, Therapeutic Exercises Modalities Cold Pack/Ice Massage,Electric Stimulation,Hot Packs, Ultrasound Next Visit Focus/Plan Next Note Type Treatment Note Next Visit Plan Clinic: PNF post and ant dep to work on pelvic stability & hip mobility; cont to work on quad engagment & working on step ups and squats Aquatic: continue gait training, strengthening quads and hips, balance, emphasis on core stab with all.
--- NOTE | 2021-11-07 14:19 | PT.OTN ---
Current Diagnoses Stiffness of right knee, not elsewhere classified (11/07/21) Muscle weakness (generalized) (11/07/21) Unsteadiness on feet (11/07/21) Fall on same level, unspecified, initial encounter (11/07/21) Presence of unspecified artificial knee joint (11/07/21) Physical Therapy Treatment Note PT-OP-A Visit Information Start: 07/05/21 15:54 Freq: Status: Active Protocol: Document 11/07/21 13:48 LR (Rec: 11/07/21 14:19 [facility] [id number]) Out-Patient Physical Therapy Visit Information Visit Information Visit Type Treatment Note Visit Note 12/09 Visit Start Time 13:01 Visit Stop Time 13:44 Total Visit Minutes 43 Visit Number 25 Number of RN CORRECTIONS Visits 0 PT-OP-B Current Condition Start: 07/05/21 15:54 Freq: Status: Active Protocol: Document 07/11/21 15:06 LRN (Rec: 07/11/21 18:30 LRN [id number]) Current Condition History of Current Condition Onset Date 06/28/21 Current Complaints L History of Current Condition Slipper on ice landing on R hip with L leg behind resulting in L distal femur fracture. Pt is 11 days s/p ORIF 06/30/21. PRECAUTIONS: TTWB LLE, knee imimobilizer for comfort, ROM as tolerated L knee. Pt has been doing a HEP (QS, GS, heel slides, assisted hip AB) 2x/day. Pt denies pain except in neck at nighttime during sleep. PMH: Tiburcio TKA, R forefoot fusion, fx R wrist. Prior Treatments and Tests HEP issued post-op. Future Testing and Treatments Planned Pt surgical follow up in 2 days. Treatment Goals Patient/Caregiver Goals Pt goal is to be able to get up and walk when she wants. Pt is agreeable to goal of walkling without the use of an assistive device. Prior Functional Status Baseline Function- ADL's Independent Baseline Function- Mobility Independent Baseline Function- Gait Independent w/o assistive device Baseline Function- Recreation/Hobbies Walked 1.5 miles daily. Hiked with walking pole. Current Functional Impairments (Reported) Functional Limitations- ADL's Wheelchair and walker bound with TTWBing LLE for gait using FWW. Functional Limitations- Mobility/Gait Walked 68' prior to fatigue from UE's. Functional Limitations- Recreation/ Returning to exercise gym for Hobbies neck/shoulder/upper body exercise. Personal Factors Other Personal Factors That May Effect Lives in [place], spouse Therapy/Recovery Marycruz Vega is physical therapy patient at same clinic . Tiburcio TKA, L forefoot fused, herniated disc with discectomy ?L4-L5. Osteopenia. PT-OP-C Subjective Start: 07/05/21 15:54 Freq: Status: Active Protocol: Document 11/07/21 13:48 [facility] (Rec: 11/07/21 14:19 [facility] [id number]) OP-PT Subjective Patient Comments Patient Comments Pt reports she saw her MD and they sent her to schedule w/ ortho in [place]. She is scheduled at the beginning of November for this MD to look at hip. She can go for short times w/o cane but is unsure how much to try before limping PT-OP-G Mobility & Gait Start: 07/05/21 15:54 Freq: Status: Active Protocol: Document 07/11/21 15:06 LR (Rec: 07/11/21 18:30 [facility] [id number]) OP Mobility Evaluation Bed Mobility Supine to and from Sit Independent Transfers Sit to Stand Independent with FWW Bed to Chair Transfers Independent with FWW Car Transfers Independent Wheelchair Management Type of Wheelchair Normal Assessment Details Pt able to self propel and maneuver forward, backward and turn around independently. OP Gait Assessment Gait Gait Assistance Required: Independent Distance (Feet) 76 Able to Maintain Weight Bearing Status No During Gait Assistive Devices Assistive Device Front Wheeled Walker Gait Deviations General Gait Pattern Step-to Gait Comments Gait Comments Pt is TTWB LLE. PT-OP-K Range of Motion Start: 07/05/21 15:54 Freq: Status: Active Protocol: Document 10/12/21 13:46 [facility] (Rec: 10/12/21 14:51 [facility] [id number]) Hip Goniometric Range of Motion Hip Left Active Flexion w/Knee Flexed 115 Abduction 22 Knee Goniometric Range of Motion Knee Left Flexion Active (degrees) 116 Extension Active (degrees) 0 PT-OP-M Strength Start: 07/05/21 15:54 Freq: Status: Active Protocol: Document 10/12/21 13:46 [facility] (Rec: 10/12/21 14:51 [facility] [id number]) Hip Strength Hip Manual Muscle Testing Left Flexion (L2) 4 Good Extension (S1) 3+ Fair+ Abduction 3+ Fair+ Adduction 4- Good- External Rotation 3+ Fair+ Internal Rotation 3+ Fair+ Right Flexion (L2) 5 Normal Extension (S1) 3+ Fair+ Abduction 4+ Good+ Adduction 4+ Good+ External Rotation 4+ Good+ Internal Rotation 4+ Good+ Knee Strength Knee Manual Muscle Testing Right Flexion (S2) 5 Normal Extension (L3) 5 Normal Left Flexion (S2) 4+ Good+ Extension (L3) 3+ Fair+ Ankle/Foot Strength Ankle and Foot Manual Muscle Testing Right Dorsiflexion (L4) 5 Normal Plantarflexion (S1) 5 Normal Left Dorsiflexion (L4) 5 Normal Plantarflexion (S1) 5 Normal Comments PF tested seated PT-OP-Q Treatments Start: 07/05/21 15:54 Freq: Status: Active Protocol: Document 11/07/21 13:48 [facility] (Rec: 11/07/21 14:19 [facility] [id number]) Gait Training Gait Activity gait Comments 1. amb w/o AD working on more fluid gait and not locking knee 2x50ft 2. gait w/1 hiking pole 2x50ft Manual Therapy Treatment Soft Tissue Mobilization quad Body Location L quad (med border VMO, lat VL ) Mobilization Type Myofascial Release,Rolling, Strumming Intensity/Depth Moderate Body Position Supine Comments w/quad set Neuro Re-Education Treatment Balance Activities hurdles Comments 1. fwd over hurdles (6) x8 2. side step (B) x2 ea SLS Comments 1. alt august B x15 2. SLS w/use of rail B PT-OP-S Aquatic Treatment Start: 08/26/21 14:30 Freq: Status: Active Protocol: Document 10/19/21 17:29 [facility] (Rec: 10/19/21 17:38 SAK [id number]) Aquatics Treatment Pool Entry/Exit Pool Entry/Exit Method Lift Assistance Standby Assistance Water Walking fast walking Water Level Chest Level Comments large ankle floats march kick Water Level Chest Level Walking Equipment large ankle floats Level of Assistance Standby Assistance,Verbal Cues step-ups Water Level Chest Level Comments 10x2, 8 boxes, cues for gluteal engagement Lunge Walk Water Level Waist Level Level of Assistance Standby Assistance,Verbal Cues [place] March Water Level Chest Level Level of Assistance Standby Assistance,Verbal Cues Comments large ankle floats Marching Water Level Chest Level Comments fwd and back, large ankle floats Backwards Water Level Chest Level Level of Assistance Standby Assistance,Verbal Cues Comments large ankle floats [place] Water Level Chest Level Comments large ankle floats Lower Extremity Exercises SLS Reps/Duration 2x20 tiburcio hip f/e;ab/ad;circles Details hh on wall Body Position Standing Water Level Chest Level Reps/Duration 20x B Comments large ankle floats Lower Extremity Stretches TFL Details at wall Body Position Standing Water Level Chest Level Equipment large ankle floats tiburcio Reps/Duration 2 x 30' B quads, hip flexors Details at wall Body Position Standing Water Level Waist Level Equipment large ankle floats tiburcio Reps/Duration 2 x 30 B [place] Activities [place] Activities Bicycle,Bicycle Backwards, [place],Running,Sit Kicks Equipment flotation belt Duration 10 min PT-OP-T Assessment and Plan Start: 07/05/21 15:54 Freq: Status: Active Protocol: Document 11/07/21 13:48 [facility] (Rec: 11/07/21 14:19 [facility] [id number]) Physical Therapy Assessment Goals ambulation Short Term Goal (STG) Pt will be able to amb short distances w/o AD w/good gait mechanics 10/12-can amb w/cane short and long distances but still requires external support STG Duration 10/29/21 Spudder Goal (LTG) Pt will be able to amb 2 miles without AD w/o inc pian greater than 2/10. LTG Duration 12/07/21 Three Impairment Decreased function per LEFS score of 17 Impairment LEFS score of 17 indicates 60- 79% impaired. Short Term Goal (STG) Improve function per LEFS score of no less than 32 (40- 59% impaired) 09/06-n/t STG Duration achieved to 39/80 Spudder Goal (LTG) Improve function per LEFS score no less than 63 (1-19% impaired). LTG Duration 12/02/21 Two Impairment Not able to ambulate without use of assistive device Impairment Gait 76' with FWW/NWBing LLE prior to fatigue. Short Term Goal (STG) Pt will be able to ambulate 100' with FWW with use of an assistive device and greater WBing of LLE when cleared for partial WBing of LLE. 08/23/21: progressinft maintaining PWB 20% of BW w/ FWW, step to gait. STG Duration achieved 09/06 Spudder Goal (LTG) Pt will be able to tolerate no less than 100' gait without use of assistive device when cleared for full WBing of LLE. 08/23/21: progressing 155ft maintaining PWB 20% of BW w/ FWW, step to gait. LTG Duration achieved 09/06 One Impairment Lacks appropriate self care HEP Short Term Goal (STG) Pt will be independent in a self care HEP to promote ongoing L knee/hip strengthening/ROM and core stabilization. 09/06-advancinga s able STG Duration achieved progressing as able Spudder Goal (LTG) Pt will have at least 4+/5 LE MMT in all planes B to show improved stability of hip and knee to improve ability to mobilize int he community 10/12-improving LTG Duration 12/07 Assessment Summary Assessment Pt did well with gait w/ training and after all the exercises had improved gait w/ o AD. She does still have some tightness w/ borders of quad. Physical Therapy Plan Frequency and Duration Frequency of Treatment 2x/Week Duration of Treatment 3 months Plan of Care Start Date 09/06/21 Plan of Care End Date 12/07/21 Next Visit Focus/Plan Next Note Type Treatment Note Next Visit Plan cont to work on hip (glute) stability and quad engagement L and start doing more w/ uneven surfaces to work on balance
--- NOTE | 2021-11-09 17:28 | PT.OTN ---
Current Diagnoses Stiffness of right knee, not elsewhere classified (11/09/21) Muscle weakness (generalized) (11/09/21) Unsteadiness on feet (11/09/21) Fall on same level, unspecified, initial encounter (11/09/21) Presence of unspecified artificial knee joint (11/09/21) Physical Therapy Treatment Note PT-OP-A Visit Information Start: 07/05/21 15:54 Freq: Status: Active Protocol: Document 11/09/21 10:15 SAK (Rec: 11/10/21 17:23 SAK [id number]) Out-Patient Physical Therapy Visit Information Visit Information Visit Type Aquatic Treatment Note Visit Note 01/08 Visit Start Time 10:15 Visit Stop Time 11:00 Total Visit Minutes 45 Visit Number 26 Number of [facility] DIRECTOR Visits 0 Evaluation Information Evaluation Date 07/11/21 PT-OP-B Current Condition Start: 07/05/21 15:54 Freq: Status: Active Protocol: Document 07/11/21 15:06 LRN (Rec: 07/11/21 18:30 LRN [id number]) Current Condition History of Current Condition Onset Date 06/28/21 Current Complaints L History of Current Condition Slipper on ice landing on R hip with L leg behind resulting in L distal femur fracture. Pt is 11 days s/p ORIF 06/30/21. PRECAUTIONS: TTWB LLE, knee imimobilizer for comfort, ROM as tolerated L knee. Pt has been doing a HEP (QS, GS, heel slides, assisted hip AB) 2x/day. Pt denies pain except in neck at nighttime during sleep. PMH: Tiburcio TKA, R forefoot fusion, fx R wrist. Prior Treatments and Tests HEP issued post-op. Future Testing and Treatments Planned Pt surgical follow up in 2 days. Treatment Goals Patient/Caregiver Goals Pt goal is to be able to get up and walk when she wants. Pt is agreeable to goal of walkling without the use of an assistive device. Prior Functional Status Baseline Function- ADL's Independent Baseline Function- Mobility Independent Baseline Function- Gait Independent w/o assistive device Baseline Function- Recreation/Hobbies Walked 1.5 miles daily. Hiked with walking pole. Current Functional Impairments (Reported) Functional Limitations- ADL's Wheelchair and walker bound with TTWBing LLE for gait using FWW. Functional Limitations- Mobility/Gait Walked 68' prior to fatigue from UE's. Functional Limitations- Recreation/ Returning to exercise gym for Hobbies neck/shoulder/upper body exercise. Personal Factors Other Personal Factors That May Effect Lives in [place], spouse Therapy/Recovery Marycruz Vega is physical therapy patient at same clinic . Tiburcio TKA, L forefoot fused, herniated disc with discectomy ?L4-L5. Osteopenia. PT-OP-C Subjective Start: 07/05/21 15:54 Freq: Status: Active Protocol: Document 11/09/21 10:15 SAK (Rec: 11/10/21 17:23 SAK [id number]) OP-PT Subjective Patient Comments Patient Comments Patient states she doesn't feel her leg will always hold her, fearful of falling. Limited recently by hip pain, will be discussing with orthopedic physician. PT-OP-G Mobility & Gait Start: 07/05/21 15:54 Freq: Status: Active Protocol: Document 07/11/21 15:06 LRN (Rec: 07/11/21 18:30 LRN [id number]) OP Mobility Evaluation Bed Mobility Supine to and from Sit Independent Transfers Sit to Stand Independent with FWW Bed to Chair Transfers Independent with FWW Car Transfers Independent Wheelchair Management Type of Wheelchair Normal Assessment Details Pt able to self propel and maneuver forward, backward and turn around independently. OP Gait Assessment Gait Gait Assistance Required: Independent Distance (Feet) 76 Able to Maintain Weight Bearing Status No During Gait Assistive Devices Assistive Device Front Wheeled Walker Gait Deviations General Gait Pattern Step-to Gait Comments Gait Comments Pt is TTWB LLE. PT-OP-K Range of Motion Start: 07/05/21 15:54 Freq: Status: Active Protocol: Document 10/12/21 13:46 [facility] (Rec: 10/12/21 14:51 [facility] [id number]) Hip Goniometric Range of Motion Hip Left Active Flexion w/Knee Flexed 115 Abduction 22 Knee Goniometric Range of Motion Knee Left Flexion Active (degrees) 116 Extension Active (degrees) 0 PT-OP-M Strength Start: 07/05/21 15:54 Freq: Status: Active Protocol: Document 10/12/21 13:46 [facility] (Rec: 10/12/21 14:51 [facility] [id number]) Hip Strength Hip Manual Muscle Testing Left Flexion (L2) 4 Good Extension (S1) 3+ Fair+ Abduction 3+ Fair+ Adduction 4- Good- External Rotation 3+ Fair+ Internal Rotation 3+ Fair+ Right Flexion (L2) 5 Normal Extension (S1) 3+ Fair+ Abduction 4+ Good+ Adduction 4+ Good+ External Rotation 4+ Good+ Internal Rotation 4+ Good+ Knee Strength Knee Manual Muscle Testing Right Flexion (S2) 5 Normal Extension (L3) 5 Normal Left Flexion (S2) 4+ Good+ Extension (L3) 3+ Fair+ Ankle/Foot Strength Ankle and Foot Manual Muscle Testing Right Dorsiflexion (L4) 5 Normal Plantarflexion (S1) 5 Normal Left Dorsiflexion (L4) 5 Normal Plantarflexion (S1) 5 Normal Comments PF tested seated PT-OP-Q Treatments Start: 07/05/21 15:54 Freq: Status: Active Protocol: Document 11/07/21 13:48 [facility] (Rec: 11/07/21 14:19 [facility] [id number]) Gait Training Gait Activity gait Comments 1. amb w/o AD working on more fluid gait and not locking knee 2x50ft 2. gait w/1 hiking pole 2x50ft Manual Therapy Treatment Soft Tissue Mobilization quad Body Location L quad (med border VMO, lat VL ) Mobilization Type Myofascial Release,Rolling, Strumming Intensity/Depth Moderate Body Position Supine Comments w/quad set Neuro Re-Education Treatment Balance Activities hurdles Comments 1. fwd over hurdles (6) x8 2. side step (B) x2 ea SLS Comments 1. alt march B x15 2. SLS w/use of rail B PT-OP-S Aquatic Treatment Start: 08/26/21 14:30 Freq: Status: Active Protocol: Document 11/09/21 10:[address] [facility] (Rec: 11/10/21 17:[address] [facility] [id number]) Aquatics Treatment Pool Entry/Exit Pool Entry/Exit Method Stairs Assistance Standby Assistance Comments tiburcio UE support Water Walking fast walking Water Level Chest Level Comments large ankle floats march kick Water Level Chest Level Walking Equipment large ankle floats Level of Assistance Standby Assistance,Verbal Cues step-ups Water Level Waist Level Comments 10x2, 8 boxes, cues for gluteal engagement [place] March Water Level Chest Level Level of Assistance Standby Assistance,Verbal Cues Comments large ankle floats Marching Water Level Chest Level Comments fwd and back, large ankle floats Backwards Water Level Chest Level Level of Assistance Standby Assistance,Verbal Cues Comments large ankle floats Forwards Water Level Chest Level Comments large ankle floats Lower Extremity Exercises reverse squat Water Level Chest Level Reps/Duration 10x Comments bilateral large ankle floats noodle push down Body Position Standing Water Level Chest Level Equipment Large Noodle SLS Reps/Duration 2x20 tiburcio HS curl Body Position Standing Water Level Chest Level Reps/Duration 15 x 2 B hip f/e;ab/ad;circles Details hh on wall (min) Body Position Standing Water Level Chest Level Reps/Duration 20x B Comments large ankle floats Lower Extremity Stretches TFL Details at wall Body Position Standing Water Level Chest Level Equipment large ankle floats tiburcio Reps/Duration 2 x 30' B quads, hip flexors Details at wall Body Position Standing Water Level Waist Level Equipment large ankle floats tiburcio Reps/Duration 2 x 30 B Balance SLS Reps/Duration 2x30 tiburcio [place] Activities [place] Activities Running Other Activities deep water hang with blue [place]uma float, waist float, 5# ankle weights Equipment flotation belt Duration 15 min PT-OP-T Assessment and Plan Start: 07/05/21 15:54 Freq: Status: Active Protocol: Document 11/09/21 10:[address] [facility] (Rec: 11/10/21 17:[address] [facility] [id number]) Physical Therapy Assessment Goals ambulation Short Term Goal (STG) Pt will be able to amb short distances w/o AD w/good gait mechanics 10/12-can amb w/cane short and long distances but still requires external support STG Duration 10/29/21 Immunohematologist Goal (LTG) Pt will be able to amb 2 miles without AD w/o inc pian greater than 2/10. LTG Duration 12/07/21 Three Impairment Decreased function per LEFS score of 17 Impairment LEFS score of 17 indicates 60- 79% impaired. Short Term Goal (STG) Improve function per LEFS score of no less than 32 (40- 59% impaired) 09/06-n/t STG Duration achieved to 39/80 Immunohematologist Goal (LTG) Improve function per LEFS score no less than 63 (1-19% impaired). LTG Duration 12/02/21 Two Impairment Not able to ambulate without use of assistive device Impairment Gait 76' with FWW/NWBing LLE prior to fatigue. Short Term Goal (STG) Pt will be able to ambulate 100' with FWW with use of an assistive device and greater WBing of LLE when cleared for partial WBing of LLE. 08/23/21: progressinft maintaining PWB 20% of BW w/ FWW, step to gait. STG Duration achieved 09/06 Long-Term Goal (LTG) Pt will be able to tolerate no less than 100' gait without use of assistive device when cleared for full WBing of LLE. 08/23/21: progressing 155ft maintaining PWB 20% of BW w/ FWW, step to gait. LTG Duration achieved 09/06 One Impairment Lacks appropriate self care HEP Short Term Goal (STG) Pt will be independent in a self care HEP to promote ongoing L knee/hip strengthening/ROM and core stabilization. 09/06-advancinga s able STG Duration achieved progressing as able Immunohematologist Goal (LTG) Pt will have at least 4+/5 LE MMT in all planes B to show improved stability of hip and knee to improve ability to mobilize int he community 10/12-improving LTG Duration 12/07 Assessment Summary Assessment Able to do single leg squad at waist level (50% WB), difficulty at approx 40% WB. Gait training with ankle floats for increased challenge , able to do LE strengthening with minimal UE support, step- ups at 50% weight bearing on 8 box with only CGA support for balance. Physical Therapy Plan Frequency and Duration Frequency of Treatment 2x/Week Duration of Treatment 3 months Plan of Care Start Date 09/06/21 Plan of Care End Date 12/07/21 Therapeutic Interventions Therapeutic Interventions Aquatic Therapy,Balance Training,Gait Training,Home Exercise Program,Joint Mobilizations,Manual Therapy, Neuromuscular Re-education, Patient/Caregiver Education, Self-Care/Home Management,Soft Tissue Mobilization,Taping, Therapeutic Activities, Therapeutic Exercises Modalities Cold Pack/Ice Massage,Electric Stimulation,Hot Packs, Ultrasound Next Visit Focus/Plan Next Note Type Treatment Note Next Visit Plan cont to work on hip (glute) stability and quad engagement L and start doing more w/ uneven surfaces to work on balance; clinic and aquatic- based
--- NOTE | 2021-11-14 15:26 | PT.OTN ---
Current Diagnoses Stiffness of right knee, not elsewhere classified (11/14/21) Muscle weakness (generalized) (11/14/21) Unsteadiness on feet (11/14/21) Fall on same level, unspecified, initial encounter (11/14/21) Presence of unspecified artificial knee joint (11/14/21) Physical Therapy Treatment Note PT-OP-A Visit Information Start: 07/05/21 15:54 Freq: Status: Active Protocol: Document 11/14/21 15:06 LJ (Rec: 11/14/21 15:26 LJ [id number]) Out-Patient Physical Therapy Visit Information Visit Information Visit Type Aquatic Treatment Note Visit Note 02/08 Visit Start Time 12:30 Visit Stop Time 01:15 Total Visit Minutes 45 Visit Number 27 Number of FOOD BEVERAGE MANAGER Visits 1 Evaluation Information Evaluation Date 07/11/21 PT-OP-B Current Condition Start: 07/05/21 15:54 Freq: Status: Active Protocol: Document 07/11/21 15:06 LRN (Rec: 07/11/21 18:30 LRN [id number]) Current Condition History of Current Condition Onset Date 06/28/21 Current Complaints L History of Current Condition Slipper on ice landing on R hip with L leg behind resulting in L distal femur fracture. Pt is 11 days s/p ORIF 06/30/21. PRECAUTIONS: TTWB LLE, knee imimobilizer for comfort, ROM as tolerated L knee. Pt has been doing a HEP (QS, GS, heel slides, assisted hip AB) 2x/day. Pt denies pain except in neck at nighttime during sleep. PMH: Cori TKA, R forefoot fusion, fx R wrist. Prior Treatments and Tests HEP issued post-op. Future Testing and Treatments Planned Pt surgical follow up in 2 days. Treatment Goals Patient/Caregiver Goals Pt goal is to be able to get up and walk when she wants. Pt is agreeable to goal of walkling without the use of an assistive device. Prior Functional Status Baseline Function- ADL's Independent Baseline Function- Mobility Independent Baseline Function- Gait Independent w/o assistive device Baseline Function- Recreation/Hobbies Walked 1.5 miles daily. Hiked with walking pole. Current Functional Impairments (Reported) Functional Limitations- ADL's Wheelchair and walker bound with TTWBing LLE for gait using FWW. Functional Limitations- Mobility/Gait Walked 68' prior to fatigue from UE's. Functional Limitations- Recreation/ Returning to exercise gym for Hobbies neck/shoulder/upper body exercise. Personal Factors Other Personal Factors That May Effect Lives in [place], spouse Therapy/Recovery Marycruz Vega is physical therapy patient at same clinic . Cori TKA, L forefoot fused, herniated disc with discectomy ?L4-L5. Osteopenia. PT-OP-C Subjective Start: 07/05/21 15:54 Freq: Status: Active Protocol: Document 11/14/21 15:06 LJ (Rec: 11/14/21 15:26 LJ [id number]) OP-PT Subjective Patient Comments Patient Comments Pt states she is still weak and does not feel safe walking without an AD though she can do short distances. PT-OP-G Mobility & Gait Start: 07/05/21 15:54 Freq: Status: Active Protocol: Document 07/11/21 15:06 LRN (Rec: 07/11/21 18:30 LRN [id number]) OP Mobility Evaluation Bed Mobility Supine to and from Sit Independent Transfers Sit to Stand Independent with FWW Bed to Chair Transfers Independent with FWW Car Transfers Independent Wheelchair Management Type of Wheelchair Normal Assessment Details Pt able to self propel and maneuver forward, backward and turn around independently. OP Gait Assessment Gait Gait Assistance Required: Independent Distance (Feet) 76 Able to Maintain Weight Bearing Status No During Gait Assistive Devices Assistive Device Front Wheeled Walker Gait Deviations General Gait Pattern Step-to Gait Comments Gait Comments Pt is TTWB LLE. PT-OP-K Range of Motion Start: 07/05/21 15:54 Freq: Status: Active Protocol: Document 10/12/21 13:46 [facility] (Rec: 10/12/21 14:51 [facility] [id number]) Hip Goniometric Range of Motion Hip Left Active Flexion w/Knee Flexed 115 Abduction 22 Knee Goniometric Range of Motion Knee Left Flexion Active (degrees) 116 Extension Active (degrees) 0 PT-OP-M Strength Start: 07/05/21 15:54 Freq: Status: Active Protocol: Document 10/12/21 13:46 [facility] (Rec: 10/12/21 14:51 [facility] [id number]) Hip Strength Hip Manual Muscle Testing Left Flexion (L2) 4 Good Extension (S1) 3+ Fair+ Abduction 3+ Fair+ Adduction 4- Good- External Rotation 3+ Fair+ Internal Rotation 3+ Fair+ Right Flexion (L2) 5 Normal Extension (S1) 3+ Fair+ Abduction 4+ Good+ Adduction 4+ Good+ External Rotation 4+ Good+ Internal Rotation 4+ Good+ Knee Strength Knee Manual Muscle Testing Right Flexion (S2) 5 Normal Extension (L3) 5 Normal Left Flexion (S2) 4+ Good+ Extension (L3) 3+ Fair+ Ankle/Foot Strength Ankle and Foot Manual Muscle Testing Right Dorsiflexion (L4) 5 Normal Plantarflexion (S1) 5 Normal Left Dorsiflexion (L4) 5 Normal Plantarflexion (S1) 5 Normal Comments PF tested seated PT-OP-Q Treatments Start: 07/05/21 15:54 Freq: Status: Active Protocol: Document 11/07/21 13:48 [facility] (Rec: 11/07/21 14:19 [facility] [id number]) Gait Training Gait Activity gait Comments 1. amb w/o AD working on more fluid gait and not locking knee 2x50ft 2. gait w/1 hiking pole 2x50ft Manual Therapy Treatment Soft Tissue Mobilization quad Body Location L quad (med border VMO, lat VL ) Mobilization Type Myofascial Release,Rolling, Strumming Intensity/Depth Moderate Body Position Supine Comments w/quad set Neuro Re-Education Treatment Balance Activities hurdles Comments 1. fwd over hurdles (6) x8 2. side step (B) x2 ea SLS Comments 1. alt august B x15 2. SLS w/use of rail B PT-OP-S Aquatic Treatment Start: 08/26/21 14:30 Freq: Status: Active Protocol: Document 11/14/21 15:06 VIK (Rec: 11/14/21 15:26 LJ [id number]) Aquatics Treatment Pool Entry/Exit Pool Entry/Exit Method Stairs Assistance Independent Comments cori UE support Water Walking [place] kick Water Level Chest Level Walking Equipment large ankle floats step-ups Water Level Waist Level Comments 10x2, 8 boxes, cues for gluteal engagement Monster Walk Water Level Chest Level Walking Equipment Ankle Floats Lunge Walk Water Level Waist Level Walking Equipment Ankle Floats Sideways Water Level Chest Level Walking Equipment Ankle Floats Comments emphasize toes forward Backwards Water Level Chest Level Level of Assistance Standby Assistance,Verbal Cues Comments large ankle floats Lower Extremity Exercises hip abd with resistnce Body Position Standing Water Level Waist Level Equipment hydroband + #5 wts Reps/Duration 2x 15B Comments hips ER hip hike Water Level Waist Level Reps/Duration 2x 15 B Comments tactile cues at shoulders and iliac crest to prevent rotational mvmt Lower Extremity Stretches gastroc, HS, soleus Details assisted Body Position Standing Water Level Waist Level Reps/Duration 2 x 45' LLE Comments noodle under ankle TFL Details at wall Body Position Standing Water Level Chest Level Equipment large ankle floats cori Reps/Duration 2 x 30' B quads, hip flexors Details at wall Body Position Standing Water Level Waist Level Equipment large ankle floats cori Reps/Duration 2 x 30 B [place] Activities [place] Activities Bicycle,[place],Hip Abduction/Adduction Other Activities Bike, Ski rest portion of intervals 6X 30/30 B deep kicks (prone at wall) + burpees (fwd, side) as rest interval 6x 30/30 B hip ABD with alt ski and bike as rest intervals Equipment flotation belt, sm ankle fins Duration 18 min PT-OP-T Assessment and Plan Start: 07/05/21 15:54 Freq: Status: Active Protocol: Document 11/14/21 15:06 VIK (Rec: 11/14/21 15:26 VIK [id number]) Physical Therapy Assessment Rehab Potential Rehabilitation Potential Excellent Evaluation Complexity Number of Personal Factors/Comorbidities 3 or More Number of Body Systems Impaired 4 or More Clinical Presentation at Evaluation Evolving Impairments Impairments Activity Tolerance,Functional Activities,Functional Mobility ,Gait,ROM,Soft Tissue Mobility ,Strength Goals ambulation Short Term Goal (STG) Pt will be able to amb short distances w/o AD w/good gait mechanics 10/12-can amb w/cane short and long distances but still requires external support STG Duration 10/29/21 Assisted Goal (LTG) Pt will be able to amb 2 miles without AD w/o inc pian greater than 2/10. LTG Duration 12/07/21 Three Impairment Decreased function per LEFS score of 17 Impairment LEFS score of 17 indicates 60- 79% impaired. Short Term Goal (STG) Improve function per LEFS score of no less than 32 (40- 59% impaired) 3/8-n/t STG Duration achieved to 39/80 Assisted Goal (LTG) Improve function per LEFS score no less than 63 (1-19% impaired). LTG Duration 12/02/21 Two Impairment Not able to ambulate without use of assistive device Impairment Gait 76' with FWW/NWBing LLE prior to fatigue. Short Term Goal (STG) Pt will be able to ambulate 100' with FWW with use of an assistive device and greater WBing of LLE when cleared for partial WBing of LLE. 08/23/21: progressinft maintaining PWB 20% of BW w/ FWW, step to gait. STG Duration achieved 09/06 Assisted Goal (LTG) Pt will be able to tolerate no less than 100' gait without use of assistive device when cleared for full WBing of LLE. 08/23/21: progressing 155ft maintaining PWB 20% of BW w/ FWW, step to gait. LTG Duration achieved 09/06 One Impairment Lacks appropriate self care HEP Short Term Goal (STG) Pt will be independent in a self care HEP to promote ongoing L knee/hip strengthening/ROM and core stabilization. 09/06-advancinga s able STG Duration achieved progressing as able Pmp Goal (LTG) Pt will have at least 4+/5 LE MMT in all planes B to show improved stability of hip and knee to improve ability to mobilize int he community 10/12-improving LTG Duration 12/07 Assessment Summary Assessment Pt increased effort with standing exercises and deep water exercise. Able to do limited ROM hip hiking with tactile and verbal cueing without fatigue. Approx 40% WB on box. Deep water exercises were performed with increased effort (increased speed and effort). She tolerated new level of effort well w/o complaint of fatigue or pain. Physical Therapy Plan Frequency and Duration Frequency of Treatment 2x/Week Duration of Treatment 3 months Plan of Care Start Date 09/06/21 Plan of Care End Date 12/07/21 Therapeutic Interventions Therapeutic Interventions Aquatic Therapy,Balance Training,Gait Training,Home Exercise Program,Joint Mobilizations,Manual Therapy, Neuromuscular Re-education, Patient/Caregiver Education, Self-Care/Home Management,Soft Tissue Mobilization,Taping, Therapeutic Activities, Therapeutic Exercises Modalities Cold Pack/Ice Massage,Electric Stimulation,Hot Packs, Ultrasound Next Visit Focus/Plan Next Note Type Treatment Note Next Visit Plan cont to work on hip (glute) stability and quad engagement L and start doing more w/ uneven surfaces to work on balance; clinic and aquatic- based. Depending on response to increased effort this session, continue with higher level of exercise to improve glute and quad strength as well as endurance.
--- NOTE | 2021-11-16 11:15 | PT.OTN ---
Current Diagnoses Stiffness of right knee, not elsewhere classified (11/16/21) Muscle weakness (generalized) (11/16/21) Unsteadiness on feet (11/16/21) Fall on same level, unspecified, initial encounter (11/16/21) Presence of unspecified artificial knee joint (11/16/21) Physical Therapy Treatment Note PT-OP-A Visit Information Start: 07/05/21 15:54 Freq: Status: Active Protocol: Document 11/16/21 10:28 SP (Rec: 11/16/21 11:37 SP [id number]) Out-Patient Physical Therapy Visit Information Visit Information Visit Type Treatment Note Visit Note 03/11, PN due next tx. Visit Start Time 10:30 Visit Stop Time 11:15 Total Visit Minutes 45 Visit Number 28 Number of MAIL OFFICER Visits 2 Evaluation Information Evaluation Date 07/11/21 Precautions Precautions WBAT PT-OP-B Current Condition Start: 07/05/21 15:54 Freq: Status: Active Protocol: Document 07/11/21 15:06 LRN (Rec: 07/11/21 18:30 LRN [id number]) Current Condition History of Current Condition Onset Date 06/28/21 Current Complaints L History of Current Condition Slipper on ice landing on R hip with L leg behind resulting in L distal femur fracture. Pt is 11 days s/p ORIF 06/30/21. PRECAUTIONS: TTWB LLE, knee imimobilizer for comfort, ROM as tolerated L knee. Pt has been doing a HEP (QS, GS, heel slides, assisted hip AB) 2x/day. Pt denies pain except in neck at nighttime during sleep. PMH: Cori TKA, R forefoot fusion, fx R wrist. Prior Treatments and Tests HEP issued post-op. Future Testing and Treatments Planned Pt surgical follow up in 2 days. Treatment Goals Patient/Caregiver Goals Pt goal is to be able to get up and walk when she wants. Pt is agreeable to goal of walkling without the use of an assistive device. Prior Functional Status Baseline Function- ADL's Independent Baseline Function- Mobility Independent Baseline Function- Gait Independent w/o assistive device Baseline Function- Recreation/Hobbies Walked 1.5 miles daily. Hiked with walking pole. Current Functional Impairments (Reported) Functional Limitations- ADL's Wheelchair and walker bound with TTWBing LLE for gait using FWW. Functional Limitations- Mobility/Gait Walked 68' prior to fatigue from UE's. Functional Limitations- Recreation/ Returning to exercise gym for Hobbies neck/shoulder/upper body exercise. Personal Factors Other Personal Factors That May Effect Lives in [place], spouse Therapy/Recovery Marycruz Vega is physical therapy patient at same clinic . Cori TKA, L forefoot fused, herniated disc with discectomy ?L4-L5. Osteopenia. PT-OP-C Subjective Start: 07/05/21 15:54 Freq: Status: Active Protocol: Document 11/16/21 10:28 SP (Rec: 11/16/21 11:37 SP [id number]) OP-PT Subjective Patient Comments Patient Comments Pt reported does try walk short distances without cane but R quad tires quickly then more limp and not sure if knee will buckle. PT-OP-G Mobility & Gait Start: 07/05/21 15:54 Freq: Status: Active Protocol: Document 07/11/21 15:06 LRN (Rec: 07/11/21 18:30 LRN [id number]) OP Mobility Evaluation Bed Mobility Supine to and from Sit Independent Transfers Sit to Stand Independent with FWW Bed to Chair Transfers Independent with FWW Car Transfers Independent Wheelchair Management Type of Wheelchair Normal Assessment Details Pt able to self propel and maneuver forward, backward and turn around independently. OP Gait Assessment Gait Gait Assistance Required: Independent Distance (Feet) 76 Able to Maintain Weight Bearing Status No During Gait Assistive Devices Assistive Device Front Wheeled Walker Gait Deviations General Gait Pattern Step-to Gait Comments Gait Comments Pt is TTWB LLE. PT-OP-K Range of Motion Start: 07/05/21 15:54 Freq: Status: Active Protocol: Document 10/12/21 13:46 [facility] (Rec: 10/12/21 14:51 [facility] [id number]) Hip Goniometric Range of Motion Hip Left Active Flexion w/Knee Flexed 115 Abduction 22 Knee Goniometric Range of Motion Knee Left Flexion Active (degrees) 116 Extension Active (degrees) 0 PT-OP-M Strength Start: 07/05/21 15:54 Freq: Status: Active Protocol: Document 10/12/21 13:46 [facility] (Rec: 10/12/21 14:51 [facility] [id number]) Hip Strength Hip Manual Muscle Testing Left Flexion (L2) 4 Good Extension (S1) 3+ Fair+ Abduction 3+ Fair+ Adduction 4- Good- External Rotation 3+ Fair+ Internal Rotation 3+ Fair+ Right Flexion (L2) 5 Normal Extension (S1) 3+ Fair+ Abduction 4+ Good+ Adduction 4+ Good+ External Rotation 4+ Good+ Internal Rotation 4+ Good+ Knee Strength Knee Manual Muscle Testing Right Flexion (S2) 5 Normal Extension (L3) 5 Normal Left Flexion (S2) 4+ Good+ Extension (L3) 3+ Fair+ Ankle/Foot Strength Ankle and Foot Manual Muscle Testing Right Dorsiflexion (L4) 5 Normal Plantarflexion (S1) 5 Normal Left Dorsiflexion (L4) 5 Normal Plantarflexion (S1) 5 Normal Comments PF tested seated PT-OP-Q Treatments Start: 07/05/21 15:54 Freq: Status: Active Protocol: Document 11/16/21 10:28 SP (Rec: 11/16/21 11:37 SP [id number]) Gym Equipment Shuttle Balance red Details WBOS, NBOS, stagger Reps/Duration 8 Comments wt shift, stationary head turns Cued: wt between BLE, L soft knee. Therapeutic Exercises Supine Exercises SAQ Supine Exercise Name available range Side left Equipment Used over bolster Reps/Minutes 2x10 Comments cued slow pacing lift/lower, no hip/LB recruitment Gait Training Gait Activity wt shifts Description gait phase patterning under tension con/ecc L quad/HS Device Used contact chair, TB #2 Level of Assistance CGA Surface firm Distance/Duration 10 ea Treatment Focus L soft knee stability wt acceptance and step through RLE forward/backward Comments wt shift to LLE w/ TB #2 under tension anteriorly then RLE w /focus on wt acceptance and push off progressed to w/step through B gait Comments 1. amb w/o AD working on more fluid gait and not locking knee 2x50ft Cued tall trunk still, L soft knee. Manual Therapy Treatment Soft Tissue Mobilization quad Body Location L distal quad above patella, patellar tendon Mobilization Type Cross-Friction,Myofascial Release Intensity/Depth Moderate Body Position Supine Comments manual, improved quad fac w/ SAQ. Joint Mobilizations tibiofemoral Joint AP on femur Direction AP, PA Grade II Body Position Hooklying Patellofemoral Joint L Direction sup, inf, med Grade II Taping L knee fat pad taping Body Location patellar tendon Treatment Focus decompression fat pad, allow painfree patella inferior glide Type of Tape Casey Skin Inspection intact, normal skin color Comments cover roll, Casey taping over L patellar tendon, 2 horizontal strips meet middle w/ little more Medial direction anchoring. PT-OP-S Aquatic Treatment Start: 08/26/21 14:30 Freq: Status: Active Protocol: Document 11/14/21 15:06 LJ (Rec: 11/14/21 15:26 LJ [id number]) Aquatics Treatment Pool Entry/Exit Pool Entry/Exit Method Stairs Assistance Independent Comments cori UE support Water Walking march kick Water Level Chest Level Walking Equipment large ankle floats step-ups Water Level Waist Level Comments 10x2, 8 boxes, cues for gluteal engagement Monster Walk Water Level Chest Level Walking Equipment Ankle Floats Lunge Walk Water Level Waist Level Walking Equipment Ankle Floats Sideways Water Level Chest Level Walking Equipment Ankle Floats Comments emphasize toes forward Backwards Water Level Chest Level Level of Assistance Standby Assistance,Verbal Cues Comments large ankle floats Lower Extremity Exercises hip abd with resistnce Body Position Standing Water Level Waist Level Equipment hydroband + #5 wts Reps/Duration 2x 15B Comments hips ER hip hike Water Level Waist Level Reps/Duration 2x 15 B Comments tactile cues at shoulders and iliac crest to prevent rotational mvmt Lower Extremity Stretches gastroc, HS, soleus Details assisted Body Position Standing Water Level Waist Level Reps/Duration 2 x 45' LLE Comments noodle under ankle TFL Details at wall Body Position Standing Water Level Chest Level Equipment large ankle floats cori Reps/Duration 2 x 30' B quads, hip flexors Details at wall Body Position Standing Water Level Waist Level Equipment large ankle floats cori Reps/Duration 2 x 30 B [place] Activities [place] Activities Bicycle,Cross Country,Hip Abduction/Adduction Other Activities Bike, Ski rest portion of intervals 6X 30/30 B deep kicks (prone at wall) + burpees (fwd, side) as rest interval 6x 30/30 B hip ABD with alt ski and bike as rest intervals Equipment flotation belt, sm ankle fins Duration 18 min PT-OP-T Assessment and Plan Start: 07/05/21 15:54 Freq: Status: Active Protocol: Document 11/16/21 10:28 SP (Rec: 11/16/21 11:37 SP [id number]) Physical Therapy Assessment Goals ambulation Short Term Goal (STG) Pt will be able to amb short distances w/o AD w/good gait mechanics 10/12-can amb w/cane short and long distances but still requires external support STG Duration 10/29/21 Jail Goal (LTG) Pt will be able to amb 2 miles without AD w/o inc pian greater than 2/10. LTG Duration 12/07/21 Three Impairment Decreased function per LEFS score of 17 Impairment LEFS score of 17 indicates 60- 79% impaired. Short Term Goal (STG) Improve function per LEFS score of no less than 32 (40- 59% impaired) 09/06-n/t STG Duration achieved to 39/80 Jail Goal (LTG) Improve function per LEFS score no less than 63 (1-19% impaired). LTG Duration 12/02/21 Two Impairment Not able to ambulate without use of assistive device Impairment Gait 76' with FWW/NWBing LLE prior to fatigue. Short Term Goal (STG) Pt will be able to ambulate 100' with FWW with use of an assistive device and greater WBing of LLE when cleared for partial WBing of LLE. 08/23/21: progressinft maintaining PWB 20% of BW w/ FWW, step to gait. STG Duration achieved 09/06 Jail Goal (LTG) Pt will be able to tolerate no less than 100' gait without use of assistive device when cleared for full WBing of LLE. 08/23/21: progressing 155ft maintaining PWB 20% of BW w/ FWW, step to gait. LTG Duration achieved 09/06 One Impairment Lacks appropriate self care HEP Short Term Goal (STG) Pt will be independent in a self care HEP to promote ongoing L knee/hip strengthening/ROM and core stabilization. 09/06-advancinga s able STG Duration achieved progressing as able Jail Goal (LTG) Pt will have at least 4+/5 LE MMT in all planes B to show improved stability of hip and knee to improve ability to mobilize int he community 10/12-improving LTG Duration 12/07 Assessment Summary Assessment Pt improved L soft knee quad and glut fac. during step up/down with almost no clicking sub patella post manual & Peña taping fat pad and L soft knee stability on shuttle balance they carryover to gait end tx improved heel strike to midstance to toe off, cued RLE knee flexion to decrease lateral lean. Physical Therapy Plan Frequency and Duration Frequency of Treatment 2x/Week Duration of Treatment 3 months Plan of Care Start Date 09/06/21 Plan of Care End Date 12/07/21 Therapeutic Interventions Therapeutic Interventions Aquatic Therapy,Balance Training,Gait Training,Home Exercise Program,Joint Mobilizations,Manual Therapy, Neuromuscular Re-education, Patient/Caregiver Education, Self-Care/Home Management,Soft Tissue Mobilization,Taping, Therapeutic Activities, Therapeutic Exercises Modalities Cold Pack/Ice Massage,Electric Stimulation,Hot Packs, Ultrasound Next Visit Focus/Plan Next Note Type Treatment Note Next Visit Plan cont to work on hip (glute) stability and quad engagement L and start doing more w/ uneven surfaces to work on balance; clinic and aquatic- based. Depending on response to increased effort this session, continue with higher level of exercise to improve glute and quad strength as well as endurance.
--- NOTE | 2021-11-21 14:32 | PT.OTN ---
Current Diagnoses Stiffness of right knee, not elsewhere classified (11/21/21) Muscle weakness (generalized) (11/21/21) Unsteadiness on feet (11/21/21) Fall on same level, unspecified, initial encounter (11/21/21) Presence of unspecified artificial knee joint (11/21/21) Physical Therapy Treatment Note PT-OP-A Visit Information Start: 07/05/21 15:54 Freq: Status: Active Protocol: Document 11/21/21 14:17 LJ (Rec: 11/21/21 14:32 LJ [id number]) Out-Patient Physical Therapy Visit Information Visit Information Visit Type Treatment Note Visit Note 03/11, PN due next tx. Visit Start Time 10:30 Visit Stop Time 11:15 Total Visit Minutes 45 Visit Number 28 Number of SNACK FOODS MIXER OPERATOR Visits 2 Precautions Precautions WBAT PT-OP-B Current Condition Start: 07/05/21 15:54 Freq: Status: Active Protocol: Document 07/11/21 15:06 LRN (Rec: 07/11/21 18:30 LRN [id number]) Current Condition History of Current Condition Onset Date 06/28/21 Current Complaints L History of Current Condition Slipper on ice landing on R hip with L leg behind resulting in L distal femur fracture. Pt is 11 days s/p ORIF 06/30/21. PRECAUTIONS: TTWB LLE, knee imimobilizer for comfort, ROM as tolerated L knee. Pt has been doing a HEP (QS, GS, heel slides, assisted hip AB) 2x/day. Pt denies pain except in neck at nighttime during sleep. PMH: Cori TKA, R forefoot fusion, fx R wrist. Prior Treatments and Tests HEP issued post-op. Future Testing and Treatments Planned Pt surgical follow up in 2 days. Treatment Goals Patient/Caregiver Goals Pt goal is to be able to get up and walk when she wants. Pt is agreeable to goal of walkling without the use of an assistive device. Prior Functional Status Baseline Function- ADL's Independent Baseline Function- Mobility Independent Baseline Function- Gait Independent w/o assistive device Baseline Function- Recreation/Hobbies Walked 1.5 miles daily. Hiked with walking pole. Current Functional Impairments (Reported) Functional Limitations- ADL's Wheelchair and walker bound with TTWBing LLE for gait using FWW. Functional Limitations- Mobility/Gait Walked 68' prior to fatigue from UE's. Functional Limitations- Recreation/ Returning to exercise gym for Hobbies neck/shoulder/upper body exercise. Personal Factors Other Personal Factors That May Effect Lives in [place], spouse Therapy/Recovery Marycruz Vega is physical therapy patient at same clinic . Cori TKA, L forefoot fused, herniated disc with discectomy ?L4-L5. Osteopenia. PT-OP-C Subjective Start: 07/05/21 15:54 Freq: Status: Active Protocol: Document 11/21/21 14:17 LJ (Rec: 11/21/21 14:32 LJ [id number]) OP-PT Subjective Patient Comments Patient Comments Pt reports she was able to walk around this past weekend without a cane and she felt good about it. She expressed that she is still frustrated by how long it is taking her to recover though. PT-OP-G Mobility & Gait Start: 07/05/21 15:54 Freq: Status: Active Protocol: Document 07/11/21 15:06 LRN (Rec: 07/11/21 18:30 LRN [id number]) OP Mobility Evaluation Bed Mobility Supine to and from Sit Independent Transfers Sit to Stand Independent with FWW Bed to Chair Transfers Independent with FWW Car Transfers Independent Wheelchair Management Type of Wheelchair Normal Assessment Details Pt able to self propel and maneuver forward, backward and turn around independently. OP Gait Assessment Gait Gait Assistance Required: Independent Distance (Feet) 76 Able to Maintain Weight Bearing Status No During Gait Assistive Devices Assistive Device Front Wheeled Walker Gait Deviations General Gait Pattern Step-to Gait Comments Gait Comments Pt is TTWB LLE. PT-OP-K Range of Motion Start: 07/05/21 15:54 Freq: Status: Active Protocol: Document 10/12/21 13:46 [facility] (Rec: 10/12/21 14:51 [facility] [id number]) Hip Goniometric Range of Motion Hip Left Active Flexion w/Knee Flexed 115 Abduction 22 Knee Goniometric Range of Motion Knee Left Flexion Active (degrees) 116 Extension Active (degrees) 0 PT-OP-M Strength Start: 07/05/21 15:54 Freq: Status: Active Protocol: Document 10/12/21 13:46 [facility] (Rec: 10/12/21 14:51 [facility] [id number]) Hip Strength Hip Manual Muscle Testing Left Flexion (L2) 4 Good Extension (S1) 3+ Fair+ Abduction 3+ Fair+ Adduction 4- Good- External Rotation 3+ Fair+ Internal Rotation 3+ Fair+ Right Flexion (L2) 5 Normal Extension (S1) 3+ Fair+ Abduction 4+ Good+ Adduction 4+ Good+ External Rotation 4+ Good+ Internal Rotation 4+ Good+ Knee Strength Knee Manual Muscle Testing Right Flexion (S2) 5 Normal Extension (L3) 5 Normal Left Flexion (S2) 4+ Good+ Extension (L3) 3+ Fair+ Ankle/Foot Strength Ankle and Foot Manual Muscle Testing Right Dorsiflexion (L4) 5 Normal Plantarflexion (S1) 5 Normal Left Dorsiflexion (L4) 5 Normal Plantarflexion (S1) 5 Normal Comments PF tested seated PT-OP-Q Treatments Start: 07/05/21 15:54 Freq: Status: Active Protocol: Document 11/16/21 10:28 SP (Rec: 11/16/21 11:37 SP [id number]) Gym Equipment Shuttle Balance red Details WBOS, NBOS, stagger Reps/Duration 8 Comments wt shift, stationary head turns Cued: wt between BLE, L soft knee. Therapeutic Exercises Supine Exercises SAQ Supine Exercise Name available range Side left Equipment Used over bolster Reps/Minutes 2x10 Comments cued slow pacing lift/lower, no hip/LB recruitment Gait Training Gait Activity wt shifts Description gait phase patterning under tension con/ecc L quad/HS Device Used contact chair, TB #2 Level of Assistance CGA Surface firm Distance/Duration 10 ea Treatment Focus L soft knee stability wt acceptance and step through RLE forward/backward Comments wt shift to LLE w/ TB #2 under tension anteriorly then RLE w /focus on wt acceptance and push off progressed to w/step through B gait Comments 1. amb w/o AD working on more fluid gait and not locking knee 2x50ft Cued tall trunk still, L soft knee. Manual Therapy Treatment Soft Tissue Mobilization quad Body Location L distal quad above patella, patellar tendon Mobilization Type Cross-Friction,Myofascial Release Intensity/Depth Moderate Body Position Supine Comments manual, improved quad fac w/ SAQ. Joint Mobilizations tibiofemoral Joint AP on femur Direction AP, PA Grade II Body Position Hooklying Patellofemoral Joint L Direction sup, inf, med Grade II Taping L knee fat pad taping Body Location patellar tendon Treatment Focus decompression fat pad, allow painfree patella inferior glide Type of Tape Casey Skin Inspection intact, normal skin color Comments cover roll, Casey taping over L patellar tendon, 2 horizontal strips meet middle w/ little more Medial direction anchoring. PT-OP-S Aquatic Treatment Start: 08/26/21 14:30 Freq: Status: Active Protocol: Document 11/21/21 14:17 [facility]K (Rec: 11/21/21 14:32 [id number]) Aquatics Treatment Pool Entry/Exit Pool Entry/Exit Method Stairs Assistance Independent Comments cori UE support Water Walking march kick Water Level Chest Level Walking Equipment Ankle Weight- 5.0# Monster Walk Water Level Chest Level Walking Equipment Ankle Weight- 5.0# Lunge Walk Water Level Waist Level Walking Equipment Ankle Weight- 5.0# Marching Water Level Chest Level Walking Equipment Ankle Weight- 5.0# Sideways Water Level Chest Level Walking Equipment Ankle Weight- 5.0# Comments emphasize toes forward Backwards Water Level Chest Level Walking Equipment Ankle Weight- 5.0# Forwards Water Level Chest Level Lower Extremity Exercises hip abd with resistnce Body Position Standing Water Level Waist Level Equipment #5 wts Reps/Duration 2x 15B hip hike Water Level Waist Level Equipment Ankle Weight- 5.0# Reps/Duration 2x 15 B Comments tactile cues at shoulders and iliac crest to prevent rotational mvmt HS curl Body Position Standing Water Level Chest Level Equipment Ankle Weight- 5.0# Reps/Duration 15 x 2 B seated knee fl/ext Body Position Sitting Water Level Neck Level Equipment Ankle Weight- 5.0# Reps/Duration 10x2 Lower Extremity Stretches gastroc, HS, soleus Details assisted Body Position Standing Water Level Waist Level Reps/Duration 2 x 45' LLE Comments noodle under ankle TFL Details at wall Body Position Standing Water Level Chest Level Equipment large ankle floats cori Reps/Duration 2 x 30' B quads, hip flexors Details at wall Body Position Standing Water Level Waist Level Equipment large ankle floats cori Reps/Duration 2 x 30 B Spinal Exercises squats Details double and single leg Body Position Standing Water Level Waist Level Equipment stretch cords Reps/Duration 2x [address] [place] Activities [place] Activities Bicycle,Cross Country,Hip Abduction/Adduction Other Activities Bike, Ski rest portion of intervals 4X 30/30 B deep kicks (prone at wall) + burpees (fwd, side) as rest interval 4x 30/30 B hip ABD with alt ski and bike as rest intervals Equipment flotation belt, sm ankle fins Duration 18 min Comments 8 min traction PT-OP-T Assessment and Plan Start: 07/05/21 15:54 Freq: Status: Active Protocol: Document 11/21/21 14:17 VIK (Rec: 11/21/21 14:32 [facility]K [id number]) Physical Therapy Assessment Rehab Potential Rehabilitation Potential Excellent Evaluation Complexity Number of Personal Factors/Comorbidities 3 or More Number of Body Systems Impaired 4 or More Clinical Presentation at Evaluation Evolving Impairments Impairments Activity Tolerance,Functional Activities,Functional Mobility ,Gait,ROM,Soft Tissue Mobility ,Strength Goals ambulation Short Term Goal (STG) Pt will be able to amb short distances w/o AD w/good gait mechanics 10/12-can amb w/cane short and long distances but still requires external support STG Duration 10/29/21 Analytics Intern Goal (LTG) Pt will be able to amb 2 miles without AD w/o inc pian greater than 2/10. LTG Duration 12/07/21 Three Impairment Decreased function per LEFS score of 17 Impairment LEFS score of 17 indicates 60- 79% impaired. Short Term Goal (STG) Improve function per LEFS score of no less than 32 (40- 59% impaired) 09/06-n/t STG Duration achieved to 39/80 [employer] Intern Goal (LTG) Improve function per LEFS score no less than 63 (1-19% impaired). LTG Duration 12/02/21 Two Impairment Not able to ambulate without use of assistive device Impairment Gait 76' with FWW/NWBing LLE prior to fatigue. Short Term Goal (STG) Pt will be able to ambulate 100' with FWW with use of an assistive device and greater WBing of LLE when cleared for partial WBing of LLE. 08/23/21: progressinft maintaining PWB 20% of BW w/ FWW, step to gait. STG Duration achieved 09/06 [facility] Goal (LTG) Pt will be able to tolerate no less than 100' gait without use of assistive device when cleared for full WBing of LLE. 08/23/21: progressing 155ft maintaining PWB 20% of BW w/ FWW, step to gait. LTG Duration achieved 09/06 One Impairment Lacks appropriate self care HEP Short Term Goal (STG) Pt will be independent in a self care HEP to promote ongoing L knee/hip strengthening/ROM and core stabilization. 09/06-advancinga s able STG Duration achieved progressing as able Analytics Intern Goal (LTG) Pt will have at least 4+/5 LE MMT in all planes B to show improved stability of hip and knee to improve ability to mobilize int he community 10/12-improving LTG Duration 12/07 Assessment Summary Assessment Pt initially experiencing clicking sub-patella with knee extension so ROM adjusted and it stopped. Improved pelvic alignment with SL squats. Pt tolerated cardio intervals with same resistance fins. She exited pool with slow supported step ups and used SPC to locker room. Physical Therapy Plan Frequency and Duration Frequency of Treatment 2x/Week Duration of Treatment 3 months Plan of Care Start Date 09/06/21 Plan of Care End Date 12/07/21 Therapeutic Interventions Therapeutic Interventions Aquatic Therapy,Balance Training,Gait Training,Home Exercise Program,Joint Mobilizations,Manual Therapy, Neuromuscular Re-education, Patient/Caregiver Education, Self-Care/Home Management,Soft Tissue Mobilization,Taping, Therapeutic Activities, Therapeutic Exercises Modalities Cold Pack/Ice Massage,Electric Stimulation,Hot Packs, Ultrasound Next Visit Focus/Plan Next Note Type Treatment Note Next Visit Plan cont to work on hip (glute) stability and quad engagement L and start doing more w/ uneven surfaces to work on balance; clinic and aquatic- based. Depending on response to increased effort this session, continue with higher level of exercise to improve glute and quad strength as well as endurance.
--- NOTE | 2021-11-24 18:59 | PT.OTN ---
Current Diagnoses Stiffness of right knee, not elsewhere classified (11/24/21) Muscle weakness (generalized) (11/24/21) Unsteadiness on feet (11/24/21) Fall on same level, unspecified, initial encounter (11/24/21) Presence of unspecified artificial knee joint (11/24/21) Physical Therapy Treatment Note PT-OP-A Visit Information Start: 07/05/21 15:54 Freq: Status: Active Protocol: Document 11/24/21 16:55 LR (Rec: 11/24/21 18:59 [facility] [id number]) Out-Patient Physical Therapy Visit Information Visit Information Visit Type Progress Note Visit Start Time 16:50 Visit Stop Time 17:35 Total Visit Minutes 45 Visit Number 29 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 Pt is 11 days s/p ORIF 06/30/21. PRECAUTIONS: TTWB LLE, knee imimobilizer for comfort, ROM as tolerated L knee. Pt has been doing a HEP (QS, GS, heel slides, assisted hip AB) 2x/day. Pt denies pain except in neck at nighttime during sleep. PMH: Cori TKA, R forefoot fusion, fx R wrist. Prior Treatments and Tests HEP issued post-op. Future Testing and Treatments Planned Pt surgical follow up in 2 days. Treatment Goals Patient/Caregiver Goals Pt goal is to be able to get up and walk when she wants. Pt is agreeable to goal of walkling without the use of an assistive device. Prior Functional Status Baseline Function- ADL's Independent Baseline Function- Mobility Independent Baseline Function- Gait Independent w/o assistive device Baseline Function- Recreation/Hobbies Walked 1.5 miles daily. Hiked with walking pole. Current Functional Impairments (Reported) Functional Limitations- ADL's Wheelchair and walker bound with TTWBing LLE for gait using FWW. Functional Limitations- Mobility/Gait Walked 68' prior to fatigue from UE's. Functional Limitations- Recreation/ Returning to exercise gym for Hobbies neck/shoulder/upper body exercise. Personal Factors Other Personal Factors That May Effect Lives in [place], spouse Therapy/Recovery Marycruz Sumnerw is physical therapy patient at same clinic . Cori TKA, L forefoot fused, herniated disc with discectomy ?L4-L5. Osteopenia. PT-OP-C Subjective Start: 07/05/21 15:54 Freq: Status: Active Protocol: Document 11/24/21 16:55 [facility] (Rec: 11/24/21 18:59 [facility] [id number]) OP-PT Subjective Patient Comments Patient Comments Pt reports she sees ortho next week. Patient Reported Progress Improving PT-OP-G Mobility & Gait Start: 07/05/21 15:54 Freq: Status: Active Protocol: Document 07/11/21 15:06 LR (Rec: 07/11/21 18:30 [facility] [id number]) OP Mobility Evaluation Bed Mobility Supine to and from Sit Independent Transfers Sit to Stand Independent with FWW Bed to Chair Transfers Independent with FWW Car Transfers Independent Wheelchair Management Type of Wheelchair Normal Assessment Details Pt able to self propel and maneuver forward, backward and turn around independently. OP Gait Assessment Gait Gait Assistance Required: Independent Distance (Feet) 76 Able to Maintain Weight Bearing Status No During Gait Assistive Devices Assistive Device Front Wheeled Walker Gait Deviations General Gait Pattern Step-to Gait Comments Gait Comments Pt is TTWB LLE. PT-OP-K Range of Motion Start: 07/05/21 15:54 Freq: Status: Active Protocol: Document 10/12/21 13:46 [facility] (Rec: 10/12/21 14:51 [facility] [id number]) Hip Goniometric Range of Motion Hip Left Active Flexion w/Knee Flexed 115 Abduction 22 Knee Goniometric Range of Motion Knee Left Flexion Active (degrees) 116 Extension Active (degrees) 0 PT-OP-M Strength Start: 07/05/21 15:54 Freq: Status: Active Protocol: Document 11/24/21 16:55 [facility] (Rec: 11/24/21 18:59 [facility] [id number]) Hip Strength Hip Manual Muscle Testing Left Flexion (L2) 4+ Good+ Extension (S1) 4- Good- Abduction 3+ Fair+ Adduction 4 Good External Rotation 4- Good- Internal Rotation 4- Good- Right Flexion (L2) 5 Normal Extension (S1) 4- Good- Abduction 4+ Good+ Adduction 5 Normal External Rotation 5 Normal Internal Rotation 5 Normal Knee Strength Knee Manual Muscle Testing Right Flexion (S2) 5 Normal Extension (L3) 5 Normal Left Flexion (S2) 5 Normal Extension (L3) 3+ Fair+ Ankle/Foot Strength Ankle and Foot Manual Muscle Testing Right Dorsiflexion (L4) 5 Normal Plantarflexion (S1) 5 Normal Left Dorsiflexion (L4) 5 Normal Plantarflexion (S1) 5 Normal Comments PF tested seated PT-OP-Q Treatments Start: 07/05/21 15:54 Freq: Status: Active Protocol: Document 11/24/21 16:55 [facility] (Rec: 11/24/21 18:59 [facility] [id number]) Therapeutic Exercises Standing Exercises step ups Standing Exercise Name 4 in w/rail Side left Reps/Minutes 10 squat Standing Exercise Name 1. squat w/TKE w/band behind L knee 2. sumo squats Side bilateral Reps/Minutes 15 ea Gait Training Gait Activity wt shifts Device Used counter prn Level of Assistance SBA Surface firm Comments wt shifts B w/focus on push off progressed to step through progress to wt shifts at bar for gait gait Comments 1. amb w/o AD working on more fluid gait and not locking knee 2x75ft Neuro Re-Education Treatment Balance Activities SLS Comments 1. SLS w/rolling ball under RLE 2. SLS w/RLE on bosu w/twists & reaching in all directions PT-OP-S Aquatic Treatment Start: 08/26/21 14:30 Freq: Status: Active Protocol: Document 11/21/21 14:17 VIK (Rec: 11/21/21 14:32 [id number]) Aquatics Treatment Pool Entry/Exit Pool Entry/Exit Method Stairs Assistance Independent Comments cori UE support Water Walking march kick Water Level Chest Level Walking Equipment Ankle Weight- 5.0# Monster Walk Water Level Chest Level Walking Equipment Ankle Weight- 5.0# Lunge Walk Water Level Waist Level Walking Equipment Ankle Weight- 5.0# Marching Water Level Chest Level Walking Equipment Ankle Weight- 5.0# Sideways Water Level Chest Level Walking Equipment Ankle Weight- 5.0# Comments emphasize toes forward Backwards Water Level Chest Level Walking Equipment Ankle Weight- 5.0# Forwards Water Level Chest Level Lower Extremity Exercises hip abd with resistnce Body Position Standing Water Level Waist Level Equipment #5 wts Reps/Duration 2x 15B hip hike Water Level Waist Level Equipment Ankle Weight- 5.0# Reps/Duration 2x 15 B Comments tactile cues at shoulders and iliac crest to prevent rotational mvmt HS curl Body Position Standing Water Level Chest Level Equipment Ankle Weight- 5.0# Reps/Duration 15 x 2 B seated knee fl/ext Body Position Sitting Water Level Neck Level Equipment Ankle Weight- 5.0# Reps/Duration 10x2 Lower Extremity Stretches gastroc, HS, soleus Details assisted Body Position Standing Water Level Waist Level Reps/Duration 2 x 45' LLE Comments noodle under ankle TFL Details at wall Body Position Standing Water Level Chest Level Equipment large ankle floats cori Reps/Duration 2 x 30' B quads, hip flexors Details at wall Body Position Standing Water Level Waist Level Equipment large ankle floats cori Reps/Duration 2 x 30 B Spinal Exercises squats Details double and single leg Body Position Standing Water Level Waist Level Equipment stretch cords Reps/Duration 2x [address] [place] Activities [place] Activities Bicycle,Cross Country,Hip Abduction/Adduction Other Activities Bike, Ski rest portion of intervals 4X 30/30 B deep kicks (prone at wall) + burpees (fwd, side) as rest interval 4x 30/30 B hip ABD with alt ski and bike as rest intervals Equipment flotation belt, sm ankle fins Duration 18 min Comments 8 min traction PT-OP-T Assessment and Plan Start: 07/05/21 15:54 Freq: Status: Active Protocol: Document 11/24/21 16:55 [facility] (Rec: 11/24/21 18:59 [facility] [id number]) Physical Therapy Assessment Goals ambulation Short Term Goal (STG) Pt will be able to amb short distances w/o AD w/good gait mechanics 10/12-can amb w/cane short and long distances but still requires external support 11/24 can walk w/o AD but requires cues STG Duration 12/25 Group Home Goal (LTG) Pt will be able to amb 2 miles with 1 walking stick w/o inc pian greater than 2/10. LTG Duration 01/24/22 Three Impairment Decreased function per LEFS score of 17 Impairment LEFS score of 17 indicates 60- 79% impaired. Short Term Goal (STG) Improve function per LEFS score of no less than 32 (40- 59% impaired) 09/06-n/t STG Duration achieved to 39/80 Group Home Goal (LTG) Improve function per LEFS score no less than 63 (1-19% impaired). 11/24-n/t LTG Duration 01/24/22 Two Impairment Not able to ambulate without use of assistive device Impairment Gait 76' with FWW/NWBing LLE prior to fatigue. Short Term Goal (STG) Pt will be able to ambulate 100' with FWW with use of an assistive device and greater WBing of LLE when cleared for partial WBing of LLE. 08/23/21: progressinft maintaining PWB 20% of BW w/ FWW, step to gait. STG Duration achieved 09/06 Group Home Goal (LTG) Pt will be able to tolerate no less than 100' gait without use of assistive device when cleared for full WBing of LLE. 08/23/21: progressing 155ft maintaining PWB 20% of BW w/ FWW, step to gait. LTG Duration achieved 09/06 One Impairment Lacks appropriate self care HEP Short Term Goal (STG) Pt will be independent in a self care HEP to promote ongoing L knee/hip strengthening/ROM and core stabilization. 09/06-advancinga s able STG Duration achieved progressing as able Group Home Goal (LTG) Pt will have at least 4+/5 LE MMT in all planes B to show improved stability of hip and knee to improve ability to mobilize int he community 10/12-improving 11/24-cont improvement LTG Duration 01/24 Assessment Summary Assessment Pt had less pain in sumo squat position vs reg squat likely d/t lack of IR ROM in L hip which may be affecting knee joint dynamics. She cont to lack terminal quad ext and another unit was attempted for NMES but only caused pain before quad contraction facilitated. She improved gait when cued and slowed down. Smaller steps imrpoved gait pattern. She would benefit from cont PT to cont to work on gait, strength and balance to improve inc functional ability. Physical Therapy Plan Frequency and Duration Frequency of Treatment 1-2x/wk Duration of Treatment 2 months Plan of Care Start Date 11/24/21 Plan of Care End Date 01/24/22 Therapeutic Interventions Therapeutic Interventions Aquatic Therapy,Balance Training,Gait Training,Home Exercise Program,Joint Mobilizations,Manual Therapy, Neuromuscular Re-education, Patient/Caregiver Education, Self-Care/Home Management,Soft Tissue Mobilization,Taping, Therapeutic Activities, Therapeutic Exercises Modalities Cold Pack/Ice Massage,Electric Stimulation,Hot Packs, Ultrasound Next Visit Focus/Plan Next Note Type Treatment Note Next Visit Plan sumo squat, work on wt acceptance w/ unstable surface under R
--- NOTE | 2021-11-24 18:59 | PT.OPPOC ---
Physical, Occupational & Speech Therapy At [facility] Current Diagnoses Stiffness of right knee, not elsewhere classified (11/24/21) Muscle weakness (generalized) (11/24/21) Unsteadiness on feet (11/24/21) Fall on same level, unspecified, initial encounter (11/24/21) Presence of unspecified artificial knee joint (11/24/21) Visit Care Team Role Provider Type Shekhar Olvera MD Primary Care Provider Non-Staff Specialty: Family Practice Address: [address] [place] [address], [id number] Email: Shahzad Fu MD Family Provider Physician Specialty: Orthopedics Orthopedic Surgery Address: [address] [place] [address], [id number] Email: [email or web address] Damon [email or web address] Attending Provider Non-Staff Referring Provider Specialty: Orthopedic Surgery Address: [address] [place] [address], [address], [place], [address] Email: Plan Of Care PT-OP-T Assessment and Plan Start: 07/05/21 15:54 Freq: Status: Active Protocol: Document 11/24/21 16:55 [facility] (Rec: 11/24/21 18:59 [facility] [id number]) Physical Therapy Assessment Goals ambulation Short Term Goal (STG) Pt will be able to amb short distances w/o AD w/good gait mechanics 10/12-can amb w/cane short and long distances but still requires external support 11/24 can walk w/o AD but requires cues STG Duration 12/25 Nursing Home Goal (LTG) Pt will be able to amb 2 miles with 1 walking stick w/o inc pian greater than 2/10. LTG Duration 01/24/22 Three Impairment Decreased function per LEFS score of 17 Impairment LEFS score of 17 indicates 60- 79% impaired. Short Term Goal (STG) Improve function per LEFS score of no less than 32 (40- 59% impaired) 3/8-n/t STG Duration achieved to 39/80 Nursing Home Goal (LTG) Improve function per LEFS score no less than 63 (1-19% impaired). 11/24-n/t LTG Duration 01/24/22 Two Impairment Not able to ambulate without use of assistive device Impairment Gait 76' with FWW/NWBing LLE prior to fatigue. Short Term Goal (STG) Pt will be able to ambulate 100' with FWW with use of an assistive device and greater WBing of LLE when cleared for partial WBing of LLE. 08/23/21: progressinft maintaining PWB 20% of BW w/ FWW, step to gait. STG Duration achieved 38 Nursing Home Goal (LTG) Pt will be able to tolerate no less than 100' gait without use of assistive device when cleared for full WBing of LLE. 08/23/21: progressing 155ft maintaining PWB 20% of BW w/ FWW, step to gait. LTG Duration achieved 8 One Impairment Lacks appropriate self care HEP Short Term Goal (STG) Pt will be independent in a self care HEP to promote ongoing L knee/hip strengthening/ROM and core stabilization. 09/06-advancinga s able STG Duration achieved progressing as able Nursing Home Goal (LTG) Pt will have at least 4+/5 LE MMT in all planes B to show improved stability of hip and knee to improve ability to mobilize int he community 10/12-improving 11/24-cont improvement LTG Duration 01/24 Assessment Summary Assessment Pt had less pain in sumo squat position vs reg squat likely d/t lack of IR ROM in L hip which may be affecting knee joint dynamics. She cont to lack terminal quad ext and another unit was attempted for NMES but only caused pain before quad contraction facilitated. She improved gait when cued and slowed down. Smaller steps imrpoved gait pattern. She would benefit from cont PT to cont to work on gait, strength and balance to improve inc functional ability. Physical Therapy Plan Frequency and Duration Frequency of Treatment 1-2x/wk Duration of Treatment 2 months Plan of Care Start Date 11/24/21 Plan of Care End Date 01/24/22 Therapeutic Interventions Therapeutic Interventions Aquatic Therapy,Balance Training,Gait Training,Home Exercise Program,Joint Mobilizations,Manual Therapy, Neuromuscular Re-education, Patient/Caregiver Education, Self-Care/Home Management,Soft Tissue Mobilization,Taping, Therapeutic Activities, Therapeutic Exercises Modalities Cold Pack/Ice Massage,Electric Stimulation,Hot Packs, Ultrasound Next Visit Focus/Plan Next Note Type Treatment Note Next Visit Plan sumo squat, work on wt acceptance w/ unstable surface under R Plan of Care Dates Plan of Care Start Date 11/24/21 Plan of Care End Date 01/24/22 Electronically Signed by: Brit Peterson, PT 11/24/21 [id number] If you are in agreement with this Plan of Care, please return a signed and dated copy. I have reviewed this Plan of Care and certify that the skilled therapy services above are required to meet the patient?s needs. Physician Signature Date Printed Name and Credentials Clinical Instructor Signature Printed Name and Credentials
--- NOTE | 2021-11-30 13:33 | PT.OTN ---
Current Diagnoses Stiffness of right knee, not elsewhere classified (11/24/21) Muscle weakness (generalized) (11/24/21) Unsteadiness on feet (11/24/21) Fall on same level, unspecified, initial encounter (11/24/21) Presence of unspecified artificial knee joint (11/24/21) Physical Therapy Treatment Note PT-OP-A Visit Information Start: 07/05/21 15:54 Freq: Status: Active Protocol: Document 11/30/21 13:14 LJ (Rec: 11/30/21 13:33 LJ [id number]) Out-Patient Physical Therapy Visit Information Visit Information Visit Type Aquatic Treatment Note Visit Start Time 11:45 Visit Stop Time 12:30 Total Visit Minutes 45 Number of RESOURCE DIRECTOR Visits 1 PT-OP-B Current Condition Start: 07/05/21 15:54 Freq: Status: Active Protocol: Document 07/11/21 15:06 LRN (Rec: 07/11/21 18:30 LRN [id number]) Current Condition History of Current Condition Onset Date 06/28/21 Current Complaints L History of Current Condition Slipper on ice landing on R hip with L leg behind resulting in L distal femur fracture. Pt is 11 days s/p ORIF 06/30/21. PRECAUTIONS: TTWB LLE, knee imimobilizer for comfort, ROM as tolerated L knee. Pt has been doing a HEP (QS, GS, heel slides, assisted hip AB) 2x/day. Pt denies pain except in neck at nighttime during sleep. PMH: [place] TKA, R forefoot fusion, fx R wrist. Prior Treatments and Tests HEP issued post-op. Future Testing and Treatments Planned Pt surgical follow up in 2 days. Treatment Goals Patient/Caregiver Goals Pt goal is to be able to get up and walk when she wants. Pt is agreeable to goal of walkling without the use of an assistive device. Prior Functional Status Baseline Function- ADL's Independent Baseline Function- Mobility Independent Baseline Function- Gait Independent w/o assistive device Baseline Function- Recreation/Hobbies Walked 1.5 miles daily. Hiked with walking pole. Current Functional Impairments (Reported) Functional Limitations- ADL's Wheelchair and walker bound with TTWBing LLE for gait using FWW. Functional Limitations- Mobility/Gait Walked 68' prior to fatigue from UE's. Functional Limitations- Recreation/ Returning to exercise gym for Hobbies neck/shoulder/upper body exercise. Personal Factors Other Personal Factors That May Effect Lives in [place], spouse Therapy/Recovery Marycruz Vega is physical therapy patient at same clinic . Cori TKA, L forefoot fused, herniated disc with discectomy ?L4-L5. Osteopenia. PT-OP-C Subjective Start: 07/05/21 15:54 Freq: Status: Active Protocol: Document 11/30/21 13:14 LJ (Rec: 11/30/21 13:33 LJ [id number]) OP-PT Subjective Patient Comments Patient Comments Pt reports she is seeing ortho soon and would like to undestand why she is still having pain in the LLE. In the house she does not use her cane but outside she is careful with walking around using a cane. PT-OP-G Mobility & Gait Start: 07/05/21 15:54 Freq: Status: Active Protocol: Document 07/11/21 15:06 LRN (Rec: 07/11/21 18:30 LRN [id number]) OP Mobility Evaluation Bed Mobility Supine to and from Sit Independent Transfers Sit to Stand Independent with FWW Bed to Chair Transfers Independent with FWW Car Transfers Independent Wheelchair Management Type of Wheelchair Normal Assessment Details Pt able to self propel and maneuver forward, backward and turn around independently. OP Gait Assessment Gait Gait Assistance Required: Independent Distance (Feet) 76 Able to Maintain Weight Bearing Status No During Gait Assistive Devices Assistive Device Front Wheeled Walker Gait Deviations General Gait Pattern Step-to Gait Comments Gait Comments Pt is TTWB LLE. PT-OP-K Range of Motion Start: 07/05/21 15:54 Freq: Status: Active Protocol: Document 10/12/21 13:46 [facility] (Rec: 10/12/21 14:51 [facility] [id number]) Hip Goniometric Range of Motion Hip Left Active Flexion w/Knee Flexed 115 Abduction 22 Knee Goniometric Range of Motion Knee Left Flexion Active (degrees) 116 Extension Active (degrees) 0 PT-OP-M Strength Start: 07/05/21 15:54 Freq: Status: Active Protocol: Document 11/24/21 16:55 [facility] (Rec: 11/24/21 18:59 [facility] [id number]) Hip Strength Hip Manual Muscle Testing Left Flexion (L2) 4+ Good+ Extension (S1) 4- Good- Abduction 3+ Fair+ Adduction 4 Good External Rotation 4- Good- Internal Rotation 4- Good- Right Flexion (L2) 5 Normal Extension (S1) 4- Good- Abduction 4+ Good+ Adduction 5 Normal External Rotation 5 Normal Internal Rotation 5 Normal Knee Strength Knee Manual Muscle Testing Right Flexion (S2) 5 Normal Extension (L3) 5 Normal Left Flexion (S2) 5 Normal Extension (L3) 3+ Fair+ Ankle/Foot Strength Ankle and Foot Manual Muscle Testing Right Dorsiflexion (L4) 5 Normal Plantarflexion (S1) 5 Normal Left Dorsiflexion (L4) 5 Normal Plantarflexion (S1) 5 Normal Comments PF tested seated PT-OP-Q Treatments Start: 07/05/21 15:54 Freq: Status: Active Protocol: Document 11/24/21 16:55 [facility] (Rec: 11/24/21 18:59 [facility] [id number]) Therapeutic Exercises Standing Exercises step ups Standing Exercise Name 4 in w/rail Side left Reps/Minutes 10 squat Standing Exercise Name 1. squat w/TKE w/band behind L knee 2. sumo squats Side bilateral Reps/Minutes 15 ea Gait Training Gait Activity wt shifts Device Used counter prn Level of Assistance SBA Surface firm Comments wt shifts B w/focus on push off progressed to step through progress to wt shifts at bar for gait gait Comments 1. amb w/o AD working on more fluid gait and not locking knee 2x75ft Neuro Re-Education Treatment Balance Activities SLS Comments 1. SLS w/rolling ball under RLE 2. SLS w/RLE on bosu w/twists & reaching in all directions PT-OP-S Aquatic Treatment Start: 08/26/21 14:30 Freq: Status: Active Protocol: Document 11/30/21 13:14 LJ (Rec: 11/30/21 13:33 LJ [id number]) Aquatics Treatment Pool Entry/Exit Pool Entry/Exit Method Stairs Assistance Independent Comments cori UE support Water Walking walking with LE floatation Water Level Waist Level Walking Equipment Ankle Floats, lg noodle LLE, sm noodle RLE under feet Comments walking forward and sideways Lunge Walk Water Level Waist Level Walking Equipment Ankle Weight- 5.0# [place] March Water Level Chest Level Comments large ankle floats Marching Water Level Waist Level Walking Equipment Ankle Floats Lower Extremity Exercises hip abd with resistnce Body Position Standing Water Level Waist Level Equipment stretch cords Reps/Duration 2x 15 LLE, 2x 10 RLE Comments also hip ext HS curl Body Position Standing Water Level [place] Equipment Resistance Fins Reps/Duration 15 x 2 B Comments med fins Lower Extremity Stretches gastroc, HS, soleus Details assisted Body Position Standing Water Level Waist Level Reps/Duration 2 x 45' LLE Comments noodle under ankle TFL Details at wall Body Position Standing Water Level Chest Level Equipment large ankle floats cori Reps/Duration 2 x 30' B quads, hip flexors Details at wall Body Position Standing Water Level Waist Level Equipment large ankle floats cori Reps/Duration 2 x 30 B [place] Activities [place] Activities Bicycle,Running Other Activities Sit kicks HS curls deep kicks oblique abdominals in corner prone extension Equipment belt, med fins Comments 2x 15 reps each exericse above with 4 min running and bicycle before and after PT-OP-T Assessment and Plan Start: 07/05/21 15:54 Freq: Status: Active Protocol: Document 11/30/21 13:14 VIK (Rec: 11/30/21 13:33 VIK [id number]) Physical Therapy Assessment Rehab Potential Rehabilitation Potential Excellent Evaluation Complexity Number of Personal Factors/Comorbidities 3 or More Number of Body Systems Impaired 4 or More Clinical Presentation at Evaluation Evolving Impairments Impairments Activity Tolerance,Functional Activities,Functional Mobility ,Gait,ROM,Soft Tissue Mobility ,Strength Goals ambulation Short Term Goal (STG) Pt will be able to amb short distances w/o AD w/good gait mechanics 10/12-can amb w/cane short and long distances but still requires external support 11/24 can walk w/o AD but requires cues STG Duration 12/25 Shelter Goal (LTG) Pt will be able to amb 2 miles with 1 walking stick w/o inc pian greater than 2/10. LTG Duration 01/24/22 Three Impairment Decreased function per LEFS score of 17 Impairment LEFS score of 17 indicates 60- 79% impaired. Short Term Goal (STG) Improve function per LEFS score of no less than 32 (40- 59% impaired) 09/06-n/t STG Duration achieved to 39/80 [employer] Man Goal (LTG) Improve function per LEFS score no less than 63 (1-19% impaired). 11/24-n/t LTG Duration 01/24/22 One Impairment Lacks appropriate self care HEP Short Term Goal (STG) Pt will be independent in a self care HEP to promote ongoing L knee/hip strengthening/ROM and core stabilization. 09/06-advancinga s able STG Duration achieved progressing as able Shelter Goal (LTG) Pt will have at least 4+/5 LE MMT in all planes B to show improved stability of hip and knee to improve ability to mobilize int he community 10/12-improving 11/24-cont improvement LTG Duration 01/24 Assessment Summary Assessment Pt had no difficulty or pain with increased effort and resistance. She didn't report any clicking in LLE knee joint during any of the exercises. She stayed for several minutes after session walking in shallow water. Physical Therapy Plan Frequency and Duration Frequency of Treatment 1-2x/wk Duration of Treatment 2 months Plan of Care Start Date 11/24/21 Plan of Care End Date 01/24/22 Therapeutic Interventions Therapeutic Interventions Aquatic Therapy,Balance Training,Gait Training,Home Exercise Program,Joint Mobilizations,Manual Therapy, Neuromuscular Re-education, Patient/Caregiver Education, Self-Care/Home Management,Soft Tissue Mobilization,Taping, Therapeutic Activities, Therapeutic Exercises Modalities Cold Pack/Ice Massage,Electric Stimulation,Hot Packs, Ultrasound Next Visit Focus/Plan Next Note Type Treatment Note Next Visit Plan sumo squat, work on wt acceptance w/ unstable surface under R Aquatics: continue with strengthening and balance activities for improved gait and activity tolerance.
--- NOTE | 2021-12-05 17:04 | PT.OTN ---
Current Diagnoses Stiffness of right knee, not elsewhere classified (12/05/21) Muscle weakness (generalized) (12/05/21) Unsteadiness on feet (12/05/21) Fall on same level, unspecified, initial encounter (12/05/21) Presence of unspecified artificial knee joint (12/05/21) Physical Therapy Treatment Note PT-OP-A Visit Information Start: 07/05/21 15:54 Freq: Status: Active Protocol: Document 12/05/21 14:32 SAK (Rec: 12/05/21 15:18 SAK [id number]) Out-Patient Physical Therapy Visit Information Visit Information Visit Type Treatment Note Visit Start Time 14:30 Visit Stop Time 15:15 Total Visit Minutes 45 Visit Number 31 PT-OP-B Current Condition Start: 07/05/21 15:54 Freq: Status: Active Protocol: Document 07/11/21 15:06 LRN (Rec: 07/11/21 18:30 LRN [id number]) Current Condition History of Current Condition Onset Date 06/28/21 Current Complaints L History of Current Condition Slipper on ice landing on R hip with L leg behind resulting in L distal femur fracture. Pt is 11 days s/p ORIF 06/30/21. PRECAUTIONS: TTWB LLE, knee imimobilizer for comfort, ROM as tolerated L knee. Pt has been doing a HEP (QS, GS, heel slides, assisted hip AB) 2x/day. Pt denies pain except in neck at nighttime during sleep. PMH: Cori TKA, R forefoot fusion, fx R wrist. Prior Treatments and Tests HEP issued post-op. Future Testing and Treatments Planned Pt surgical follow up in 2 days. Treatment Goals Patient/Caregiver Goals Pt goal is to be able to get up and walk when she wants. Pt is agreeable to goal of walkling without the use of an assistive device. Prior Functional Status Baseline Function- ADL's Independent Baseline Function- Mobility Independent Baseline Function- Gait Independent w/o assistive device Baseline Function- Recreation/Hobbies Walked 1.5 miles daily. Hiked with walking pole. Current Functional Impairments (Reported) Functional Limitations- ADL's Wheelchair and walker bound with TTWBing LLE for gait using FWW. Functional Limitations- Mobility/Gait Walked 68' prior to fatigue from UE's. Functional Limitations- Recreation/ Returning to exercise gym for Hobbies neck/shoulder/upper body exercise. Personal Factors Other Personal Factors That May Effect Lives in [place], spouse Therapy/Recovery Marycruz Gary is physical therapy patient at same clinic . Cori TKA, L forefoot fused, herniated disc with discectomy ?L4-L5. Osteopenia. PT-OP-C Subjective Start: 07/05/21 15:54 Freq: Status: Active Protocol: Document 12/05/21 14:32 SAK (Rec: 12/05/21 15:18 SAK [id number]) OP-PT Subjective Patient Comments Patient Comments Saw ortho about hip, 12/01/21, scheduled to have left DORY by doctor Ronny in [place]. Not having popping pain in knee. Unable to ambulate on stairs without railing, step-to pattern on standard height stairs. PT-OP-G Mobility & Gait Start: 07/05/21 15:54 Freq: Status: Active Protocol: Document 07/11/21 15:06 LRN (Rec: 07/11/21 18:30 LRN [id number]) OP Mobility Evaluation Bed Mobility Supine to and from Sit Independent Transfers Sit to Stand Independent with FWW Bed to Chair Transfers Independent with FWW Car Transfers Independent Wheelchair Management Type of Wheelchair Normal Assessment Details Pt able to self propel and maneuver forward, backward and turn around independently. OP Gait Assessment Gait Gait Assistance Required: Independent Distance (Feet) 76 Able to Maintain Weight Bearing Status No During Gait Assistive Devices Assistive Device Front Wheeled Walker Gait Deviations General Gait Pattern Step-to Gait Comments Gait Comments Pt is TTWB LLE. PT-OP-K Range of Motion Start: 07/05/21 15:54 Freq: Status: Active Protocol: Document 10/12/21 13:46 [facility] (Rec: 10/12/21 14:51 [facility] [id number]) Hip Goniometric Range of Motion Hip Left Active Flexion w/Knee Flexed 115 Abduction 22 Knee Goniometric Range of Motion Knee Left Flexion Active (degrees) 116 Extension Active (degrees) 0 PT-OP-M Strength Start: 07/05/21 15:54 Freq: Status: Active Protocol: Document 11/24/21 16:55 LR (Rec: 11/24/21 18:59 [facility] [id number]) Hip Strength Hip Manual Muscle Testing Left Flexion (L2) 4+ Good+ Extension (S1) 4- Good- Abduction 3+ Fair+ Adduction 4 Good External Rotation 4- Good- Internal Rotation 4- Good- Right Flexion (L2) 5 Normal Extension (S1) 4- Good- Abduction 4+ Good+ Adduction 5 Normal External Rotation 5 Normal Internal Rotation 5 Normal Knee Strength Knee Manual Muscle Testing Right Flexion (S2) 5 Normal Extension (L3) 5 Normal Left Flexion (S2) 5 Normal Extension (L3) 3+ Fair+ Ankle/Foot Strength Ankle and Foot Manual Muscle Testing Right Dorsiflexion (L4) 5 Normal Plantarflexion (S1) 5 Normal Left Dorsiflexion (L4) 5 Normal Plantarflexion (S1) 5 Normal Comments PF tested seated PT-OP-Q Treatments Start: 07/05/21 15:54 Freq: Status: Active Protocol: Document 12/05/21 14:32 SAK (Rec: 12/05/21 15:18 SAK [id number]) Gym Equipment Shuttle Balance red Details WBOS, stagger, side balance and weight shifts Reps/Duration 12 Comments Cued: wt equal BLE, soft knees Sport Cord green Exercise Details forward Cord/Resistance green Reps/Duration 5x Comments cues for soft knee left, glut activation, dec speed emphasis on weight acceptance and stability Therapeutic Exercises Prone Exercises quad stretch Prone Exercise Name L w/ strap Equipment Used pillow under pelvis Reps/Minutes 60 x2 Comments self HEP Standing Exercises step ups Standing Exercise Name 4 in w/rail; as litle as possible Side left Equipment Used 4 in stairs Reps/Minutes 4x Comments alternating as able step up and down squat Comments verbal review only, patient to do at home Gait Training Gait Activity wt shifts Device Used bar PRN Level of Assistance SBA Surface firm Comments wt shifts B w/focus on push off progressed to step through progress to wt shifts at bar for gait gait Distance/Duration 75 ft x 2 Comments 1. amb w/o AD working on more fluid gait and not locking knee stair mgt Comments as above with step-ups Self-Care/Home Management Treatment Education Other Education squats: standard vs sumo as tolerated PT-OP-S Aquatic Treatment Start: 08/26/21 14:30 Freq: Status: Active Protocol: Document 11/30/21 13:14 VIK (Rec: 11/30/21 13:33 LJ [id number]) Aquatics Treatment Pool Entry/Exit Pool Entry/Exit Method Stairs Assistance Independent Comments cori UE support Water Walking walking with LE floatation Water Level Waist Level Walking Equipment Ankle Floats, lg noodle LLE, sm noodle RLE under feet Comments walking forward and sideways Lunge Walk Water Level Waist Level Walking Equipment Ankle Weight- 5.0# [place] March Water Level Chest Level Comments large ankle floats Marching Water Level Waist Level Walking Equipment Ankle Floats Lower Extremity Exercises hip abd with resistnce Body Position Standing Water Level Waist Level Equipment stretch cords Reps/Duration 2x 15 LLE, 2x 10 RLE Comments also hip ext HS curl Body Position Standing Water Level [place] Equipment Resistance Fins Reps/Duration 15 x 2 B Comments med fins Lower Extremity Stretches gastroc, HS, soleus Details assisted Body Position Standing Water Level Waist Level Reps/Duration 2 x 45' LLE Comments noodle under ankle TFL Details at wall Body Position Standing Water Level Chest Level Equipment large ankle floats cori Reps/Duration 2 x 30' B quads, hip flexors Details at wall Body Position Standing Water Level Waist Level Equipment large ankle floats cori Reps/Duration 2 x 30 B [place] Activities [place] Activities Bicycle,Running Other Activities Sit kicks HS curls deep kicks oblique abdominals in corner prone extension Equipment belt, med fins Comments 2x 15 reps each exericse above with 4 min running and bicycle before and after PT-OP-T Assessment and Plan Start: 07/05/21 15:54 Freq: Status: Active Protocol: Document 12/05/21 14:32 [facility] (Rec: 12/05/21 15:18 [facility] [id number]) Physical Therapy Assessment Goals ambulation Short Term Goal (STG) Pt will be able to amb short distances w/o AD w/good gait mechanics 10/12-can amb w/cane short and long distances but still requires external support 11/24 can walk w/o AD but requires cues STG Duration 12/25 [facility] Goal (LTG) Pt will be able to amb 2 miles with 1 walking stick w/o inc pian greater than 2/10. LTG Duration 01/24/22 Three Impairment Decreased function per LEFS score of 17 Impairment LEFS score of 17 indicates 60- 79% impaired. Short Term Goal (STG) Improve function per LEFS score of no less than 32 (40- 59% impaired) 09/06-n/t STG Duration achieved to 39/80 Pupp[employer] Engineer Goal (LTG) Improve function per LEFS score no less than 63 (1-19% impaired). 11/24-n/t LTG Duration 01/24/22 One Impairment Lacks appropriate self care HEP Short Term Goal (STG) Pt will be independent in a self care HEP to promote ongoing L knee/hip strengthening/ROM and core stabilization. 09/06-advancinga s able STG Duration achieved progressing as able [facility] Goal (LTG) Pt will have at least 4+/5 LE MMT in all planes B to show improved stability of hip and knee to improve ability to mobilize int he community 10/12-improving 11/24-cont improvement LTG Duration 01/24 Assessment Summary Assessment No clicking or popping in knee recently. Patient has been schedule for left DORY 12/27/21. When slowed down with shorter steps and with cues for weight acceptance, muscle activation sequences patient able to ambulate with approx 30% knee locking. She continues to have frequent instances of feeling her knee is going to give way. No pain or clicking in knee recently. Physical Therapy Plan Frequency and Duration Frequency of Treatment 1-2x/wk Duration of Treatment 2 months Plan of Care Start Date 11/24/21 Plan of Care End Date 01/24/22 Therapeutic Interventions Therapeutic Interventions Aquatic Therapy,Balance Training,Gait Training,Home Exercise Program,Joint Mobilizations,Manual Therapy, Neuromuscular Re-education, Patient/Caregiver Education, Self-Care/Home Management,Soft Tissue Mobilization,Taping, Therapeutic Activities, Therapeutic Exercises Modalities Cold Pack/Ice Massage,Electric Stimulation,Hot Packs, Ultrasound Next Visit Focus/Plan Next Note Type Treatment Note Next Visit Plan sumo squat, work on wt acceptance w/ unstable surface under R Aquatics: continue with strengthening and balance activities for improved gait and activity tolerance, left knee strengthening for improved safety and function on land.
--- NOTE | 2021-12-12 14:22 | PT-OP ANOTE ---
cancelled due to migraine
--- NOTE | 2021-12-14 15:13 | PT.OTN ---
Current Diagnoses Stiffness of right knee, not elsewhere classified (12/14/21) Muscle weakness (generalized) (12/14/21) Unsteadiness on feet (12/14/21) Fall on same level, unspecified, initial encounter (12/14/21) Presence of unspecified artificial knee joint (12/14/21) Physical Therapy Treatment Note PT-OP-A Visit Information Start: 07/05/21 15:54 Freq: Status: Active Protocol: Document 12/14/21 15:00 LJ (Rec: 12/14/21 15:13 LJ [id number]) Out-Patient Physical Therapy Visit Information Visit Information Visit Type Aquatic Treatment Note Visit Start Time 12:30 Visit Stop Time 13:15 Total Visit Minutes 45 Visit Number 33 Number of ELECTROLYSIS NEEDLE OPERATOR Visits 1 PT-OP-B Current Condition Start: 07/05/21 15:54 Freq: Status: Active Protocol: Document 07/11/21 15:06 LRN (Rec: 07/11/21 18:30 LRN [id number]) Current Condition History of Current Condition Onset Date 06/28/21 Current Complaints L History of Current Condition Slipper on ice landing on R hip with L leg behind resulting in L distal femur fracture. Pt is 11 days s/p ORIF 06/30/21. PRECAUTIONS: TTWB LLE, knee imimobilizer for comfort, ROM as tolerated L knee. Pt has been doing a HEP (QS, GS, heel slides, assisted hip AB) 2x/day. Pt denies pain except in neck at nighttime during sleep. PMH: Cori TKA, R forefoot fusion, fx R wrist. Prior Treatments and Tests HEP issued post-op. Future Testing and Treatments Planned Pt surgical follow up in 2 days. Treatment Goals Patient/Caregiver Goals Pt goal is to be able to get up and walk when she wants. Pt is agreeable to goal of walkling without the use of an assistive device. Prior Functional Status Baseline Function- ADL's Independent Baseline Function- Mobility Independent Baseline Function- Gait Independent w/o assistive device Baseline Function- Recreation/Hobbies Walked 1.5 miles daily. Hiked with walking pole. Current Functional Impairments (Reported) Functional Limitations- ADL's Wheelchair and walker bound with TTWBing LLE for gait using FWW. Functional Limitations- Mobility/Gait Walked 68' prior to fatigue from UE's. Functional Limitations- Recreation/ Returning to exercise gym for Hobbies neck/shoulder/upper body exercise. Personal Factors Other Personal Factors That May Effect Lives in [place], spouse Therapy/Recovery Marycruz Vega is physical therapy patient at same clinic . Cori TKA, L forefoot fused, herniated disc with discectomy ?L4-L5. Osteopenia. PT-OP-C Subjective Start: 07/05/21 15:54 Freq: Status: Active Protocol: Document 12/14/21 15:00 LJ (Rec: 12/14/21 15:13 LJ [id number]) OP-PT Subjective Patient Comments Patient Comments Pt reports she has continued working out at the gym but personal banking advisor is out. She will be having a hip replacement very soon and wants to get back to normal before her trip in June. States she feels that she has made little strength gains in her hip since the fracture and she feels the upcoming surgery will be beneficial. PT-OP-G Mobility & Gait Start: 07/05/21 15:54 Freq: Status: Active Protocol: Document 07/11/21 15:06 LRN (Rec: 07/11/21 18:30 LRN [id number]) OP Mobility Evaluation Bed Mobility Supine to and from Sit Independent Transfers Sit to Stand Independent with FWW Bed to Chair Transfers Independent with FWW Car Transfers Independent Wheelchair Management Type of Wheelchair Normal Assessment Details Pt able to self propel and maneuver forward, backward and turn around independently. OP Gait Assessment Gait Gait Assistance Required: Independent Distance (Feet) 76 Able to Maintain Weight Bearing Status No During Gait Assistive Devices Assistive Device Front Wheeled Walker Gait Deviations General Gait Pattern Step-to Gait Comments Gait Comments Pt is TTWB LLE. PT-OP-K Range of Motion Start: 07/05/21 15:54 Freq: Status: Active Protocol: Document 10/12/21 13:46 [facility] (Rec: 10/12/21 14:51 [facility] [id number]) Hip Goniometric Range of Motion Hip Left Active Flexion w/Knee Flexed 115 Abduction 22 Knee Goniometric Range of Motion Knee Left Flexion Active (degrees) 116 Extension Active (degrees) 0 PT-OP-M Strength Start: 07/05/21 15:54 Freq: Status: Active Protocol: Document 11/24/21 16:55 [facility] (Rec: 11/24/21 18:59 [facility] [id number]) Hip Strength Hip Manual Muscle Testing Left Flexion (L2) 4+ Good+ Extension (S1) 4- Good- Abduction 3+ Fair+ Adduction 4 Good External Rotation 4- Good- Internal Rotation 4- Good- Right Flexion (L2) 5 Normal Extension (S1) 4- Good- Abduction 4+ Good+ Adduction 5 Normal External Rotation 5 Normal Internal Rotation 5 Normal Knee Strength Knee Manual Muscle Testing Right Flexion (S2) 5 Normal Extension (L3) 5 Normal Left Flexion (S2) 5 Normal Extension (L3) 3+ Fair+ Ankle/Foot Strength Ankle and Foot Manual Muscle Testing Right Dorsiflexion (L4) 5 Normal Plantarflexion (S1) 5 Normal Left Dorsiflexion (L4) 5 Normal Plantarflexion (S1) 5 Normal Comments PF tested seated PT-OP-Q Treatments Start: 07/05/21 15:54 Freq: Status: Active Protocol: Document 12/05/21 14:32 SAK (Rec: 12/05/21 15:18 SAK [id number]) Gym Equipment Shuttle Balance red Details WBOS, stagger, side balance and weight shifts Reps/Duration 12 Comments Cued: wt equal BLE, soft knees Sport Cord green Exercise Details forward Cord/Resistance green Reps/Duration 5x Comments cues for soft knee left, glut activation, dec speed emphasis on weight acceptance and stability Therapeutic Exercises Prone Exercises quad stretch Prone Exercise Name L w/ strap Equipment Used pillow under pelvis Reps/Minutes 60 x2 Comments self HEP Standing Exercises step ups Standing Exercise Name 4 in w/rail; as litle as possible Side left Equipment Used 4 in stairs Reps/Minutes 4x Comments alternating as able step up and down squat Comments verbal review only, patient to do at home Gait Training Gait Activity wt shifts Device Used bar PRN Level of Assistance SBA Surface firm Comments wt shifts B w/focus on push off progressed to step through progress to wt shifts at bar for gait gait Distance/Duration 75 ft x 2 Comments 1. amb w/o AD working on more fluid gait and not locking knee stair mgt Comments as above with step-ups Self-Care/Home Management Treatment Education Other Education squats: standard vs sumo as tolerated PT-OP-S Aquatic Treatment Start: 08/26/21 14:30 Freq: Status: Active Protocol: Document 12/14/21 15:00 LJ (Rec: 12/14/21 15:13 VIK [id number]) Aquatics Treatment Pool Entry/Exit Pool Entry/Exit Method Stairs Assistance Independent Comments cori UE support Water Walking walking with LE floatation Water Level Waist Level Walking Equipment Ankle Floats Comments walking forward and sideways march kick Water Level Chest Level Walking Equipment Ankle Floats step-overs Water Level Chest Level Walking Equipment Ankle Floats Comments fwd and back, 8 boxes step-ups Water Level Waist Level Walking Equipment Ankle Floats Comments 10x2, 8 boxes, cues for quad and gluteal engagement Lunge Walk Water Level Waist Level Walking Equipment Ankle Floats Comments fwd/bkw Lower Extremity Exercises hip abd with resistnce Body Position Standing Water Level Waist Level Equipment stretch cords Reps/Duration 2x 15 LLE, 2x 10 RLE Comments also hip ext seated knee fl/ext Body Position Sitting Water Level Neck Level Equipment Ankle Weight- 5.0# Reps/Duration 10x2 hip f/e;ab/ad;circles Details hh on wall (min) Body Position Standing Water Level Chest Level Reps/Duration 20x B Comments large ankle floats Lower Extremity Stretches LAQ Body Position Standing Water Level Waist Level Equipment Resistance Fins Reps/Duration 20x Comments min UE support for balance, gastroc, HS, soleus Details assisted Body Position Standing Water Level Waist Level Reps/Duration 2 x 45' LLE Comments noodle under ankle TFL Details at wall Body Position Standing Water Level Chest Level Equipment large ankle floats cori Reps/Duration 2 x 30' B quads, hip flexors Details at wall Body Position Standing Water Level Waist Level Equipment large ankle floats cori Reps/Duration 2 x 30 B Spinal Exercises squats Details double and single leg Body Position Standing Water Level Waist Level Equipment stretch cords [place] Activities [place] Activities Bicycle,[place] Other Activities Sit kicks HS curls deep kicks oblique abdominals in corner prone extension Equipment belt, lg resistance fins Comments 2x 15 reps ski in all directions w/o use of UEs-f,b,side,side-slight pn in left hip going to the left ; LEs swinging to right side demonstrating L side weakness PT-OP-T Assessment and Plan Start: 07/05/21 15:54 Freq: Status: Active Protocol: Document 12/14/21 15:00 VIK (Rec: 12/14/21 15:13 LJ [id number]) Physical Therapy Assessment Impairments Impairments Activity Tolerance,Functional Activities,Functional Mobility ,Gait,ROM,Soft Tissue Mobility ,Strength Goals ambulation Short Term Goal (STG) Pt will be able to amb short distances w/o AD w/good gait mechanics 10/12-can amb w/cane short and long distances but still requires external support 11/24 can walk w/o AD but requires cues STG Duration 12/25 Plc Controls Engineer Goal (LTG) Pt will be able to amb 2 miles with 1 walking stick w/o inc pian greater than 2/10. LTG Duration 01/24/22 Three Impairment Decreased function per LEFS score of 17 Impairment LEFS score of 17 indicates 60- 79% impaired. Short Term Goal (STG) Improve function per LEFS score of no less than 32 (40- 59% impaired) 09/06-n/t STG Duration achieved to 39/80 Fpc Goal (LTG) Improve function per LEFS score no less than 63 (1-19% impaired). 11/24-n/t LTG Duration 01/24/22 One Impairment Lacks appropriate self care HEP Short Term Goal (STG) Pt will be independent in a self care HEP to promote ongoing L knee/hip strengthening/ROM and core stabilization. 09/06-advancinga s able STG Duration achieved progressing as able Fpc Goal (LTG) Pt will have at least 4+/5 LE MMT in all planes B to show improved stability of hip and knee to improve ability to mobilize int he community 10/12-improving 11/24-cont improvement LTG Duration 01/24 Assessment Summary Assessment Pt demonstrated improved balance with step-ups at waist level. Unable to lower self down with control unless holding onto side. Pt hyperextending L knee upon exiting the stairs. Physical Therapy Plan Frequency and Duration Frequency of Treatment 1-2x/wk Duration of Treatment 2 months Plan of Care Start Date 11/24/21 Plan of Care End Date 01/24/22 Therapeutic Interventions Therapeutic Interventions Aquatic Therapy,Balance Training,Gait Training,Home Exercise Program,Joint Mobilizations,Manual Therapy, Neuromuscular Re-education, Patient/Caregiver Education, Self-Care/Home Management,Soft Tissue Mobilization,Taping, Therapeutic Activities, Therapeutic Exercises Modalities Cold Pack/Ice Massage,Electric Stimulation,Hot Packs, Ultrasound Next Visit Focus/Plan Next Note Type Treatment Note Next Visit Plan sumo squat, work on wt acceptance w/ unstable surface under R Aquatics: continue with strengthening and balance activities for improved gait and activity tolerance, left knee strengthening for improved safety and function on land.
--- NOTE | 2021-12-21 11:45 | PT.OTN ---
Current Diagnoses Stiffness of right knee, not elsewhere classified (12/21/21) Muscle weakness (generalized) (12/21/21) Unsteadiness on feet (12/21/21) Fall on same level, unspecified, initial encounter (12/21/21) Presence of unspecified artificial knee joint (12/21/21) Physical Therapy Treatment Note PT-OP-A Visit Information Start: 07/05/21 15:54 Freq: Status: Active Protocol: Document 12/21/21 11:45 SAK (Rec: 12/22/21 17:39 SAK [id number]) Out-Patient Physical Therapy Visit Information Visit Information Visit Type Aquatic Treatment Note Visit Start Time 11:45 Visit Stop Time 12:30 Total Visit Minutes 45 Visit Number 34 Number of SHAKER FLATWORK Visits 1 PT-OP-B Current Condition Start: 07/05/21 15:54 Freq: Status: Active Protocol: Document 07/11/21 15:06 LRN (Rec: 07/11/21 18:30 LRN [id number]) Current Condition History of Current Condition Onset Date 06/28/21 Current Complaints L History of Current Condition Slipper on ice landing on R hip with L leg behind resulting in L distal femur fracture. Pt is 11 days s/p ORIF 06/30/21. PRECAUTIONS: TTWB LLE, knee imimobilizer for comfort, ROM as tolerated L knee. Pt has been doing a HEP (QS, GS, heel slides, assisted hip AB) 2x/day. Pt denies pain except in neck at nighttime during sleep. PMH: Cori TKA, R forefoot fusion, fx R wrist. Prior Treatments and Tests HEP issued post-op. Future Testing and Treatments Planned Pt surgical follow up in 2 days. Treatment Goals Patient/Caregiver Goals Pt goal is to be able to get up and walk when she wants. Pt is agreeable to goal of walkling without the use of an assistive device. Prior Functional Status Baseline Function- ADL's Independent Baseline Function- Mobility Independent Baseline Function- Gait Independent w/o assistive device Baseline Function- Recreation/Hobbies Walked 1.5 miles daily. Hiked with walking pole. Current Functional Impairments (Reported) Functional Limitations- ADL's Wheelchair and walker bound with TTWBing LLE for gait using FWW. Functional Limitations- Mobility/Gait Walked 68' prior to fatigue from UE's. Functional Limitations- Recreation/ Returning to exercise gym for Hobbies neck/shoulder/upper body exercise. Personal Factors Other Personal Factors That May Effect Lives in [place], spouse Therapy/Recovery Marycruz Vega is physical therapy patient at same clinic . Cori TKA, L forefoot fused, herniated disc with discectomy ?L4-L5. Osteopenia. PT-OP-C Subjective Start: 07/05/21 15:54 Freq: Status: Active Protocol: Document 12/21/21 11:45 SAK (Rec: 12/22/21 17:39 SAK [id number]) OP-PT Subjective Patient Comments Patient Comments Patient reports she will be having DORY next week. PT-OP-G Mobility & Gait Start: 07/05/21 15:54 Freq: Status: Active Protocol: Document 07/11/21 15:06 LRN (Rec: 07/11/21 18:30 LRN [id number]) OP Mobility Evaluation Bed Mobility Supine to and from Sit Independent Transfers Sit to Stand Independent with FWW Bed to Chair Transfers Independent with FWW Car Transfers Independent Wheelchair Management Type of Wheelchair Normal Assessment Details Pt able to self propel and maneuver forward, backward and turn around independently. OP Gait Assessment Gait Gait Assistance Required: Independent Distance (Feet) 76 Able to Maintain Weight Bearing Status No During Gait Assistive Devices Assistive Device Front Wheeled Walker Gait Deviations General Gait Pattern Step-to Gait Comments Gait Comments Pt is TTWB LLE. PT-OP-K Range of Motion Start: 07/05/21 15:54 Freq: Status: Active Protocol: Document 10/12/21 13:46 [facility] (Rec: 10/12/21 14:51 [facility] [id number]) Hip Goniometric Range of Motion Hip Left Active Flexion w/Knee Flexed 115 Abduction 22 Knee Goniometric Range of Motion Knee Left Flexion Active (degrees) 116 Extension Active (degrees) 0 PT-OP-M Strength Start: 07/05/21 15:54 Freq: Status: Active Protocol: Document 11/24/21 16:55 [facility] (Rec: 11/24/21 18:59 [facility] [id number]) Hip Strength Hip Manual Muscle Testing Left Flexion (L2) 4+ Good+ Extension (S1) 4- Good- Abduction 3+ Fair+ Adduction 4 Good External Rotation 4- Good- Internal Rotation 4- Good- Right Flexion (L2) 5 Normal Extension (S1) 4- Good- Abduction 4+ Good+ Adduction 5 Normal External Rotation 5 Normal Internal Rotation 5 Normal Knee Strength Knee Manual Muscle Testing Right Flexion (S2) 5 Normal Extension (L3) 5 Normal Left Flexion (S2) 5 Normal Extension (L3) 3+ Fair+ Ankle/Foot Strength Ankle and Foot Manual Muscle Testing Right Dorsiflexion (L4) 5 Normal Plantarflexion (S1) 5 Normal Left Dorsiflexion (L4) 5 Normal Plantarflexion (S1) 5 Normal Comments PF tested seated PT-OP-Q Treatments Start: 07/05/21 15:54 Freq: Status: Active Protocol: Document 12/05/21 14:32 [facility] (Rec: 12/05/21 15:18 [facility] [id number]) Gym Equipment Shuttle Balance red Details WBOS, stagger, side balance and weight shifts Reps/Duration 12 Comments Cued: wt equal BLE, soft knees Sport Cord green Exercise Details forward Cord/Resistance green Reps/Duration 5x Comments cues for soft knee left, glut activation, dec speed emphasis on weight acceptance and stability Therapeutic Exercises Prone Exercises quad stretch Prone Exercise Name L w/ strap Equipment Used pillow under pelvis Reps/Minutes 60 x2 Comments self HEP Standing Exercises step ups Standing Exercise Name 4 in w/rail; as litle as possible Side left Equipment Used 4 in stairs Reps/Minutes 4x Comments alternating as able step up and down squat Comments verbal review only, patient to do at home Gait Training Gait Activity wt shifts Device Used bar PRN Level of Assistance SBA Surface firm Comments wt shifts B w/focus on push off progressed to step through progress to wt shifts at bar for gait gait Distance/Duration 75 ft x 2 Comments 1. amb w/o AD working on more fluid gait and not locking knee stair mgt Comments as above with step-ups Self-Care/Home Management Treatment Education Other Education squats: standard vs sumo as tolerated PT-OP-S Aquatic Treatment Start: 08/26/21 14:30 Freq: Status: Active Protocol: Document 12/21/21 11:45 [facility] (Rec: 12/22/21 17:39 [facility] [id number]) Aquatics Treatment Pool Entry/Exit Pool Entry/Exit Method Stairs Assistance Independent Comments cori UE support Water Walking walking with LE floatation Water Level Waist Level Walking Equipment Ankle Floats Comments walking forward and sideways fast walking Water Level Chest Level Comments large ankle floats, large fins march kick Water Level Chest Level Walking Equipment Ankle Floats step-overs Water Level Chest Level Walking Equipment Ankle Floats Comments fwd and back, 8 boxes step-ups Water Level Waist Level Walking Equipment Ankle Floats Comments 10x2, 8 boxes, cues for quad and gluteal engagement Lunge Walk Water Level Waist Level Walking Equipment Ankle Floats Comments fwd/bkw Marching Water Level Waist Level Walking Equipment Ankle Floats, fins Forwards Water Level Chest Level Walking Equipment fins Lower Extremity Exercises hip abd with resistnce Body Position Standing Water Level Waist Level Equipment stretch cords Reps/Duration 2x 15 LLE, 2x 10 RLE Comments also hip ext noodle push down Body Position Standing Water Level Chest Level Equipment Large Noodle Comments no UE support hip f/e;ab/ad;circles Details hh on wall (min) Body Position Standing Water Level Chest Level Reps/Duration 20x B Comments large ankle floats Lower Extremity Stretches LAQ Body Position Standing Water Level Waist Level Equipment fins Reps/Duration 20x Comments min UE support for balance, TFL Details at wall Body Position Standing Water Level Chest Level Equipment large ankle floats cori Reps/Duration 2 x 30' B quads, hip flexors Details at wall Body Position Standing Water Level Waist Level Equipment large ankle floats cori Reps/Duration 2 x 30 B [place] Activities [place] Activities Bicycle,Cross [place] Other Activities Sit kicks deep kicks Equipment belt, fins PT-OP-T Assessment and Plan Start: 07/05/21 15:54 Freq: Status: Active Protocol: Document 12/21/21 11:45 [facility] (Rec: 12/22/21 17:39 [facility] [id number]) Physical Therapy Assessment Goals ambulation Short Term Goal (STG) Pt will be able to amb short distances w/o AD w/good gait mechanics 10/12-can amb w/cane short and long distances but still requires external support 11/24 can walk w/o AD but requires cues STG Duration 12/25 Half-Way Goal (LTG) Pt will be able to amb 2 miles with 1 walking stick w/o inc pian greater than 2/10. LTG Duration 01/24/22 Three Impairment Decreased function per LEFS score of 17 Impairment LEFS score of 17 indicates 60- 79% impaired. Short Term Goal (STG) Improve function per LEFS score of no less than 32 (40- 59% impaired) 09/06-n/t STG Duration achieved to 39/80 Extension Course Coordinator Goal (LTG) Improve function per LEFS score no less than 63 (1-19% impaired). 11/24-n/t LTG Duration 01/24/22 One Impairment Lacks appropriate self care HEP Short Term Goal (STG) Pt will be independent in a self care HEP to promote ongoing L knee/hip strengthening/ROM and core stabilization. 09/06-advancinga s able STG Duration achieved progressing as able Extension Course Coordinator Goal (LTG) Pt will have at least 4+/5 LE MMT in all planes B to show improved stability of hip and knee to improve ability to mobilize int he community 10/12-improving 11/24-cont improvement LTG Duration 01/24 Physical Therapy Plan Frequency and Duration Frequency of Treatment 1-2x/wk Duration of Treatment 2 months Plan of Care Start Date 11/24/21 Plan of Care End Date 01/24/22 Therapeutic Interventions Therapeutic Interventions Aquatic Therapy,Balance Training,Gait Training,Home Exercise Program,Joint Mobilizations,Manual Therapy, Neuromuscular Re-education, Patient/Caregiver Education, Self-Care/Home Management,Soft Tissue Mobilization,Taping, Therapeutic Activities, Therapeutic Exercises Modalities Cold Pack/Ice Massage,Electric Stimulation,Hot Packs, Ultrasound Next Visit Focus/Plan Next Note Type Treatment Note Next Visit Plan sumo squat, work on wt acceptance w/ unstable surface under R, instruct in DORY exercise program for patient to do in prep for post-op. Aquatics: patient will be discharged after next visit due to upcoming DORY. ANticipate land and aquatic PT post-op.
--- NOTE | 2021-12-23 13:00 | PT.OTN ---
Current Diagnoses Stiffness of right knee, not elsewhere classified (12/23/21) Muscle weakness (generalized) (12/23/21) Unsteadiness on feet (12/23/21) Fall on same level, unspecified, initial encounter (12/23/21) Presence of unspecified artificial knee joint (12/23/21) Physical Therapy Treatment Note PT-OP-A Visit Information Start: 07/05/21 15:54 Freq: Status: Active Protocol: Document 12/23/21 12:17 SP (Rec: 12/23/21 13:12 SP [id number]) Out-Patient Physical Therapy Visit Information Visit Information Visit Type Treatment Note Visit Start Time 12:17 Visit Stop Time 13:00 Total Visit Minutes 43 Visit Number 35 Number of PLASTER FORM MAKER Visits 2 Evaluation Information Evaluation Date 07/11/21 PT-OP-B Current Condition Start: 07/05/21 15:54 Freq: Status: Active Protocol: Document 07/11/21 15:06 LRN (Rec: 07/11/21 18:30 LRN [id number]) Current Condition History of Current Condition Onset Date 06/28/21 Current Complaints L History of Current Condition Slipper on ice landing on R hip with L leg behind resulting in L distal femur fracture. Pt is 11 days s/p ORIF 06/30/21. PRECAUTIONS: TTWB LLE, knee imimobilizer for comfort, ROM as tolerated L knee. Pt has been doing a HEP (QS, GS, heel slides, assisted hip AB) 2x/day. Pt denies pain except in neck at nighttime during sleep. PMH: Cori TKA, R forefoot fusion, fx R wrist. Prior Treatments and Tests HEP issued post-op. Future Testing and Treatments Planned Pt surgical follow up in 2 days. Treatment Goals Patient/Caregiver Goals Pt goal is to be able to get up and walk when she wants. Pt is agreeable to goal of walkling without the use of an assistive device. Prior Functional Status Baseline Function- ADL's Independent Baseline Function- Mobility Independent Baseline Function- Gait Independent w/o assistive device Baseline Function- Recreation/Hobbies Walked 1.5 miles daily. Hiked with walking pole. Current Functional Impairments (Reported) Functional Limitations- ADL's Wheelchair and walker bound with TTWBing LLE for gait using FWW. Functional Limitations- Mobility/Gait Walked 68' prior to fatigue from UE's. Functional Limitations- Recreation/ Returning to exercise gym for Hobbies neck/shoulder/upper body exercise. Personal Factors Other Personal Factors That May Effect Lives in [place], spouse Therapy/Recovery Marycruz Sumnerw is physical therapy patient at same clinic . Cori TKA, L forefoot fused, herniated disc with discectomy ?L4-L5. Osteopenia. PT-OP-C Subjective Start: 07/05/21 15:54 Freq: Status: Active Protocol: Document 12/23/21 12:17 SP (Rec: 12/23/21 13:12 SP [id number]) OP-PT Subjective Patient Comments Patient Comments Pt reports anterior DORY scheduled for December 27 at 0530. PT-OP-G Mobility & Gait Start: 07/05/21 15:54 Freq: Status: Active Protocol: Document 07/11/21 15:06 LRN (Rec: 07/11/21 18:30 LRN [id number]) OP Mobility Evaluation Bed Mobility Supine to and from Sit Independent Transfers Sit to Stand Independent with FWW Bed to Chair Transfers Independent with FWW Car Transfers Independent Wheelchair Management Type of Wheelchair Normal Assessment Details Pt able to self propel and maneuver forward, backward and turn around independently. OP Gait Assessment Gait Gait Assistance Required: Independent Distance (Feet) 76 Able to Maintain Weight Bearing Status No During Gait Assistive Devices Assistive Device Front Wheeled Walker Gait Deviations General Gait Pattern Step-to Gait Comments Gait Comments Pt is TTWB LLE. PT-OP-K Range of Motion Start: 07/05/21 15:54 Freq: Status: Active Protocol: Document 10/12/21 13:46 [facility] (Rec: 10/12/21 14:51 [facility] [id number]) Hip Goniometric Range of Motion Hip Left Active Flexion w/Knee Flexed 115 Abduction 22 Knee Goniometric Range of Motion Knee Left Flexion Active (degrees) 116 Extension Active (degrees) 0 PT-OP-M Strength Start: 07/05/21 15:54 Freq: Status: Active Protocol: Document 11/24/21 16:55 [facility] (Rec: 11/24/21 18:59 [facility] [id number]) Hip Strength Hip Manual Muscle Testing Left Flexion (L2) 4+ Good+ Extension (S1) 4- Good- Abduction 3+ Fair+ Adduction 4 Good External Rotation 4- Good- Internal Rotation 4- Good- Right Flexion (L2) 5 Normal Extension (S1) 4- Good- Abduction 4+ Good+ Adduction 5 Normal External Rotation 5 Normal Internal Rotation 5 Normal Knee Strength Knee Manual Muscle Testing Right Flexion (S2) 5 Normal Extension (L3) 5 Normal Left Flexion (S2) 5 Normal Extension (L3) 3+ Fair+ Ankle/Foot Strength Ankle and Foot Manual Muscle Testing Right Dorsiflexion (L4) 5 Normal Plantarflexion (S1) 5 Normal Left Dorsiflexion (L4) 5 Normal Plantarflexion (S1) 5 Normal Comments PF tested seated PT-OP-Q Treatments Start: 07/05/21 15:54 Freq: Status: Active Protocol: Document 12/23/21 12:17 SP (Rec: 12/23/21 13:12 SP [id number]) Gym Equipment Shuttle Recovery Bilateral Squats Details pt does get click and occ clunk-improved w/PT tib IR Resistance 50# Shuttle Recovery Platform Stable Reps/Time x10 pain L hip so stopped Shuttle Balance red Details WBOS, NBOS, tandem Comments 1. wt shift-good 2. Head turns- CG- Min A 3. EC- WBOS 30 s,NBOS 8 sec tandem 4 sec each foot posiiton Sport Cord green Exercise Details forward Cord/Resistance green Reps/Duration 5x Comments cues for soft knee left, glut activation, dec speed emphasis on weight acceptance and stability Therapeutic Exercises Supine Exercises post op anterior hip HEP Supine Exercise Name glut & quad set, HS, AP (NO SLR or HIP ABD) Side left Equipment Used provided post op folder Reps/Minutes 10 reps each Comments good form Standing Exercises step ups Standing Exercise Name forward, lateral Side left Equipment Used 8 step HR Reps/Minutes 4x Comments repeated LLE ascend/ opp LE descend, cued level pelvis squat Standing Exercise Name sit<>stand Resistance arms across chest Equipment Used 20 table height Reps/Minutes x10 Comments cued even BLE WB. PT-OP-S Aquatic Treatment Start: 08/26/21 14:30 Freq: Status: Active Protocol: Document 12/21/21 11:45 [facility]AK (Rec: 12/22/21 17:39 SAK [id number]) Aquatics Treatment Pool Entry/Exit Pool Entry/Exit Method Stairs Assistance Independent Comments cori UE support Water Walking walking with LE floatation Water Level Waist Level Walking Equipment Ankle Floats Comments walking forward and sideways fast walking Water Level Chest Level Comments large ankle floats, large fins march kick Water Level Chest Level Walking Equipment Ankle Floats step-overs Water Level Chest Level Walking Equipment Ankle Floats Comments fwd and back, 8 boxes step-ups Water Level Waist Level Walking Equipment Ankle Floats Comments 10x2, 8 boxes, cues for quad and gluteal engagement Lunge Walk Water Level Waist Level Walking Equipment Ankle Floats Comments fwd/bkw Marching Water Level Waist Level Walking Equipment Ankle Floats, fins Forwards Water Level Chest Level Walking Equipment fins Lower Extremity Exercises hip abd with resistnce Body Position Standing Water Level Waist Level Equipment stretch cords Reps/Duration 2x 15 LLE, 2x 10 RLE Comments also hip ext noodle push down Body Position Standing Water Level Chest Level Equipment Large Noodle Comments no UE support hip f/e;ab/ad;circles Details hh on wall (min) Body Position Standing Water Level Chest Level Reps/Duration 20x B Comments large ankle floats Lower Extremity Stretches LAQ Body Position Standing Water Level Waist Level Equipment fins Reps/Duration 20x Comments min UE support for balance, TFL Details at wall Body Position Standing Water Level Chest Level Equipment large ankle floats cori Reps/Duration 2 x 30' B quads, hip flexors Details at wall Body Position Standing Water Level Waist Level Equipment large ankle floats cori Reps/Duration 2 x 30 B Dorsey Activities Dorsey Activities Bicycle,[place] Other Activities Sit kicks deep kicks Equipment belt, fins PT-OP-T Assessment and Plan Start: 07/05/21 15:54 Freq: Status: Active Protocol: Document 12/23/21 12:17 SP (Rec: 12/23/21 13:12 SP [id number]) Physical Therapy Assessment Goals ambulation Short Term Goal (STG) Pt will be able to amb short distances w/o AD w/good gait mechanics 10/12-can amb w/cane short and long distances but still requires external support 11/24 can walk w/o AD but requires cues 12/23/21: pt requires SPC for gait for support and quality gait. STG Duration 12/25 progressing 12/23/21 Bariatric Surgeon Goal (LTG) Pt will be able to amb 2 miles with 1 walking stick w/o inc pian greater than 2/10. LTG Duration 01/24/22 Three Impairment Decreased function per LEFS score of 17 Impairment LEFS score of 17 indicates 60- 79% impaired. Short Term Goal (STG) Improve function per LEFS score of no less than 32 (40- 59% impaired) 09/06-n/t STG Duration achieved to 39/80 Bariatric Surgeon Goal (LTG) Improve function per LEFS score no less than 63 (1-19% impaired). 11/24-n/t LTG Duration 01/24/22 One Impairment Lacks appropriate self care HEP Short Term Goal (STG) Pt will be independent in a self care HEP to promote ongoing L knee/hip strengthening/ROM and core stabilization. 09/06-advancinga s able STG Duration achieved progressing as able Mcfp Goal (LTG) Pt will have at least 4+/5 LE MMT in all planes B to show improved stability of hip and knee to improve ability to mobilize int he community 10/12-improving 11/24-cont improvement LTG Duration 01/24 Assessment Summary Assessment Pt improved quad and hip abd facilitation on LLE with cues level pelvis, little to no pain, except for shuttle recovery, discontinued due to pain. Pt L anterior hip surgery 12/27/21, is set up for post op appt in Jan 4 weeks post op per ortho instructions . Physical Therapy Plan Frequency and Duration Frequency of Treatment 1-2x/wk Duration of Treatment 2 months Plan of Care Start Date 11/24/21 Plan of Care End Date 01/24/22 Therapeutic Interventions Therapeutic Interventions Aquatic Therapy,Balance Training,Gait Training,Home Exercise Program,Joint Mobilizations,Manual Therapy, Neuromuscular Re-education, Patient/Caregiver Education, Self-Care/Home Management,Soft Tissue Mobilization,Taping, Therapeutic Activities, Therapeutic Exercises Modalities Cold Pack/Ice Massage,Electric Stimulation,Hot Packs, Ultrasound Next Visit Focus/Plan Next Note Type Re-Evaluation Next Visit Plan Reval DORY anterior 12/27/21, Restart PT in Jan with new referral.
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
== END 2022-09-11 10:30 | disposition home or self-care (01) ==
LOC: PHYS 12:15
PROVIDERS: Family Provider Orthopaedic Surgery Orthopaedic Surgery of the Spine; PCP Family Medicine; Referring Provider Orthopaedic Surgery; Visit Provider Orthopaedic Surgery
DX: M25.661 Stiffness of right knee, not elsewhere classified (principal); W18.30XA Fall on same level, unspecified, initial encounter; M62.81 Muscle weakness (generalized); R26.81 Unsteadiness on feet; Z96.659 Presence of unspecified artificial knee joint
CPT/HCPCS: 97110; 97112; 97113; 97116; 97140; 97162; 97164; 97530; 97535

== ENCOUNTER → 2022-03-20 06:42 | Outpatient (CLI) | payer MEDICARE, OTHER, SELFPAY ==
--- NOTE | 2022-03-20 06:45 | DI.ECHO.S_ITS ---
[place] +---------+ [facility] +---------+ : : [address] : : : : [id number] : : : : Phone: [phone]+ Echocardiogram Report + + :Name: CONNIE UPTON Study Date: 03/20/2022 Height: 73 in : :[facility] ReadingLocation: Weight: 185 lb : : Gender: Female BSA: 2.1 m2 : :: 1955 Age: 66 yrs BP: 138/79 mmHg: :Reason For Study: Atrial fibrillation : :Ordering Physician: Mayur, : :Edward Performed By: Malcolm Henderson : :Referring: Edward Merchant : + + Interpretation Summary The ejection fraction is estimated to be 60-65%. There is mild mitral regurgitation. There is mild tricuspid regurgitation. The right ventricular systolic pressure is estimated to be at least 29 mmHg based on an estimated right atrial pressure of 8 mm Hg. Procedure: A two-dimensional transthoracic echocardiogram with color flow and Doppler was performed. The study quality was technically adequate. There is no prior echocardiogram noted for this patient. The patient was in normal sinus rhythm during the exam. Left Ventricle: The left ventricle is normal in size and wall thickness. Left ventricular systolic function is normal. The ejection fraction is estimated to be 60-65%. There are no focal wall motion abnormalities. Diastolic function could not be accurately assessed due to contradictory data. Right Ventricle: The right ventricle is normal in size and function. Atria: Both atria are moderately dilated. The interatrial septum grossly appears intact with no obvious evidence for an atrial septal defect. Mitral Valve: The mitral valve is normal in structure and function. There is mild mitral regurgitation. Aortic Valve: The aortic valve is normal in structure and function. There is trace aortic regurgitation. Tricuspid Valve: The tricuspid valve is normal in structure and function. There is mild tricuspid regurgitation. The right ventricular systolic pressure is estimated to be at least 29 mmHg based on an estimated right atrial pressure of 8 mm Hg. Pulmonic Valve: The pulmonic valve is not well seen, but is grossly normal. There is a trace or physiologic amount of pulmonic regurgitation. Great Vessels: The aortic root is normal size. The ascending aorta is mildly enlarged. The IVC is dilated (diameter is greater than 2.1 cm) yet it collapses greater than 50% with a sniff. This suggests a right atrial pressure of 8 mm Hg. Pericardium/ Pleura There is no pericardial effusion. There is no pleural effusion. MMode/2D Measurements & Calculations LVIDd: 5.1 cm LVOT diam: 2.3 cm LVIDs: 3.5 cm Ao root diam: 3.5 cm FS: 31.4 % asc Aorta Diam: 3.7 cm IVSd: 0.80 cm LVPWd: 0.90 cm LV atkins. diameter/BSA (cm/m^2): 2.4 LV sys. diameter/BSA (cm/m^2): 1.7 LA dimension: 3.3 cm RA long axis: 6.1 cm LA A2 area: 22.8 cm2 IVC diam: 2.5 cm LA A4 area: 28.8 cm2 LA length (vol): 5.8 cm LA vol: 96.4 ml LA vol index: 46.3 ml/m2 TAPSE_phl: 3.0 cm Doppler Measurements & Calculations Ao V2 max: 154.0 cm/sec LVOT Max Juan J: 153.0 cm/sec Ao V2 mean: 106.0 cm/sec LV V1 max P.4 mmHg Ao max P.0 mmHg LV V1 VTI: 35.8 cm Ao mean P.0 mmHg CESAR(I,D): 4.3 cm2 Ao V2 VTI: 34.4 cm CESAR(V,D): 4.1 cm2 sev ratio: 1.0 CESAR indexed to BSA (cm^2/m^2): 2.1 MV E max juan j: 85.9 cm/sec TR max juan j: 231.0 cm/sec MV A max juan j: 57.7 cm/sec TR max P.3 mmHg MV E/A: 1.5 Med Peak E' Juan J: 8.5 cm/sec E/E' med: 10.1 Lat Peak E' Juan J: 9.5 cm/sec E/E' lat: 9.1 E/e' average: 9.6 MV dec time: 0.22 sec SV(LVOT): 148.7 ml AV VR_phl: 0.99 CESAR(VTI)/BSA_phl: 2.1 MV P1/2t-pr_phl: 64.0 msec Reading Physician:12:11 PM
== END ==
PROVIDERS: Family Provider Orthopaedic Surgery Orthopaedic Surgery of the Spine; PCP Family Medicine; Referring Provider Internal Medicine Cardiovascular Disease; Visit Provider Internal Medicine Cardiovascular Disease
DX: I48.0 Paroxysmal atrial fibrillation (principal); I34.0 Nonrheumatic mitral (valve) insufficiency; I07.1 Rheumatic tricuspid insufficiency
CPT/HCPCS: 93306

== ENCOUNTER → 2022-09-28 16:03 | Outpatient (CLI) | payer MEDICARE, OTHER, SELFPAY ==
--- NOTE | 2022-09-28 16:04 | DI.MG.S_ITS ---
BILATERAL DIGITAL SCREENING MAMMOGRAM 3D/2D WITH CAD: 09/28/2022 CLINICAL: Routine screening. Family history of breast cancer. Comparison is made to exams dated: 03/07/2019 mammogram and 08/17/2016 mammogram - outside facility. Both breasts are heterogeneously dense, which may obscure small masses (category c / 51-75% glandular tissue). Current study was also evaluated with a Computer Aided Detection (CAD) system. There are benign calcifications in both breasts. There also is a biopsy clip in the right breast. No significant masses, calcifications, or other findings are seen in either breast. There has been no significant interval change. IMPRESSION: BENIGN There is no mammographic evidence of malignancy. A 1 year screening mammogram is recommended. Based on the Tyrer Cuzick model (a risk assessment model) the patient's lifetime risk is 16.7% and her 10 year risk is 10.1%. According to the ACR, ACS, and NCCN guidelines, an annual breast MRI exam along with mammogram is recommended if the patient's lifetime risk is 20% or greater. This exam was interpreted at Station ID: [id number]. NOTE: For mammograms, a report in lay terms will be sent to the patient. Approximately 15% of breast malignancies will not be visualized mammographically. In the management of a palpable breast mass, a negative mammogram must not discourage biopsy of a clinically suspicious lesion. Electronically Signed By: Franklin muhammad/[email or web address]:09/29/2022 09:13:26 letter sent: Normal Exam ACR BI-RADS Category 2: Benign Finding(s) [id number]
== END ==
PROVIDERS: Family Provider Orthopaedic Surgery Orthopaedic Surgery of the Spine; PCP Family Medicine; Referring Provider Family Medicine; Visit Provider Family Medicine
DX: Z12.31 Encounter for screening mammogram for malignant neoplasm of breast (principal)
CPT/HCPCS: 77063; 77067

== ENCOUNTER → 2022-10-13 13:34 | Outpatient (CLI) | payer MEDICARE, OTHER, SELFPAY ==
--- NOTE | 2022-10-13 | DI.MRI.S_ITS ---
PROCEDURE: MR LUMBAR SPINE WO CON INDICATIONS: Spinal stenosis, lumbar region with neurogenic claudication TECHNIQUE: Noncontrast sagittal T1 spin echo and T2 fast echo, sagittal STIR, and T2 fast spin echo through the lumbar spine. In cases with scoliosis, additional coronal T2 fast spin echo may be performed. COMPARISON: [facility], MR, L-SPINE WITHOUT CONTRAST, 09/07/2014, 18:15. FINDINGS: Image quality: Excellent. Alignment and Curvature: There is normal bony alignment. Bone Marrow: Marrow is of normal overall signal. No acute vertebral body compression fractures. Spinal Cord: Conus medullaris terminates at the L1 level. Visualized cord demonstrates normal signal and size. Paraspinous Soft Tissues: No paravertebral masses. T12-L1: Normal appearance. L1-L2: Disc space is preserved. Circumferential disc bulge without central stenosis. No foraminal stenosis. L2-L3: Disc space narrowing and circumferential disc bulge with hypertrophic facet joints present. Mild to moderate central stenosis. No foraminal stenosis L3-L4: Mild disc space narrowing. Circumferential disc bulge and hypertrophic facet joints results in [id number]-[id number] central stenosis. No foraminal stenosis L4-L5: Disc space is preserved. Hypertrophic facet joints present. Mild to moderate central stenosis. No foraminal stenosis L5-S1: Disc space narrowing and circumferential bulge. No central or foraminal stenosis IMPRESSION: Multilevel degenerative disc disease and arthropathy results in varying degrees of central and foraminal stenosis including mild to moderate central stenosis L2-3, L3-4 and L4-5 Approved by: Maurice Cabrera M.D. on 10/13/2022 at 14:19
== END ==
PROVIDERS: Family Provider Orthopaedic Surgery Orthopaedic Surgery of the Spine; PCP Family Medicine; Referring Provider Orthopaedic Surgery Orthopaedic Surgery of the Spine; Visit Provider Orthopaedic Surgery Orthopaedic Surgery of the Spine
DX: M48.062 Spinal stenosis, lumbar region with neurogenic claudication (principal); M51.36 Other intervertebral disc degeneration, lumbar region; M47.816 Spondylosis without myelopathy or radiculopathy, lumbar region
CPT/HCPCS: 72148

== ENCOUNTER 2022-10-27 09:00 | Outpatient (RCR) | payer MEDICARE, OTHER, SELFPAY ==
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
--- NOTE | 2022-10-19 13:00 | PT.OPPOC ---
Physical, Occupational & Speech Therapy At [facility] Current Diagnoses Low back pain, unspecified (10/19/22) Pain in thoracic spine (10/19/22) Periprosthetic fracture around other internal prosthetic joint, subsequent encounter (10/19/22) Difficulty in walking, not elsewhere classified (10/19/22) Abnormal posture (10/19/22) Weakness (10/19/22) Presence of unspecified artificial knee joint (10/19/22) Visit Care Team Role Provider Type Shekhar Olvera MD Primary Care Provider Non-Staff Specialty: Family Practice Address: [address] [place] [address], [id number] Email: Shahzad Fu MD Family Provider Physician Specialty: Orthopedics Orthopedic Surgery Address: [address] [place] [address], [id number] Email: [email or web address] Larry Attending Provider Non-Staff Referring Provider Specialty: [facility] Practice Address: [address] [place] [address], [facility] Email: Plan Of Care PT-OP-T Assessment and Plan Start: 08/21/22 11:14 Freq: Status: Active Protocol: Document 10/19/22 08:46 [facility] (Rec: 10/19/22 12:36 [facility] [id number]) Physical Therapy Assessment Goals strength Short Term Goal (STG) Pt will be indep w/HEP STG Duration achieved advancing as able Filenet Architect Goal (LTG) Pt will score at least 4/5 on all MMT in BLEs and at least 3 /5 LPM to showi mrpoved core and LE strength in order to make typical daily activities easier for pt. 10/19-much improved LTG Duration 7/10 activities Prison Goal (LTG) Pt will be able to do all typical household and garden work without inc pain into back and/or LLE greater than 2 /10 10/12/22: progressing: was able to partial mow lawn and weed eating approx 1 hr pain about 4/10 when grabs but doesn't do all the time. LTG Duration 01/08 balance Short Term Goal (STG) Pt will improve SLS on L to at least 5 sec to show improved stability and dec fall risk 10/12/22: STG Duration achieved to 5 sec L; R 15 sec Prison Goal (LTG) Pt will be able to do SLS B for at least 10 sec to show improved balance and dec fall risk 10/19-achieved R; L 5 sec LTG Duration 7 walking Short Term Goal (STG) Pt will be able to walk at least 1 mile w/use of only 1 walking stick without inc pain in LLE or back greater than 2 /10. 10/12/22: GOAL MET: painfree walking 1 miles using 1 trek pole. STG Duration 09/28/22 GOAL MET 10/12/22 Filenet Architect Goal (LTG) Pt will be able to walk at least 2 miles w/o use of walking sticks w/o inc pain in LLE or back greater than 2/10 . 10/19- just over 1 mile and back pain after LTG Duration 01/08 Three Impairment LEFS 45/80 Short Term Goal (STG) Pt will improve LEFS score to at least 53/80 to show improved functional ability. STG Duration achieved to 56 Filenet Architect Goal (LTG) Pt will improve LEFS score to at least 61/80 to show improved functional ability. LTG Duration 01/08 Assessment Summary Assessment Pt is making excellent progress w/PT but cont to have LLE weakness and impaired mecahnics w/gait d/t this along w/dec core control that controibutes to her pain that radiates from LS to cervical region. She would benefit from cont PT to work on full spinal mobility and stability in order to dec pain and improve functional ability>S eh will be gone for 1 month vacation in October but plan to resume PT upon return. Physical Therapy Plan Frequency and Duration Frequency of Treatment 2x/Week Duration of treatment (weeks) 12 Plan of Care Start Date 10/19/22 Plan of Care End Date 01/11/23 Therapeutic Interventions Therapeutic Interventions Balance Training,Gait Training ,Home Exercise Program,Joint Mobilizations,Manual Therapy, Neuromuscular Re-education, Orthotic/Prosthetic Management ,Patient/Caregiver Education, Self-Care/Home Management,Soft Tissue Mobilization,Taping, Therapeutic Activities, Therapeutic Exercises Modalities Cold Pack/Ice Massage,Electric Stimulation,Hot Packs, Infrared Therapy,Traction- Mechanical,Ultrasound Next Visit Focus/Plan Next Note Type Treatment Note Next Visit Plan POC: upper tspine , pubic bone mobility, L Rectus fem work, ITB work, scar work for manual , PNF patterns for gait, rolling and full body trunk integration Plan of Care Dates Plan of Care Start Date 10/19/22 Plan of Care End Date 01/11/23 Electronically Signed by: Brit Peterson, PT 10/19/22 1300 If you are in agreement with this Plan of Care, please return a signed and dated copy. I have reviewed this Plan of Care and certify that the skilled therapy services above are required to meet the patient?s needs. Physician Signature Date Printed Name and Credentials Clinical Instructor Signature Printed Name and Credentials
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
== END 2023-01-09 10:40 | disposition home or self-care (01) ==
LOC: PHYS 09:00
PROVIDERS: Family Provider Orthopaedic Surgery Orthopaedic Surgery of the Spine; PCP Family Medicine; Referring Provider Registered Nurse; Visit Provider Registered Nurse
DX: M97.8XXD Periprosthetic fracture around other internal prosthetic joint, subsequent encounter (principal); Z96.659 Presence of unspecified artificial knee joint; R26.2 Difficulty in walking, not elsewhere classified; R29.3 Abnormal posture; R53.1 Weakness; M54.50 Low back pain, unspecified; M54.6 Pain in thoracic spine
CPT/HCPCS: 97110; 97112; 97116; 97140; 97162; 97535; 97750

== ENCOUNTER → 2023-10-25 14:19 | Outpatient (CLI) | payer MEDICARE, OTHER, SELFPAY ==
--- NOTE | 2023-10-25 14:20 | DI.MG.S_ITS ---
BILATERAL DIGITAL SCREENING MAMMOGRAM 3D/2D WITH CAD: 10/25/2023 CLINICAL: Routine screening. Family history of breast cancer. Comparison is made to exams dated: 09/28/2022 mammogram - [facility], 03/07/2019 mammogram, and 05/12/2017 mammogram - outside facility. Both breasts are extremely dense, which lowers the sensitivity of mammography (category d />75% glandular tissue). Current study was also evaluated with a Computer Aided Detection (CAD) system. There are benign calcifications in both breasts. There also is a biopsy clip in the right breast. No significant masses, calcifications, or other findings are seen in either breast. There has been no significant interval change. IMPRESSION: BENIGN There is no mammographic evidence of malignancy. A 1 year screening mammogram is recommended. Based on Tyrer-Cuzick model (a risk assessment model), the patient's lifetime risk is 23.2% and her 10 year risk is 15.2%. If a patient has an elevated risk, a more comprehensive evaluation should be considered and/or a referral to a genetic counselor. The [place] [employer], [place] [employer], and NCCN Guidelines advise the consideration of Breast MRI as an adjunct to screening mammography in patients whose Lifetime risk to develop breast cancer is 20% or higher. This exam was interpreted at Station ID: [id number]. NOTE: For mammograms, a report in lay terms will be sent to the patient. Approximately 15% of breast malignancies will not be visualized mammographically. In the management of a palpable breast mass, a negative mammogram must not discourage biopsy of a clinically suspicious lesion. Electronically Signed By: Florentino Kwon M.D. lc/:10/25/2023 17:02:03 letter sent: Normal Exam ACR BI-RADS Category 2: Benign Finding(s) [id number]
--- NOTE | 2023-10-25 14:20 | DI.RAD.S_ITS ---
PROCEDURE: XR DEXA AXIAL SKELETON INDICATIONS: Age-related osteoporosis COMPARISON: None. FINDINGS: Lumbar Spine: L1, L2, L4. Bone mineral density 1.002 g/cm2, T score -0.3. Right Hip: Bone mineral density 0.749 g/cm2, T score -1.6. Right Femoral Neck: Bone mineral density 0.712 g/cm2, T score -1.2. Left Forearm: Bone mineral density 0.517 g/cm2, T score -2.9. Fracture Risk Calculation (when applicable): Not provided due to treatment for osteoporosis. (T score greater or equal to -1.0 to: NORMAL) (T score from -1.1 to -2.4: OSTEOPENIA) (T score less than or equal to -2.5: OSTEOPOROSIS) IMPRESSION: Osteoporosis. Follow-up guidelines as follows: Osteoporosis: Consider a repeat DEXA and Vertebral Fracture Assessment (VFA) exam in 2 years or sooner if medically necessary, to reassess this patient's status. Osteopenia: Consider a repeat DEXA in 2-3 years to reassess this patient's status, or if there is a new clinical indication. Normal: Consider a repeat DEXA in 5 years or sooner, or if there is a new clinical indication. Dictated by: Franklin Whittington M.D. on 10/25/2023 at 22:10 Approved by: Franklin Whittington M.D. on 10/25/2023 at 22:12
== END ==
PROVIDERS: Family Provider Orthopaedic Surgery Orthopaedic Surgery of the Spine; PCP Physician Assistant; Referring Provider Physician Assistant; Visit Provider Physician Assistant
DX: Z12.31 Encounter for screening mammogram for malignant neoplasm of breast (principal); M81.0 Age-related osteoporosis without current pathological fracture; Z80.3 Family history of malignant neoplasm of breast; R92.343 Mammographic extreme density, bilateral breasts
CPT/HCPCS: 77063; 77067; 77080; 77081